=== PATIENT | male | born 1985 | race Caucasian/White ===

== ENCOUNTER → 2016-06-18 | Outpatient (CLI) | payer BC ==
[2016-06-18 15:49] LABS: CH 29.2; CHCM 32.5; HCT 43.9 % (39.0-53.0); HDW 2.26; HGB 14.1 gm/dL (13.0-17.5); MCHC 32.2 g/dL (31.0-37.0); MCV 90.1 fL (80.0-100.0); Mean Platelet Volume 7.6; RBC 4.87 m/uL (4.30-5.90)
[2016-06-18 16:01] LABS: ALT 32 U/L (21-72); AST 17 U/L (17-59); Alkaline Phosphatase 109 U/L (38-126); Anion Gap 11 mmol/L; Blood Urea Nitrogen 21 mg/dL (9-20); C Reactive Protein <5.0 mg/L (<10.0); Calcium 9.7 mg/dL (8.4-10.2); Carbon Dioxide 30 mmol/L (22-30); Chloride 99 mmol/L (98-107); Glucose 100 mg/dL (74-99); Non-African American GFR(MDRD) >60 (>60 ml/min/1.73 sqM); Potassium 4.8 mmol/L (3.5-5.1); Sodium 140 mmol/L (137-145); Total Bilirubin 0.3 mg/dL (0.2-1.3); Total Protein 7.3 g/dL (6.3-8.2)
[2016-06-18 16:51] LABS: Erythrocyte Sedimentation Rate 7 mm/hr (0-15)
== END | disposition home or self-care (01) ==
LOC: LABWHC1 15:18
DX: K50.80 Crohn's disease of both small and large intestine without complications (principal)
CPT/HCPCS: 36415; 80053; 82306; 85027; 85652; 86140

== ENCOUNTER → 2016-09-04 | Outpatient (CLI) | payer BC ==
[2016-09-04 08:36] LABS: CH 29.5; CHCM 32.5; HCT 42.6 % (39.0-53.0); HDW 2.22; HGB 13.8 gm/dL (13.0-17.5); MCH 29.6 pg (25.0-35.0); MCHC 32.4 g/dL (31.0-37.0); MCV 91.3 fL (80.0-100.0); Mean Platelet Volume 7.3; RBC 4.67 m/uL (4.30-5.90); RDW 13.2 % (11.5-15.5); WBC 7.2 k/uL (3.8-10.6)
[2016-09-04 11:41] LABS: ALT 26 U/L (21-72); AST 17 U/L (17-59); Alkaline Phosphatase 73 U/L (38-126); Anion Gap 11 mmol/L; Blood Urea Nitrogen 18 mg/dL (9-20); C Reactive Protein <5.0 mg/L (<10.0); Calcium 9.6 mg/dL (8.4-10.2); Carbon Dioxide 28 mmol/L (22-30); Chloride 102 mmol/L (98-107); Glucose 86 mg/dL (74-99); Non-African American GFR(MDRD) >60 (>60 ml/min/1.73 sqM); Sodium 141 mmol/L (137-145); Total Bilirubin 0.5 mg/dL (0.2-1.3); Total Protein 7.2 g/dL (6.3-8.2)
[2016-09-04 11:59] LABS: Erythrocyte Sedimentation Rate 10 mm/hr (0-15)
== END | disposition home or self-care (01) ==
LOC: LABWHC1 06:40
DX: K50.80 Crohn's disease of both small and large intestine without complications (principal)
CPT/HCPCS: 36415; 80053; 82542; 82657; 85027; 85652; 86140

== ENCOUNTER → 2016-09-20 | Outpatient (CLI) | payer BC ==
[2016-09-20 16:11] LABS: CH 29.7; CHCM 33.6; HCT 39.3 % (39.0-53.0); HDW 2.35; HGB 13.6 gm/dL (13.0-17.5); MCH 30.6 pg (25.0-35.0); MCHC 34.6 g/dL (31.0-37.0); MCV 88.4 fL (80.0-100.0); Mean Platelet Volume 7.4; RBC 4.45 m/uL (4.30-5.90); RDW 12.2 % (11.5-15.5); WBC 7.4 k/uL (3.8-10.6)
[2016-09-20 16:24] LABS: ALT 24 U/L (21-72); AST 20 U/L (17-59); Alkaline Phosphatase 79 U/L (38-126); Anion Gap 9 mmol/L; Blood Urea Nitrogen 21 mg/dL (9-20); C Reactive Protein 9.2 mg/L (<10.0); Calcium 9.9 mg/dL (8.4-10.2); Carbon Dioxide 29 mmol/L (22-30); Chloride 102 mmol/L (98-107); Glucose 89 mg/dL (74-99); Non-African American GFR(MDRD) >60 (>60 ml/min/1.73 sqM); Potassium 4.1 mmol/L (3.5-5.1); Sodium 140 mmol/L (137-145); Total Bilirubin 0.5 mg/dL (0.2-1.3); Total Protein 7.6 g/dL (6.3-8.2)
[2016-09-20 16:55] LABS: Erythrocyte Sedimentation Rate 18 mm/hr (0-15)
== END ==
LOC: LABWHC1 15:48
DX: K50.80 Crohn's disease of both small and large intestine without complications (principal)
CPT/HCPCS: 36415; 80053; 82542; 82657; 85027; 85652; 86140

== ENCOUNTER 2016-09-24 12:21 | Day surgery (SDC) | payer BC ==
[2016-09-20 12:39] VITALS: BMI 24.3
[~2016-09-24 12:21] MED LIST: LACTATED RINGERS 1,000 ML IV SCH; LIDOCAINE 1% 20 ML VIAL (10MG/ML) FOR IV START INTRADERMA PRN
[2016-09-24 12:29] VITALS: RESP 18; TEMP 98
[2016-09-24] MEDS ORDERED: LACTATED RINGERS 1,000 ML IV ONE (12:37)
[2016-09-24 12:41] LABS: Glucose,Whole Blood 88 mg/dL (75-99)
[2016-09-24] MEDS ORDERED: PROPOFOL 10 MG/ML 20 ML VIAL IV ONE (14:34)
[2016-09-24 15:31] VITALS: BP 123/79; PULSE 71
--- NOTE | 2016-09-28 03:59 | P.PCN ---
Date of Procedure: 09/24/16 Procedure(s) Performed: Procedure: Incomplete colonoscopy with biopsy. Preoperative diagnosis: Crohn's disease. Postoperative diagnosis: 1. Inability to to advance the endoscope secondary to sigmoid stricture. 2. Mild to moderate activity in the areas examined. Brief clinical history: The patient is a 31-year-old male who was diagnosed with Crohn's disease around 8 years ago. The patient was steroid dependent and required Remicade starting June 2012 for active stricturing Crohn's disease with control of his symptoms. He had to be changed to humira last year because of reaction to remicade. This in turn had to be discontinued last month because of reactions that started to occur consistently after his injections. He is currently om imuran and steroids. I scheduled this evaluation to assess activity as patient reports symptoms with no corresponding changes clinically and in his inflammattory markers. Procedure: With the patient on his left lateral decubitus position and after informed consent and adequate sedation,the perianal area was inspected and it did not show any fissures or fistulas and there were no obvious skin tags. There were no masses felt on digital rectal examination. The Olympus PCF H180 AL videocolonoscope was then inserted in the rectum in the usual fashion. I was not able to advance the endoscope due to a strictured area in the sigmoid. The involved segment in the sigmoid cobblestoning and edema with friability but no spontaneous bleeding and small ulcerations. There were uninvolved areas that showed normal looking mucosa. I obtained biopsies from the sigmoid, I then retroflexed the endoscope in the rectum before the endoscope was withdrawn. The patient tolerated the procedure well. Plan: The findings were shared with the patient and his parents. Will await pathology results. Will proceed with the tapering prednisone schedule while imuran is getting on board. Will send stool studies. He has an appointment for F /U in the office on the . I will keep you updated on his progress.
== END 2016-09-24 16:37 | disposition home or self-care (01) ==
LOC: ORWHC2ENDO 12:21
DX: K52.9 Noninfective gastroenteritis and colitis, unspecified (principal); K56.69 Other intestinal obstruction; K50.90 Crohn's disease, unspecified, without complications; Z79.899 Other long term (current) drug therapy; Z79.52 Long term (current) use of systemic steroids; Z88.8 Allergy status to other drugs, medicaments and biological substances
CPT/HCPCS: 88305; 87324; 87493; 87045; 87046; 45331; J2704; 45380

== ENCOUNTER → 2016-10-02 | Outpatient (CLI) | payer BC ==
[2016-10-02 17:25] LABS: CH 29.7; HCT 40.7 % (39.0-53.0); HDW 2.31; HGB 13.5 gm/dL (13.0-17.5); MCHC 33.2 g/dL (31.0-37.0); MCV 90.4 fL (80.0-100.0); RBC 4.51 m/uL (4.30-5.90); RDW 12.6 % (11.5-15.5); WBC 8.5 k/uL (3.8-10.6)
[2016-10-02 17:42] LABS: ALT 27 U/L (21-72); AST 22 U/L (17-59); Alkaline Phosphatase 70 U/L (38-126); Amylase 115 U/L (30-110); Anion Gap 10 mmol/L; Blood Urea Nitrogen 19 mg/dL (9-20); C Reactive Protein 37.7 mg/L (<10.0); Calcium 9.6 mg/dL (8.4-10.2); Carbon Dioxide 29 mmol/L (22-30); Chloride 98 mmol/L (98-107); Glucose 92 mg/dL (74-99); Non-African American GFR(MDRD) >60 (>60 ml/min/1.73 sqM); Potassium 4.7 mmol/L (3.5-5.1); Sodium 137 mmol/L (137-145); Total Bilirubin 0.4 mg/dL (0.2-1.3); Total Protein 7.6 g/dL (6.3-8.2)
[2016-10-02 18:34] LABS: Erythrocyte Sedimentation Rate 41 mm/hr (0-15)
== END | disposition home or self-care (01) ==
LOC: LABWHC1 17:04
DX: K50.80 Crohn's disease of both small and large intestine without complications (principal); R21 Rash and other nonspecific skin eruption
CPT/HCPCS: 36415; 80053; 82150; 83690; 85027; 85652; 86140

== ENCOUNTER → 2016-11-06 | Outpatient (CLI) | payer BC ==
[2016-11-06 07:08] LABS: CH 30.9; CHCM 32.6; HCT 42.9 % (39.0-53.0); HDW 2.23; HGB 13.8 gm/dL (13.0-17.5); MCH 30.6 pg (25.0-35.0); MCHC 32.2 g/dL (31.0-37.0); Mean Platelet Volume 6.9; RBC 4.52 m/uL (4.30-5.90); WBC 7.4 k/uL (3.8-10.6)
[2016-11-06 08:36] LABS: ALT 30 U/L (21-72); AST 18 U/L (17-59); Alkaline Phosphatase 70 U/L (38-126); Amylase 48 U/L (30-110); Anion Gap 8 mmol/L; Blood Urea Nitrogen 21 mg/dL (9-20); C Reactive Protein 5.9 mg/L (<10.0); Calcium 9.4 mg/dL (8.4-10.2); Carbon Dioxide 29 mmol/L (22-30); Chloride 103 mmol/L (98-107); Glucose 93 mg/dL (74-99); Non-African American GFR(MDRD) >60 (>60 ml/min/1.73 sqM); Potassium 4.3 mmol/L (3.5-5.1); Sodium 140 mmol/L (137-145); Total Bilirubin 0.6 mg/dL (0.2-1.3); Total Protein 6.6 g/dL (6.3-8.2)
[2016-11-06 10:18] LABS: Erythrocyte Sedimentation Rate 8 mm/hr (0-15)
== END | disposition home or self-care (01) ==
LOC: LABWHC1 06:38
DX: K50.80 Crohn's disease of both small and large intestine without complications (principal)
CPT/HCPCS: 36415; 80053; 82150; 83690; 85027; 85652; 86140

== ENCOUNTER → 2017-01-10 | Outpatient (CLI) | payer BC ==
[2017-01-10 16:38] LABS: CHCM 34.1; HCT 41.4 % (39.0-53.0); HDW 2.37; HGB 13.9 gm/dL (13.0-17.5); MCH 30.7 pg (25.0-35.0); MCHC 33.7 g/dL (31.0-37.0); MCV 91.1 fL (80.0-100.0); RBC 4.54 m/uL (4.30-5.90); WBC 5.9 k/uL (3.8-10.6)
[2017-01-10 17:07] LABS: ALT 27 U/L (21-72); AST 24 U/L (17-59); Alkaline Phosphatase 101 U/L (38-126); Anion Gap 11 mmol/L; Blood Urea Nitrogen 23 mg/dL (9-20); C Reactive Protein <5.0 mg/L (<10.0); Calcium 9.7 mg/dL (8.4-10.2); Carbon Dioxide 27 mmol/L (22-30); Chloride 103 mmol/L (98-107); Glucose 82 mg/dL (74-99); Non-African American GFR(MDRD) 55 (>60 ml/min/1.73 sqM); Sodium 141 mmol/L (137-145); Total Bilirubin 0.3 mg/dL (0.2-1.3)
[2017-01-10 18:49] LABS: Erythrocyte Sedimentation Rate 13 mm/hr (0-15)
== END | disposition home or self-care (01) ==
LOC: LABWHC1 16:12
DX: K50.80 Crohn's disease of both small and large intestine without complications (principal)
CPT/HCPCS: 36415; 80053; 85027; 85652; 86140

== ENCOUNTER → 2017-05-30 | Outpatient (CLI) | payer BC ==
[2017-05-30 18:03] LABS: Basophils % (A) 0 %; Eosinophils % (A) 1 %; HCT 42.3 % (39.0-53.0); HGB 13.3 gm/dL (13.0-17.5); Lymphocytes # (A) 1.7 k/uL (1.0-4.8); Lymphocytes % (A) 21 %; MCH 28.5 pg (25.0-35.0); MCHC 31.3 g/dL (31.0-37.0); MCV 91.1 fL (80.0-100.0); Mean Platelet Volume 7.7; Monocytes # (A) 0.6 k/uL (0-1.0); Monocytes % (A) 8 %; Neutrophils # (A) 5.7 k/uL (1.3-7.7); Neutrophils % (A) 70 %; Platelet Count 298 k/uL (150-450); RBC 4.64 m/uL (4.30-5.90); RDW 14.3 % (11.5-15.5); WBC 8.1 k/uL (3.8-10.6)
[2017-05-30 18:21] LABS: ALT 32 U/L (21-72); AST 18 U/L (17-59); Alkaline Phosphatase 96 U/L (38-126); Anion Gap 10 mmol/L; Blood Urea Nitrogen 22 mg/dL (9-20); C Reactive Protein 11.1 mg/L (<10.0); Calcium 9.9 mg/dL (8.4-10.2); Carbon Dioxide 32 mmol/L (22-30); Chloride 101 mmol/L (98-107); Glucose 95 mg/dL (74-99); Potassium 3.8 mmol/L (3.5-5.1); Sodium 143 mmol/L (137-145); Total Bilirubin 0.3 mg/dL (0.2-1.3); Total Protein 7.1 g/dL (6.3-8.2)
[2017-05-30 19:45] LABS: Erythrocyte Sedimentation Rate 15 mm/hr (0-15)
== END | disposition home or self-care (01) ==
LOC: LABWHC1 17:15
DX: K50.90 Crohn's disease, unspecified, without complications (principal)
CPT/HCPCS: 36415; 80053; 85025; 85652; 86140

== ENCOUNTER → 2017-06-14 | Day surgery (SDC) | payer BC ==
[2017-06-12 12:24] VITALS: BMI 23.1
[~2017-06-14] MED LIST changes: +LIDOCAINE 1% 20 ML VIAL (10MG/ML) FOR IV START INTRADERMA ONE; -LIDOCAINE 1% 20 ML VIAL (10MG/ML) FOR IV START INTRADERMA PRN; +LIDOCAINE 1% INJ 10MG/ML (20 ML MDV) ONE; +PROPOFOL 10 MG/ML 20 ML VIAL IV ONE
[2017-06-14 13:56] VITALS: TEMP 99.4
[2017-06-14 15:52] VITALS: RESP 18
[2017-06-14 16:36] VITALS: BP 117/67; PULSE 90
--- NOTE | 2017-06-14 18:37 | P.PCN ---
Date of Procedure: 06/14/17 Procedure(s) Performed: Procedure: Colonoscopy and biopsy. Preoperative diagnosis: Crohn's disease with abdominal symptoms. Postoperative diagnosis: Active Crohn's disease involving the colon in a segmental fashion with strictures that necessitated using the Olympus-GIF 160 upper endoscope. Terminal ileum was inspected from a close distance and it is somewhat blunted biopsy was obtained. Biopsies also obtained in the transverse colon. Preparation: HalfLytely prep. Sedation: Was provided by anesthesia. Brief clinical history: The patient is a 31-year-old male who was diagnosed with Crohn's disease around 9 years ago. The patient was steroid dependent and required Remicade starting June 2012 for active stricturing Crohn's disease with control of his symptoms. He had to be changed to humira in 2015 because of reaction to remicade. This in turn had to be discontinued because of reactions that started to occur consistently after his injections. He was tried on imuran and and that gave him in reactions with the vasculitis type illness. His last evaluation was in September 2016 and I was not able to advance the endoscope because of his sigmoid stricture. The patient was doing clinically well after that off any medications until recently when he started to have episodes of abdominal pain and diarrhea every time he eats. He started to take prednisone 8 mg tablets which he had and I scheduled him for this evaluation to assess for the activity of his disease. His laboratory evaluation showed a very slight elevation and the CRP but otherwise was not revealing. Procedure: With the patient on his left lateral decubitus position and after informed consent and adequate sedation,the perianal area was inspected and it did not show any fissures or fistulas and there were no obvious skin tags. There were no masses felt on digital rectal examination. The Olympus PCF H190 videocolonoscope was then inserted in the rectum in the usual fashion. I was not able to advance the endoscope due to a strictured area in the sigmoid between 20 and 30 cm from the anal verge. I exchanged the colonoscope for a GIF 160 video upper endoscope which I was able to pass through the stricture with gentle manipulation of the endoscope. I was then able to pass the endoscope all the way to the cecum. I was able to inspect the terminal ileum from a close distance without actually intubate it because of the shorter length of the endoscope. I obtained blind biopsy from the terminal ileum. The right colon didn't appear is involved and there were segment of inflammation in the transverse colon in addition to segments in the descending colon and in the sigmoid distal to the stricture. The involved segments showed cobblestoning and edema with friability and multiple small ulcerations but no spontaneous bleeding. There were uninvolved areas that showed normal looking mucosa. I obtained biopsies from involved segments, I then retroflexed the endoscope in the rectum before the endoscope was withdrawn. The patient tolerated the procedure well. Plan: I discussed at length with the patient and his parents the findings on this exam. I will await biopsy results and plan further treatment accordingly.
== END ==
LOC: ORWHC2ENDO 13:25
DX: K51.80 Other ulcerative colitis without complications (principal); Z79.52 Long term (current) use of systemic steroids; Z88.8 Allergy status to other drugs, medicaments and biological substances
CPT/HCPCS: 88305; 45380; J2001; J2704

== ENCOUNTER → 2017-09-10 | Outpatient (CLI) | payer BC | END | disposition home or self-care (01) | LOC: LABWHC1 17:23 | DX: K50.80 Crohn's disease of both small and large intestine without complications (principal) | CPT/HCPCS: 36415; 82306; 83993; 87324; 89055 ==

== ENCOUNTER → 2017-09-12 | Outpatient (CLI) | payer BC ==
[2017-09-12 07:21] LABS: HCT 40.9 % (39.0-53.0); HGB 13.4 gm/dL (13.0-17.5); MCH 28.1 pg (25.0-35.0); MCHC 32.9 g/dL (31.0-37.0); MCV 85.6 fL (80.0-100.0); Mean Platelet Volume 6.5; Platelet Count 441 k/uL (150-450); RBC 4.77 m/uL (4.30-5.90); RDW 12.4 % (11.5-15.5); WBC 11.7 k/uL (3.8-10.6)
[2017-09-12 10:05] LABS: Albumin 3.3 g/dL (3.5-5.0); C Reactive Protein 14.5 mg/L (<10.0); Calcium 9.4 mg/dL (8.4-10.2); Potassium 4.2 mmol/L (3.5-5.1); Total Bilirubin 0.2 mg/dL (0.2-1.3); Total Protein 6.1 g/dL (6.3-8.2)
[2017-09-12 10:10] LABS: Erythrocyte Sedimentation Rate 23 mm/hr (0-15)
== END | disposition home or self-care (01) ==
LOC: LABWHC1 06:52
DX: K50.80 Crohn's disease of both small and large intestine without complications (principal)
CPT/HCPCS: 36415; 80053; 85027; 85652; 86140

== ENCOUNTER 2017-10-04 14:06 | Emergency (ER) | payer BC ==
[2017-10-04] MEDS ORDERED: SODIUM CHLORIDE 0.9% 1,000 ML IV STA (14:37)
[2017-10-04] MEDS ORDERED: ONDANSETRON 4 MG/2 ML VIAL IVP STA (14:37)
[2017-10-04] MEDS ORDERED: RX INFO: IV CONTRAST WAS GIVEN 1 EACH MISC MISCELLANE PRN (14:37)
[2017-10-04] MEDS ORDERED: MORPHINE SULFATE 4 MG/ML SYRINGE IV STA (14:37)
--- NOTE | 2017-10-04 14:38 | ED ---
Abdominal Pain HPI - General Chief Complaint: Abdominal Pain Stated Complaint: not able to eat Time Seen by Provider: 10/04/17 14:25 Source: patient Mode of arrival: ambulatory Limitations: no limitations - History of Present Illness Initial Comments: Patient complains of abdominal pain, diarrhea and vomiting for about 4 days. His symptoms are getting worse. He has had an appendectomy. He has a history of Crohn's disease. He denies blood in the stool. He has no black or tarry stool. He has no chest or back pain. Nothing makes his pain and other symptoms better or worse. He has taken his usual medication, but it is not helping. He has no weakness, lightheadedness or dizziness. - Related Data Home Medications Medication Instructions Recorded Confirmed predniSONE 50 mg PO DAILY 09/07/15 10/04/17 Certolizumab Pegol [Cimzia] 400 mg SQ Q14D 10/04/17 10/04/17 Cyanocobalamin [Vitamin B-12] 500 mcg PO DAILY 10/04/17 10/04/17 Allergies Allergy/AdvReac Type Severity Reaction Status Date / Time adalimumab [From Humira] Allergy Anaphylaxis Verified 10/04/17 14:32 azathioprine [From Imuran] Allergy Anaphylaxis Verified 10/04/17 14:32 infliximab [From Remicade] Allergy Anaphylaxis Verified 10/04/17 14:32 venom-honey bee Allergy Anaphylaxis Verified 10/04/17 14:32 Review of Systems ROS Statement: Those systems with pertinent positive or pertinent negative responses have been documented in the HPI. ROS Other: All systems not noted in ROS Statement are negative. Past Medical History Past Medical History: GI Bleed Additional Past Medical History / Comment(s): CROHNS-having flare up History of Any Multi-Drug Resistant Organisms: None Reported Past Surgical History: Appendectomy, Hernia Repair Additional Past Surgical History / Comment(s): COLONOSCOPIES/. EYE SURG TO CORRECT LAZY EYE Past Anesthesia/Blood Transfusion Reactions: No Reported Reaction Past Psychological History: No Psychological Hx Reported Smoking Status: Never smoker Past Alcohol Use History: Occasional Past Drug Use History: None Reported - Past Family History Mother Family Medical History: No Reported History General Exam Limitations: no limitations General appearance: alert, in no apparent distress Head exam: Present: atraumatic, normocephalic, normal inspection Eye exam: Present: normal appearance, PERRL, EOMI. Absent: scleral icterus, conjunctival injection, periorbital swelling ENT exam: Present: normal exam, mucous membranes moist Neck exam: Present: normal inspection. Absent: tenderness, meningismus, lymphadenopathy Respiratory exam: Present: normal lung sounds bilaterally. Absent: respiratory distress, wheezes, rales, rhonchi, stridor Cardiovascular Exam: Present: regular rate, normal rhythm, normal heart sounds. Absent: systolic murmur, diastolic murmur, rubs, gallop, clicks GI/Abdominal exam: Present: soft, tenderness, normal bowel sounds. Absent: distended, guarding, rebound, rigid Extremities exam: Present: normal inspection, full ROM, normal capillary refill. Absent: tenderness, pedal edema, joint swelling, calf tenderness Back exam: Present: normal inspection Neurological exam: Present: alert, oriented X3, CN II-XII intact Psychiatric exam: Present: normal affect, normal mood Skin exam: Present: warm, dry, intact, normal color. Absent: rash Course Vital Signs 10/04/17 14:17 Temperature 100.4 F H Pulse Rate 83 Respiratory 20 Rate Blood Pressure 143/86 O2 Sat by Pulse 96 Oximetry Medical Decision Making - Medical Decision Making CT reveals inflammation without acute surgical emergency. I reevaluated the patient. He is able to tolerate oral intake. There is no evidence of an emergency condition that would require admission to the hospital or further workup. 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 He did not request admission, and did not have any recommendations for further treatment at this time. Patient is feeling better and is stable for discharge and outpatient follow-up. - Lab Data Result diagrams: 10/04/17 14:30 10/04/17 14:30 Lab Results 10/04/17 10/04/17 Range/Units 14:30 14:30 WBC 6.9 (3.8-10.6) k/uL RBC 5.11 (4.30-5.90) m/uL Hgb 14.4 (13.0-17.5) gm/dL Hct 43.2 (39.0-53.0) % MCV 84.5 (80.0-100.0) fL MCH 28.2 (25.0-35.0) pg MCHC 33.3 (31.0-37.0) g/dL RDW 12.5 (11.5-15.5) % Plt Count 362 (150-450) k/uL Neutrophils % 90 % Lymphocytes % 4 % Monocytes % 4 % Eosinophils % 0 % Basophils % 0 % Neutrophils # 6.2 (1.3-7.7) k/uL Lymphocytes # 0.3 L (1.0-4.8) k/uL Monocytes # 0.3 (0-1.0) k/uL Eosinophils # 0.0 (0-0.7) k/uL Basophils # 0.0 (0-0.2) k/uL Sodium 139 (137-145) mmol/L Potassium 4.8 (3.5-5.1) mmol/L Chloride 100 (98-107) mmol/L Carbon Dioxide 29 (22-30) mmol/L Anion Gap 10 mmol/L BUN 17 (9-20) mg/dL Creatinine 1.15 (0.66-1.25) mg/dL Est GFR (CKD-EPI)AfAm >90 (>60 ml/min/1.73 sqM) Est GFR (CKD-EPI)NonAf 84 (>60 ml/min/1.73 sqM) Glucose 112 H (74-99) mg/dL Calcium 9.4 (8.4-10.2) mg/dL Total Bilirubin 0.3 (0.2-1.3) mg/dL AST 11 L (17-59) U/L ALT 24 (21-72) U/L Alkaline Phosphatase 86 (38-126) U/L Total Protein 6.7 (6.3-8.2) g/dL Albumin 3.7 (3.5-5.0) g/dL Amylase 48 (30-110) U/L Lipase 44 (23-300) U/L Disposition Clinical Impression: IBD (inflammatory bowel disease) Disposition: HOME SELF-CARE Condition: Good Instructions: Crohn Disease (ED) Is patient prescribed a controlled substance at d/c from ED?: No Referrals: None,Stated [Primary Care Provider] - 1-2 days Bi Carmona MD [STAFF PHYSICIAN] - 1-2 days
[2017-10-04 14:58] LABS: Basophils % (A) 0 %; Eosinophils % (A) 0 %; HCT 43.2 % (39.0-53.0); HGB 14.4 gm/dL (13.0-17.5); Lymphocytes # (A) 0.3 k/uL (1.0-4.8); Lymphocytes % (A) 4 %; MCH 28.2 pg (25.0-35.0); MCHC 33.3 g/dL (31.0-37.0); MCV 84.5 fL (80.0-100.0); Mean Platelet Volume 6.5; Monocytes # (A) 0.3 k/uL (0-1.0); Monocytes % (A) 4 %; Neutrophils # (A) 6.2 k/uL (1.3-7.7); Neutrophils % (A) 90 %; Platelet Count 362 k/uL (150-450); RBC 5.11 m/uL (4.30-5.90); RDW 12.5 % (11.5-15.5); WBC 6.9 k/uL (3.8-10.6)
[2017-10-04 15:05] LABS: ALT 24 U/L (21-72); AST 11 U/L (17-59); Albumin 3.7 g/dL (3.5-5.0); Alkaline Phosphatase 86 U/L (38-126); Amylase 48 U/L (30-110); Anion Gap 10 mmol/L; Blood Urea Nitrogen 17 mg/dL (9-20); Calcium 9.4 mg/dL (8.4-10.2); Carbon Dioxide 29 mmol/L (22-30); Chloride 100 mmol/L (98-107); Glucose 112 mg/dL (74-99); Lipase 44 U/L (23-300); Potassium 4.8 mmol/L (3.5-5.1); Sodium 139 mmol/L (137-145); Total Bilirubin 0.3 mg/dL (0.2-1.3); Total Protein 6.7 g/dL (6.3-8.2)
--- NOTE | 2017-10-04 15:59 | CT ---
EXAMINATION TYPE: CT abdomen pelvis w con DATE OF EXAM: 10/04/2017 COMPARISON: NONE HISTORY: Crohn's flare up. Nausea, vomiting and diarrhea. CT DLP: 1425 mGycm Automated exposure control for dose reduction was used. TECHNIQUE: Helical acquisition of images was performed from the lung bases through the pelvis. CONTRAST: Performed without Oral Contrast and with IV Contrast, patient injected with 100 mL of Isovue M300. FINDINGS: LUNG BASES: Very minimal right basilar subsegmental atelectasis is identified. Mild symmetric gynecom astia is partially seen. LIVER/GB: Wedge-shaped area of hypoattenuation within segment IVb along the fissure for the falciform ligament most likely relates to focal fatty infiltration. Layering high density within the gallbladd er body is favored to represent a small amount of biliary sludge. PANCREAS: No significant abnormality is seen. SPLEEN: No significant abnormality is seen. ADRENALS: No nodularity or thickening. KIDNEYS: Kidneys enhance symmetrically without hydronephrosis. FREE AIR: No free air is visualized. RETROPERITONEAL ADENOPATHY: Few scattered nonenlarged mesenteric lymph nodes are seen. No greater th an 1 cm short axis lymph node is seen within the abdomen or pelvis. REPRODUCTIVE ORGANS: No significant abnormality is seen URINARY BLADDER: Distended and unremarkable. OSSEOUS STRUCTURES: Punctate sclerotic foci within the right hemipelvis are favored to represent [place]. Very mild sacroiliac joint sclerosis can be seen in inflammatory bowel disease and is pres ent bilaterally. Degenerative disc disease is present at L5-S1 with vacuum disc phenomenon. BOWEL: There is diffuse thickening, pericolonic fat stranding, and vasa recta engorgement along the entirety of the colon and extending into to the terminal ileum. Submucosal deposition of fat is also seen within the terminal ileum suggesting acute on chronic component. Although the small bowel is rubia pacified and limited there are few slightly prominent few small bowel loops within the mid abdomen an d left lower quadrant, likely related to ileus. Additionally within the right mid abdomen there is fo pricila bowel wall thickening measuring up to 7 mm on series 3 image 52. IMPRESSION: FINDINGS REDEYE GUNNER OF ACUTE ON CHRONIC INFLAMMATORY CHANGE IN KEEPING WITH THE PATIENT'S HISTORY OF CROHN'S DISEASE. THERE IS PANCOLITIS AND INVOLVEMENT OF THE DISTAL ILEUM. IN ADDITION THERE IS RI GHT MID AND RIGHT LOWER QUADRANT SMALL BOWEL WALL THICKENING. NO PERICOLONIC FLUID COLLECTION.
[2017-10-04 17:51] VITALS: BP 139/87; PULSE 80; RESP 16; TEMP 99.7
== END 2017-10-04 17:56 | disposition home or self-care (01) ==
LOC: EC 14:06
DX: K52.89 Other specified noninfective gastroenteritis and colitis (principal); K50.90 Crohn's disease, unspecified, without complications; Z79.52 Long term (current) use of systemic steroids; Z79.899 Other long term (current) drug therapy; Z88.8 Allergy status to other drugs, medicaments and biological substances; Z91.030 Bee allergy status; Z90.49 Acquired absence of other specified parts of digestive tract
CPT/HCPCS: 36415; 80053; 82150; 83690; 85025; 74177; 99284; 96374; 96375; 96361; J2270; J2405; Q9967

== ENCOUNTER → 2017-11-06 | Outpatient (CLI) | payer BC ==
[2017-11-06 13:13] LABS: HCT 38.9 % (39.0-53.0); HGB 12.6 gm/dL (13.0-17.5); Hypochromasia Slight; MCH 27.5 pg (25.0-35.0); MCHC 32.4 g/dL (31.0-37.0); Mean Platelet Volume 6.4; Platelet Count 462 k/uL (150-450); RBC 4.58 m/uL (4.30-5.90); RDW 13.3 % (11.5-15.5); WBC 6.7 k/uL (3.8-10.6)
[2017-11-06 13:27] LABS: ALT 25 U/L (21-72); AST 17 U/L (17-59); Albumin 3.8 g/dL (3.5-5.0); Alkaline Phosphatase 74 U/L (38-126); Anion Gap 12 mmol/L; Blood Urea Nitrogen 20 mg/dL (9-20); Calcium 9.8 mg/dL (8.4-10.2); Carbon Dioxide 31 mmol/L (22-30); Chloride 98 mmol/L (98-107); Glucose 70 mg/dL (74-99); Potassium 5.1 mmol/L (3.5-5.1); Sodium 141 mmol/L (137-145); Total Bilirubin 0.2 mg/dL (0.2-1.3); Total Protein 6.9 g/dL (6.3-8.2)
[2017-11-06 13:39] LABS: C Reactive Protein 147.7 mg/L (<10.0)
[2017-11-06 15:18] LABS: Erythrocyte Sedimentation Rate 70 mm/hr (0-15)
== END | disposition home or self-care (01) ==
LOC: LABWHC1 11:35
DX: K50.80 Crohn's disease of both small and large intestine without complications (principal)
CPT/HCPCS: 36415; 80053; 85027; 85652; 86140

== ENCOUNTER → 2017-11-16 | Outpatient (CLI) | payer BC | END | disposition home or self-care (01) | LOC: LABWHC1 09:42 | DX: K50.80 Crohn's disease of both small and large intestine without complications (principal) | CPT/HCPCS: 87324 ==

== ENCOUNTER → 2017-12-10 | Outpatient (CLI) | payer BC | END | disposition home or self-care (01) | LOC: LABWHC1 09:05 | PROVIDERS: ATTEND Physician Assistant | DX: K50.90 Crohn's disease, unspecified, without complications (principal) | CPT/HCPCS: 83993 ==

== ENCOUNTER → 2018-01-25 | Outpatient (CLI) | payer BC ==
[2018-01-25 11:31] LABS: HCT 40.6 % (39.0-53.0); HGB 12.5 gm/dL (13.0-17.5); Hypochromasia Slight; MCHC 30.8 g/dL (31.0-37.0); MCV 81.2 fL (80.0-100.0); Platelet Count 387 k/uL (150-450); WBC 8.6 k/uL (3.8-10.6)
[2018-01-25 11:44] LABS: Albumin 3.6 g/dL (3.5-5.0); C Reactive Protein 49.6 mg/L (<10.0); Calcium 9.5 mg/dL (8.4-10.2); Total Bilirubin 0.3 mg/dL (0.2-1.3); Total Protein 6.8 g/dL (6.3-8.2)
[2018-01-25 13:23] LABS: Erythrocyte Sedimentation Rate 36 mm/hr (0-15)
== END | disposition home or self-care (01) ==
LOC: LABWHC1 10:31
DX: K50.80 Crohn's disease of both small and large intestine without complications (principal)
CPT/HCPCS: 36415; 80053; 85027; 85652; 86140

== ENCOUNTER → 2018-04-02 | Outpatient (CLI) | payer BC ==
[2018-04-02 19:31] LABS: HCT 37.7 % (39.0-53.0); HGB 11.7 gm/dL (13.0-17.5); Hypochromasia Slight; MCH 25.5 pg (25.0-35.0); MCV 82.3 fL (80.0-100.0); Mean Platelet Volume 6.9; Platelet Count 435 k/uL (150-450); RBC 4.58 m/uL (4.30-5.90); RDW 14.4 % (11.5-15.5); WBC 9.6 k/uL (3.8-10.6)
[2018-04-02 20:16] LABS: Erythrocyte Sedimentation Rate 31 mm/hr (0-15)
[2018-04-03 04:06] LABS: Albumin 4.2 g/dL (3.80-4.90); Albumin/Globulin Ratio 1.75 (1.20-2.10); C Reactive Protein 3.1 mg/dL (0.0-0.8); Calcium 9.2 mg/dL (8.7-10.3); Globulin 2.4 g/dL (2.1-3.7); Potassium 4.8 mmol/L (3.5-5.5); Total Bilirubin 0.3 mg/dL (0.3-1.2); Total Protein 6.6 g/dL (6.2-8.2)
== END ==
LOC: LABWHC1 16:19
DX: K50.90 Crohn's disease, unspecified, without complications (principal)
CPT/HCPCS: 36415; 80053; 85027; 85652; 86140

== ENCOUNTER → 2018-05-28 | Outpatient (CLI) | payer BC ==
[2018-05-28 16:46] LABS: HCT 42.3 % (39.0-53.0); MCH 25.6 pg (25.0-35.0); MCHC 30.7 g/dL (31.0-37.0); MCV 83.3 fL (80.0-100.0); Mean Platelet Volume 6.5; Platelet Count 428 k/uL (150-450); RBC 5.08 m/uL (4.30-5.90); RDW 14.2 % (11.5-15.5); WBC 12.3 k/uL (3.8-10.6)
[2018-05-28 18:41] LABS: Erythrocyte Sedimentation Rate 32 mm/hr (0-15)
[2018-05-29 03:02] LABS: Albumin 4.3 g/dL (3.80-4.90); Albumin/Globulin Ratio 1.79 (1.20-2.10); Anion Gap 8.5 mmol/L (4.00-12.00); C Reactive Protein 0.8 mg/dL (0.0-0.8); Calcium 9.6 mg/dL (8.7-10.3); Carbon Dioxide 30.5 mmol/L (21.6-31.8); Globulin 2.4 g/dL (1.6-3.3); Potassium 4.3 mmol/L (3.5-5.5); Total Bilirubin 0.2 mg/dL (0.3-1.2); Total Protein 6.7 g/dL (6.2-8.2)
== END | disposition home or self-care (01) ==
LOC: LABWHC1 15:53
DX: K50.90 Crohn's disease, unspecified, without complications (principal)
CPT/HCPCS: 36415; 80053; 85027; 85652; 86140

== ENCOUNTER → 2018-09-16 | Outpatient (CLI) | payer BC ==
--- NOTE | 2018-09-16 13:39 | BD ---
EXAMINATION TYPE: Axial Bone Density DATE OF EXAM: 09/16/2018 COMPARISON: NONE CLINICAL HISTORY: Height: 73 inches Weight: 186 FRAX RISK QUESTIONS: Alcohol (3 or more units per day): no Family History (Parent hip fracture): no Glucocorticoids (More than 3mos): not now (Ex: prednisone, prednisolone, methylprednisolone, dexamethasone, and hydrocortisone). History of Fracture in Adulthood: no Secondary Osteoporosis: 1. Type 1 Diabetes: no 2. Hyperthyroidism: no 4. Malnutrition: no 5. Chronic liver disease: no Rheumatoid Arthritis: no Current Tobacco Use: no RISK FACTORS HISTORY OF: Family History of Osteoporosis: no Active: yes Diet low in dairy products/other sources of calcium: at least one serving a day Lost more than 2 inches in height since high school: no Frequent falls: no Poor Health: no Hyperparathyroidism: no Adrenal Insufficiency: no MEDICATIONS: Prednisone or other steroids: not now...stopped about 2 weeks ago How Long: used for about 8 months Thyroid Medications: no Osteoporosis Medications: no Additional Medications: meds for Chrones disease Additional History: immunodeficiency, unspecified EXAM MEASUREMENTS: Bone mineral densitometry was performed using the [employer] System. Bone mineral density as measured about the Lumbar spine is: ----- L1-L4(G/cm2): 1.393 T Score Values are as follows: ----- L2: 1.7 ----- L3: 2.2 ----- L4: 2.2 ----- L1-L4: 1.8 Bone mineral density BASELINE Bone mineral density about the R hip (g/cm2): 0.923 Bone mineral density about the L hip (g/cm2): 0.982 T Score values are as follows: -----R Neck: -0.8 -----L Neck: -0.4 -----R Total: -0.5 -----L Total: -0.4 Bone mineral density BASELINE IMPRESSION: No evidence for osteoporosis or osteopenia. NOTE: T-SCORE=SD OF THE YOUNG ADULT MEAN.
== END | disposition home or self-care (01) ==
LOC: RADBDWWP 09:55
DX: D84.9 Immunodeficiency, unspecified (principal)
CPT/HCPCS: 77080

== ENCOUNTER 2018-10-18 13:20 | Emergency (ER) | payer BC ==
[2018-10-18 13:33] VITALS: TEMP 98.2
[2018-10-18] MEDS ORDERED: HYDROmorphone 1 MG/ML 1 ML SYRINGE IVP STA ×2 (14:12→15:38)
[2018-10-18] MEDS ORDERED: ONDANSETRON 4 MG/2 ML VIAL IVP STA (14:12)
[2018-10-18] MEDS ORDERED: SODIUM CHLORIDE 0.9% 1,000 ML IV STA ×2 (14:12)
[2018-10-18 14:23] LABS: Appearance,Urine Clear (Clear); Bilirubin,Urine Negative (Negative); Blood,Urine Negative (Negative); Color,Urine Yellow; Glucose,Urine (UA) Negative (Negative); Ketones,Urine Negative (Negative); Leukocyte Esterase,Urine Negative (Negative); Nitrite,Urine Negative (Negative); PH, Urine 7.5 (5.0-8.0); Protein,Urine Negative (Negative); Specific Gravity,Urine 1.019 (1.001-1.035); Urobilinogen,Urine <2.0 mg/dL (<2.0)
[2018-10-18 14:30] LABS: Basophils % (A) 0 %; Eosinophils # (A) 0.1 k/uL (0-0.7); Eosinophils % (A) 1 %; HCT 41.4 % (39.0-53.0); Lymphocytes # (A) 0.8 k/uL (1.0-4.8); Lymphocytes % (A) 12 %; MCHC 31.5 g/dL (31.0-37.0); MCV 82.6 fL (80.0-100.0); Mean Platelet Volume 6.9; Monocytes # (A) 0.6 k/uL (0-1.0); Monocytes % (A) 9 %; Neutrophils # (A) 5.4 k/uL (1.3-7.7); Neutrophils % (A) 77 %; Platelet Count 344 k/uL (150-450); RBC 5.01 m/uL (4.30-5.90); RDW 14.1 % (11.5-15.5)
[2018-10-18 14:45] LABS: ALT 13 U/L (21-72); AST 21 U/L (17-59); Albumin 4.1 g/dL (3.5-5.0); Alkaline Phosphatase 95 U/L (38-126); Amylase 45 U/L (30-110); Anion Gap 7 mmol/L; Blood Urea Nitrogen 15 mg/dL (9-20); Calcium 9.8 mg/dL (8.4-10.2); Carbon Dioxide 30 mmol/L (22-30); Chloride 103 mmol/L (98-107); Glucose 81 mg/dL (74-99); Lipase 69 U/L (23-300); Potassium 4.6 mmol/L (3.5-5.1); Sodium 140 mmol/L (137-145); Total Bilirubin 0.6 mg/dL (0.2-1.3); Total Protein 7.4 g/dL (6.3-8.2)
--- NOTE | 2018-10-18 14:48 | ED ---
Abdominal Pain HPI - General Source: patient, RN notes reviewed, old records reviewed Mode of arrival: ambulatory Limitations: no limitations <Aiyana Gould - Last Filed: 10/18/18 15:38> <Kandice Mary - Last Filed: 10/18/18 16:59> - General Chief Complaint: Abdominal Pain Stated Complaint: ABDOMINAL PAIN Time Seen by Provider: 10/18/18 13:44 - History of Present Illness Initial Comments: is a 33-year-old male presents today with left lower quadrant abdominal pain for the past 3 days. Reports it's tender palpation with rebound tenderness. Patient states that he typically has Crohn's flareups with pain on the right side. Patient denies any changes in stools including justin bowel movements or vomiting. He does report some pain with urination. Patient relates that he's noticed no change within the color of his urine. Denies any history of kidney stones. Patient reports the pain seems worse with leg movement. (Aiyana Gould) - Related Data Home Medications Medication Instructions Recorded Confirmed predniSONE 50 mg PO DAILY 09/07/15 10/04/17 Certolizumab Pegol [Cimzia] 400 mg SQ Q14D 10/04/17 10/04/17 Cyanocobalamin [Vitamin B-12] 500 mcg PO DAILY 10/04/17 10/04/17 Previous Rx's Medication Instructions Recorded HYDROcodone/APAP 5-325MG [[place] 1 tab PO Q6HR PRN #10 tab 10/18/18 5-325] predniSONE 20 mg PO BID #10 tab 10/18/18 Allergies Allergy/AdvReac Type Severity Reaction Status Date / Time adalimumab [From Humira] Allergy Anaphylaxis Verified 10/18/18 13:33 azathioprine [From Imuran] Allergy Anaphylaxis Verified 10/18/18 13:33 infliximab [From Remicade] Allergy Anaphylaxis Verified 10/18/18 13:33 venom-honey bee Allergy Anaphylaxis Verified 10/18/18 13:33 Review of Systems ROS Other: All systems not noted in ROS Statement are negative. <Aiyana Gould - Last Filed: 10/18/18 15:38> ROS Other: All systems not noted in ROS Statement are negative. <Kandice Mary - Last Filed: 10/18/18 16:59> ROS Statement: Those systems with pertinent positive or pertinent negative responses have been documented in the HPI. Past Medical History Past Medical History: GI Bleed Additional Past Medical History / Comment(s): CROHNS-having flare up History of Any Multi-Drug Resistant Organisms: None Reported Past Surgical History: Appendectomy, Hernia Repair Additional Past Surgical History / Comment(s): COLONOSCOPIES/. EYE SURG TO CORRECT LAZY EYE Past Anesthesia/Blood Transfusion Reactions: No Reported Reaction Past Psychological History: No Psychological Hx Reported Smoking Status: Never smoker Past Alcohol Use History: Occasional Past Drug Use History: None Reported - Past Family History Mother Family Medical History: No Reported History <Aiyana Gould - Last Filed: 10/18/18 15:38> General Exam Limitations: no limitations General appearance: alert, in no apparent distress Head exam: Present: atraumatic, normocephalic, normal inspection Eye exam: Present: normal appearance, PERRL, EOMI. Absent: scleral icterus, conjunctival injection, periorbital swelling ENT exam: Present: normal exam, mucous membranes moist Neck exam: Present: normal inspection. Absent: tenderness, meningismus, lymphadenopathy Respiratory exam: Present: normal lung sounds bilaterally. Absent: respiratory distress, wheezes, rales, rhonchi, stridor Cardiovascular Exam: Present: regular rate, normal rhythm, normal heart sounds. Absent: systolic murmur, diastolic murmur, rubs, gallop, clicks GI/Abdominal exam: Present: soft, tenderness (Left lower quadrant tenderness.), normal bowel sounds. Absent: distended, guarding, rebound, rigid Extremities exam: Present: normal inspection, full ROM, normal capillary refill. Absent: tenderness, pedal edema, joint swelling, calf tenderness Back exam: Present: normal inspection Neurological exam: Present: alert, oriented X3, CN II-XII intact Psychiatric exam: Present: normal affect, normal mood Skin exam: Present: warm, dry, intact, normal color. Absent: rash <Aiyana Gould - Last Filed: 10/18/18 15:38> - General Exam Comments Initial Comments: 33-year-old male. Alert and oriented 3. No significant distress. (Aiyana Gould) Course Vital Signs 10/18/18 10/18/18 10/18/18 13:31 14:35 15:55 Temperature 98.2 F 98.2 F Pulse Rate 90 82 65 Respiratory 16 18 16 Rate Blood Pressure 123/77 134/82 132/85 O2 Sat by Pulse 98 100 99 Oximetry Medical Decision Making - Lab Data Result diagrams: 10/18/18 13:50 10/18/18 13:50 - Radiology Data Radiology results: report reviewed <Aiyana Gould - Last Filed: 10/18/18 15:38> - Lab Data Result diagrams: 10/18/18 13:50 10/18/18 13:50 <Kandice Mary - Last Filed: 10/18/18 16:59> - Medical Decision Making 33-year-old male presents emergency department today for evaluation with complaints of lower abdominal pain left lower quadrant. Symptoms for 3 days. Patient states that he has history of Crohn's disease falls with Dr. Lau. He is on daily immunosuppressant and prednisone. Patient labwork was reviewed and unremarkable. Normal white blood cell count. Normal urine urinalysis. He states that he does seem to have some pain with urination. CT of abdomen and pelvis was completed. There is evidence of inflammatory changes other sigmoid colon consistent with patient's Crohn's disease. I discussed at this time increasing his steroids to 40 mg daily for Miss 10 mg at this time. We'll discharge the Patient a short course of pain medicine. Discussed that he should follow-up with his primary care doctor as well as his GI doctor. All questions answered return parameters were discussed. (Aiyana Gould) I was available for consultation in the emergency department. The history and physical exam were done by the midlevel provider. I was consulted for this patient's care. I reviewed the case with the midlevel provider and based on their presentation of the patient, I agree with the assessment, medical decision making and plan of care as documented. Chart was dictated using [employer] dictation software. Attempts were made to correct any dictation errors however some typographical errors may persist. (Kandice Mary) - Lab Data Lab Results 10/18/18 10/18/18 10/18/18 Range/Units 13:50 13:50 13:50 WBC 7.0 (3.8-10.6) k/uL RBC 5.01 (4.30-5.90) m/uL Hgb 13.0 (13.0-17.5) gm/dL Hct 41.4 (39.0-53.0) % MCV 82.6 (80.0-100.0) fL MCH 26.0 (25.0-35.0) pg MCHC 31.5 (31.0-37.0) g/dL RDW 14.1 (11.5-15.5) % Plt Count 344 (150-450) k/uL Neutrophils % 77 % Lymphocytes % 12 % Monocytes % 9 % Eosinophils % 1 % Basophils % 0 % Neutrophils # 5.4 (1.3-7.7) k/uL Lymphocytes # 0.8 L (1.0-4.8) k/uL Monocytes # 0.6 (0-1.0) k/uL Eosinophils # 0.1 (0-0.7) k/uL Basophils # 0.0 (0-0.2) k/uL Sodium 140 (137-145) mmol/L Potassium 4.6 (3.5-5.1) mmol/L Chloride 103 (98-107) mmol/L Carbon Dioxide 30 (22-30) mmol/L Anion Gap 7 mmol/L BUN 15 (9-20) mg/dL Creatinine 1.19 (0.66-1.25) mg/dL Est GFR (CKD-EPI)AfAm >90 (>60 ml/min/1.73 sqM) Est GFR (CKD-EPI)NonAf 80 (>60 ml/min/1.73 sqM) Glucose 81 (74-99) mg/dL Calcium 9.8 (8.4-10.2) mg/dL Total Bilirubin 0.6 (0.2-1.3) mg/dL AST 21 (17-59) U/L ALT 13 L (21-72) U/L Alkaline Phosphatase 95 (38-126) U/L Total Protein 7.4 (6.3-8.2) g/dL Albumin 4.1 (3.5-5.0) g/dL Amylase 45 (30-110) U/L Lipase 69 (23-300) U/L Urine Color Yellow Urine Appearance Clear (Clear) Urine pH 7.5 (5.0-8.0) Ur Specific [place] 1.019 (1.001-1.035) Urine Protein Negative (Negative) Urine Glucose (UA) Negative (Negative) Urine Ketones Negative (Negative) Urine Blood Negative (Negative) Urine Nitrite Negative (Negative) Urine Bilirubin Negative (Negative) Urine Urobilinogen <2.0 (<2.0) mg/dL Ur Leukocyte Esterase Negative (Negative) - Radiology Data CT shows abnormal thickening present within the sigmoid colon some pericolonic inflammatory change. Small amount of fluid within the pelvis. Nonspecific colonic wall thickening is somewhat diffuse. Computed tomography scan findings are compatible with patient's history of Crohn's disease. (Aiyana Gould) Disposition Is patient prescribed a controlled substance at d/c from ED?: Yes If prescribed controlled substance>3 days was MAPS reviewed?: Prescribed <3 Days Time of Disposition: 15:43 <Aiyana Gould - Last Filed: 10/18/18 15:38> <Kandice Mary - Last Filed: 10/18/18 16:59> Clinical Impression: Acute Crohn's disease Disposition: HOME SELF-CARE Condition: Good Instructions (If sedation given, give patient instructions): Crohn Disease (ED) Additional Instructions: Patient advised a rest, increase fluids. Follow-up with your GI specialist. Return to the emergency department if any alarming signs or symptoms occur. Prescriptions: HYDROcodone/APAP 5-325MG [[place] 5-325] 1 tab PO Q6HR PRN #10 tab PRN Reason: Pain predniSONE 20 mg PO BID #10 tab Referrals: None,Stated [Primary Care Provider] - 1-2 days Bi Carmona MD [STAFF PHYSICIAN] - 1-2 days
--- NOTE | 2018-10-18 15:16 | CT ---
EXAMINATION TYPE: CT abdomen pelvis w con DATE OF EXAM: 10/18/2018 COMPARISON: CT 10/04/2017 HISTORY: LLQ pain, hx of Crohn's CT DLP: 726.3 mGycm Automated exposure control for dose reduction was used. TECHNIQUE: Helical acquisition of images from the lung bases through the pelvis have been completed. CONTRAST: Performed without Oral Contrast and with IV Contrast, patient injected with 100 mL of Isovue 300. FINDINGS: LUNG BASES: No significant abnormality is appreciated. AORTA: No significant abnormality is appreciated. LIVER/GB: No significant abnormality is appreciated. PANCREAS: No significant abnormality is seen. SPLEEN: No significant abnormality is seen. ADRENALS: No significant abnormality is seen. KIDNEYS: No significant abnormality is seen. REPRODUCTIVE ORGANS: No significant abnormality is seen BOWEL: Abnormal thickening is present within the sigmoid colon with some pericolonic inflammatory ch caitlin. Small amount of fluid is present within the pelvis. Some nonspecific colonic wall thickening is somewhat diffuse. FREE AIR: No Free Air visible. ASCITES: None visible. PELVIC ADENOPATHY: None visualized. RETROPERITONEAL ADENOPATHY: No Retroperitoneal Adenopathy visible. URINARY BLADDER: No significant abnormality is seen. OSSEOUS STRUCTURES: Degenerative disc changes are present in the lower lumbar spine. IMPRESSION: FINDINGS COMPATIBLE WITH PATIENT'S HISTORY OF CROHN'S DISEASE.
[2018-10-18] MEDS ORDERED: methylPREDNISolone SOD SUCCI 125 MG/2 ML VIAL IV STA (15:38)
[2018-10-18 15:57] VITALS: BP 132/85; PULSE 65; RESP 16
== END 2018-10-18 16:15 | disposition home or self-care (01) ==
LOC: EC 13:20
DX: K50.90 Crohn's disease, unspecified, without complications (principal); Z90.89 Acquired absence of other organs; Z79.51 Long term (current) use of inhaled steroids; Z88.8 Allergy status to other drugs, medicaments and biological substances; Z91.030 Bee allergy status
CPT/HCPCS: 36415; 80053; 82150; 83690; 85025; 81003; 74177; 99284; 96374; 96375 ×2; 96376; 96361; J2930; J2405; J1170; Q9967

== ENCOUNTER 2018-11-02 14:56 | Inpatient (IN) | payer BC ==
[2018-11-02] MEDS ORDERED: SODIUM CHLORIDE 0.9% 1,000 ML IV STA (15:50)
[2018-11-02] MEDS ORDERED: HYDROmorphone 0.5 MG/0.5 ML SYRINGE IVP STA ×2 (15:50→19:40)
[2018-11-02] MEDS ORDERED: ONDANSETRON ODT 8 MG TAB.RAPDIS PO STA (15:50)
[2018-11-02] MEDS ORDERED: methylPREDNISolone SOD SUCCI 125 MG/2 ML VIAL IV STA (15:51)
--- NOTE | 2018-11-02 15:53 | ED ---
General Adult HPI - General Chief complaint: Abdominal Pain Stated complaint: Crohns Flare Time Seen by Provider: 11/02/18 15:43 Source: patient, RN notes reviewed, old records reviewed Mode of arrival: wheelchair Limitations: no limitations - History of Present Illness Initial comments: 33-year-old male presented for evaluation of abdominal pain nausea vomiting. Patient has history of Crohn's disease. He is currently on Stalera, and 10 mg prednisone daily. His had decreased stool output, last bowel movement was this morning but this was very small, decreased flatus. He had one episode of vomiting. Pain is predominantly generalized. No fever or chills. - Related Data Home Medications Medication Instructions Recorded Confirmed Ustekinumab [Stelara] 45 mg SQ Q56D 11/02/18 11/02/18 predniSONE 10 mg PO BID 11/02/18 11/02/18 Allergies Allergy/AdvReac Type Severity Reaction Status Date / Time adalimumab [From Humira] Allergy Anaphylaxis Verified 11/02/18 15:32 azathioprine [From Imuran] Allergy Anaphylaxis Verified 11/02/18 15:32 infliximab [From Remicade] Allergy Anaphylaxis Verified 11/02/18 15:32 venom-honey bee Allergy Anaphylaxis Verified 11/02/18 15:32 Review of Systems ROS Statement: Those systems with pertinent positive or pertinent negative responses have been documented in the HPI. ROS Other: All systems not noted in ROS Statement are negative. Past Medical History Past Medical History: GI Bleed Additional Past Medical History / Comment(s): CROHNS History of Any Multi-Drug Resistant Organisms: None Reported Past Surgical History: Appendectomy, Hernia Repair Additional Past Surgical History / Comment(s): COLONOSCOPIES/. EYE SURG TO CORRECT LAZY EYE Past Anesthesia/Blood Transfusion Reactions: No Reported Reaction Past Psychological History: No Psychological Hx Reported Smoking Status: Never smoker Past Alcohol Use History: Occasional Past Drug Use History: None Reported - Past Family History Mother Family Medical History: No Reported History General Exam Limitations: no limitations General appearance: alert Head exam: Present: atraumatic, normocephalic Eye exam: Present: normal appearance, PERRL, EOMI ENT exam: Present: normal exam Neck exam: Present: normal inspection. Absent: tenderness, meningismus Respiratory exam: Present: normal lung sounds bilaterally. Absent: respiratory distress, wheezes Cardiovascular Exam: Present: regular rate, normal rhythm GI/Abdominal exam: Present: soft, distended, tenderness Extremities exam: Present: normal inspection, normal capillary refill. Absent: pedal edema, calf tenderness Neurological exam: Present: alert, oriented X3, CN II-XII intact. Absent: motor sensory deficit Psychiatric exam: Present: normal affect, normal mood Skin exam: Present: warm, dry, intact. Absent: cyanosis, diaphoretic Course Vital Signs 11/02/18 11/02/18 11/02/18 15:29 15:42 16:18 Temperature 98.9 F Pulse Rate 112 H 95 96 Respiratory 18 18 18 Rate Blood Pressure 129/89 143/101 149/96 O2 Sat by Pulse 100 99 97 Oximetry 11/02/18 17:47 Temperature Pulse Rate 95 Respiratory 16 Rate Blood Pressure 143/90 O2 Sat by Pulse 94 L Oximetry Medical Decision Making - Medical Decision Making 33-year-old male history of Crohn's presenting with generalized abdominal pain, and abdominal distention. He's had decreased stool output, decreased flatus, one episode of vomiting. He is well-appearing with stable vitals. He has abdominal distention and generalized tenderness to palpation, no rebound or guarding. X-rays performed, negative for obstruction, patient has normal CBC, normal CMP, is 4+ ketones consistent with dehydration. He has a CT showing distal inflammation in the colon with distal large bowel obstruction and small bowel dilatation. Case is discussed with general surgery, Dr. Andres, recommends NG tube. This is placed in the emergency department. Patient will be admitted to internal medicine with both general surgery and gastroenterology on consult. Placed on IV fluids, antiemetics, pain control, and IV steroids. - Lab Data Result diagrams: 11/02/18 16:00 11/02/18 16:00 Lab Results 11/02/18 11/02/18 11/02/18 Range/Units 16:00 16:00 16:00 WBC 9.2 (3.8-10.6) k/uL RBC 5.39 (4.30-5.90) m/uL Hgb 14.1 (13.0-17.5) gm/dL Hct 44.4 (39.0-53.0) % MCV 82.4 (80.0-100.0) fL MCH 26.1 (25.0-35.0) pg MCHC 31.7 (31.0-37.0) g/dL RDW 13.2 (11.5-15.5) % Plt Count 435 (150-450) k/uL Neutrophils % 78 % Lymphocytes % 7 % Monocytes % 13 % Eosinophils % 0 % Basophils % 0 % Neutrophils # 7.1 (1.3-7.7) k/uL Lymphocytes # 0.6 L (1.0-4.8) k/uL Monocytes # 1.2 H (0-1.0) k/uL Eosinophils # 0.0 (0-0.7) k/uL Basophils # 0.0 (0-0.2) k/uL PT (9.0-12.0) sec INR (<1.2) APTT (22.0-30.0) sec Sodium 140 (137-145) mmol/L Potassium 4.4 (3.5-5.1) mmol/L Chloride 104 (98-107) mmol/L Carbon Dioxide 25 (22-30) mmol/L Anion Gap 11 mmol/L BUN 23 H (9-20) mg/dL Creatinine 1.17 (0.66-1.25) mg/dL Est GFR (CKD-EPI)AfAm >90 (>60 ml/min/1.73 sqM) Est GFR (CKD-EPI)NonAf 81 (>60 ml/min/1.73 sqM) Glucose 82 (74-99) mg/dL Plasma Lactic Acid Reece 0.9 (0.7-2.0) mmol/L Calcium 9.6 (8.4-10.2) mg/dL Total Bilirubin 0.6 (0.2-1.3) mg/dL AST 19 (17-59) U/L ALT 17 L (21-72) U/L Alkaline Phosphatase 89 (38-126) U/L Total Protein 7.5 (6.3-8.2) g/dL Albumin 4.2 (3.5-5.0) g/dL Amylase 49 (30-110) U/L Lipase 64 (23-300) U/L Urine Color Urine Appearance (Clear) Urine pH (5.0-8.0) Ur Specific [place] (1.001-1.035) Urine Protein (Negative) Urine Glucose (UA) (Negative) Urine Ketones (Negative) Urine Blood (Negative) Urine Nitrite (Negative) Urine Bilirubin (Negative) Urine Urobilinogen (<2.0) mg/dL Ur Leukocyte Esterase (Negative) 11/02/18 11/02/18 Range/Units 16:00 16:05 WBC (3.8-10.6) k/uL RBC (4.30-5.90) m/uL Hgb (13.0-17.5) gm/dL Hct (39.0-53.0) % MCV (80.0-100.0) fL MCH (25.0-35.0) pg MCHC (31.0-37.0) g/dL RDW (11.5-15.5) % Plt Count (150-450) k/uL Neutrophils % % Lymphocytes % % Monocytes % % Eosinophils % % Basophils % % Neutrophils # (1.3-7.7) k/uL Lymphocytes # (1.0-4.8) k/uL Monocytes # (0-1.0) k/uL Eosinophils # (0-0.7) k/uL Basophils # (0-0.2) k/uL PT 10.9 (9.0-12.0) sec INR 1.0 (<1.2) APTT 24.5 (22.0-30.0) sec Sodium (137-145) mmol/L Potassium (3.5-5.1) mmol/L Chloride (98-107) mmol/L Carbon Dioxide (22-30) mmol/L Anion Gap mmol/L BUN (9-20) mg/dL Creatinine (0.66-1.25) mg/dL Est GFR (CKD-EPI)AfAm (>60 ml/min/1.73 sqM) Est GFR (CKD-EPI)NonAf (>60 ml/min/1.73 sqM) Glucose (74-99) mg/dL Plasma Lactic Acid Reece (0.7-2.0) mmol/L Calcium (8.4-10.2) mg/dL Total Bilirubin (0.2-1.3) mg/dL AST (17-59) U/L ALT (21-72) U/L Alkaline Phosphatase (38-126) U/L Total Protein (6.3-8.2) g/dL Albumin (3.5-5.0) g/dL Amylase (30-110) U/L Lipase (23-300) U/L Urine Color Yellow Urine Appearance Clear (Clear) Urine pH 5.5 (5.0-8.0) Ur Specific [place] 1.034 (1.001-1.035) Urine Protein Trace H (Negative) Urine Glucose (UA) Negative (Negative) Urine Ketones 4+ H (Negative) Urine Blood Negative (Negative) Urine Nitrite Negative (Negative) Urine Bilirubin 1+ H (Negative) Urine Urobilinogen 2.0 (<2.0) mg/dL Ur Leukocyte Esterase Negative (Negative) Disposition Clinical Impression: Acute Crohn's disease, Small bowel obstruction, Large bowel obstruction Disposition: ADMITTED IP TO [facility] Condition: Stable Is patient prescribed a controlled substance at d/c from ED?: No Referrals: Bi Carmona MD [Primary Care Provider] - 1-2 days Decision to Admit Reason: Admit from EC Decision Date: 11/02/18 Decision Time: 19:05
[2018-11-02 16:12] LABS: Basophils % (A) 0 %; Eosinophils % (A) 0 %; HCT 44.4 % (39.0-53.0); HGB 14.1 gm/dL (13.0-17.5); Lymphocytes # (A) 0.6 k/uL (1.0-4.8); Lymphocytes % (A) 7 %; MCH 26.1 pg (25.0-35.0); MCHC 31.7 g/dL (31.0-37.0); MCV 82.4 fL (80.0-100.0); Mean Platelet Volume 6.8; Monocytes # (A) 1.2 k/uL (0-1.0); Monocytes % (A) 13 %; Neutrophils # (A) 7.1 k/uL (1.3-7.7); Neutrophils % (A) 78 %; Platelet Count 435 k/uL (150-450); RBC 5.39 m/uL (4.30-5.90); RDW 13.2 % (11.5-15.5); WBC 9.2 k/uL (3.8-10.6)
--- NOTE | 2018-11-02 16:18 | XR ---
EXAMINATION TYPE: XR KUB DATE OF EXAM: 11/02/2018 COMPARISON: NONE HISTORY: Constipation TECHNIQUE: 2 views upright FINDINGS: There is intestinal fluid levels in the upper abdomen. There is a relative lack of large matias wel gas. There is possible thumbprinting in the right upper quadrant. The lung bases are clear. I see no sign of free air. There are no pathologic calcifications over the kidneys. IMPRESSION: Fluid level in the right upper quadrant could be the hepatic flexure of the colon with so me thumb printing and mucosal edema. This could relate to colitis. No free air.
[2018-11-02 16:20] LABS: ALT 17 U/L (21-72); AST 19 U/L (17-59); African American GFR (CKD) >90 (>60 ml/min/1.73 sqM); Albumin 4.2 g/dL (3.5-5.0); Alkaline Phosphatase 89 U/L (38-126); Amylase 49 U/L (30-110); Anion Gap 11 mmol/L; Blood Urea Nitrogen 23 mg/dL (9-20); Calcium 9.6 mg/dL (8.4-10.2); Carbon Dioxide 25 mmol/L (22-30); Chloride 104 mmol/L (98-107); Glucose 82 mg/dL (74-99); Lipase 64 U/L (23-300); Potassium 4.4 mmol/L (3.5-5.1); Sodium 140 mmol/L (137-145); Total Bilirubin 0.6 mg/dL (0.2-1.3); Total Protein 7.5 g/dL (6.3-8.2)
[2018-11-02 16:24] LABS: Appearance,Urine Clear (Clear); Bilirubin,Urine 1+ (Negative); Blood,Urine Negative (Negative); Color,Urine Yellow; Glucose,Urine (UA) Negative (Negative); Ketones,Urine 4+ (Negative); Leukocyte Esterase,Urine Negative (Negative); Nitrite,Urine Negative (Negative); PH, Urine 5.5 (5.0-8.0); Protein,Urine Trace (Negative); Specific Gravity,Urine 1.034 (1.001-1.035)
[2018-11-02 16:26] LABS: Partial Thromboplastin Time 24.5 sec (22.0-30.0); Prothrombin Time 10.9 sec (9.0-12.0)
[2018-11-02] MEDS ORDERED: SODIUM CHLORIDE 0.9% 500 ML 500 ML IV ONE (17:01)
[2018-11-02] MEDS: SODIUM CHLORIDE 0.9% 1,000 ML IV SCH (17:45)
--- NOTE | 2018-11-02 18:00 | CT ---
EXAMINATION TYPE: CT abdomen pelvis w con DATE OF EXAM: 11/02/2018 COMPARISON: 10/18/2018 HISTORY: abdominal pain. hx of Crohn's. CT DLP: 755.3 mGycm Automated exposure control for dose reduction was used. TECHNIQUE: Helical acquisition of images was performed from the lung bases through the pelvis. CONTRAST: Performed without Oral Contrast and with IV Contrast, patient injected with 100 mL of Isovue 300. FINDINGS: Lung bases are clear. There is no pleural effusion. Heart size is normal. There is no pericardial eff usion. Liver spleen pancreas gallbladder appear normal. Bile ducts are not dilated. Stomach appears normal. There is no adrenal mass. Kidneys show satisfactory contrast opacification. There is no hydronephrosi s. Ureters are not dilated. There is no retroperitoneal adenopathy. There is small amount of free flu id in the pelvis. Bladder distends smoothly. There is no inguinal hernia. There are mildly dilated multiple loops of fluid and fecal filled large bowel. There is large bowel w all diffuse thickening. There is a segment of proximal sigmoid colon with luminal narrowing. Large matias wel is dilated proximal to the narrowing. There are some surrounding inflammatory changes. There is d ilated fluid-filled distal ileum. Distal ileum is dilated up to 3.5 cm. Lumbar spine is intact. I see no bony destructive process. Bony pelvis is intact. Appendix is not seen. There is no sign of thickened appendix. There is no free air. IMPRESSION: There is evidence of a mechanical distal large bowel obstruction with a stricture of the proximal sig moid colon. There is surrounding inflammatory changes. There is dilation of the large and small bowel . Inflammatory changes appears similar to old CT scan. Obstruction is new compared to old exam. There i s variable areas of wall thickening of the large bowel that is a change compared to old exam and woul d be consistent with inflammatory bowel disease.
[2018-11-02] MEDS ORDERED: NALOXONE 0.4 MG/ML 1 ML VIAL IV PRN (18:30)
[2018-11-02] MEDS ORDERED: ONDANSETRON 4 MG/2 ML VIAL IVP PRN (18:56)
[2018-11-02] MEDS: HYDROmorphone 0.5 MG/0.5 ML SYRINGE IVP PRN (22:59)
[2018-11-03] MEDS: methylPREDNISolone SOD SUCCI 125 MG/2 ML VIAL IV SCH ×3 (00:05→11:16)
[2018-11-03] MEDS: HYDROmorphone 0.5 MG/0.5 ML SYRINGE IVP PRN ×2 (04:01→19:29)
[2018-11-03] MEDS: SODIUM CHLORIDE 0.9% 1,000 ML IV SCH (05:42)
--- NOTE | 2018-11-03 11:55 | P.GSCN ---
History of Present Illness Consult date: 11/03/18 Reason for Consult: CHIEF COMPLAINT: HISTORY OF PRESENT ILLNESS: PAST MEDICAL HISTORY: See list. PAST SURGICAL HISTORY: See list. SOCIAL HISTORY: No illicit drug use. REVIEW OF SYSTEMS: CONSTITUTIONAL: Denies fever or chills. HEENT: Denies blurred vision, vision changes, or eye pain. Denies hemoptysis CARDIOVASCULAR: Denies chest pain or pressure. RESPIRATORY: No shortness of breath. GASTROINTESTINAL: Refer to HPI for pertinent findings HEMATOLOGIC: Denies bleeding disorders. GENITOURINARY: Denies any blood in urine. SKIN: Denies pruitis. Denies rash. PHYSICAL EXAM: VITAL SIGNS: Reviewed. GENERAL: Well-developed in no acute distress. HEENT: No sclera icterus. Extraocular movements grossly intact. Moist buccal mucosa. Head is atraumatic, normocephalic. ABDOMEN: Soft. Nondistended. Nontender. . NEUROLOGIC: Alert and oriented. Cranial nerves II through XII grossly intact. LABORATORY DATA: IMAGING: ASSESSMENT: 1. PLAN: 1. Nurse practitioner note has been reviewed by physician. Signing provider agrees with the documented findings, assessment, and plan of care. Requesting physician: Russ Tavares History of present illness: CHIEF COMPLAINT: Abdominal pain HISTORY OF PRESENT ILLNESS: 33-year-old male with a history of Crohn's disease who presented to the emergency room with a chief complaint of abdominal pain. Patient states he began having abdominal pain over the weekend and noticed he was not passing gas or having bowel movements. He currently denies abdominal pain. NG was placed yesterday. Minimal drainage in canister this morning. He is now passing flatus. Denies BM. PAST MEDICAL HISTORY: See list. PAST SURGICAL HISTORY: See list. SOCIAL HISTORY: No illicit drug use. REVIEW OF SYSTEMS: CONSTITUTIONAL: Denies fever or chills. HEENT: Denies blurred vision, vision changes, or eye pain. Denies hemoptysis CARDIOVASCULAR: Denies chest pain or pressure. RESPIRATORY: No shortness of breath. GASTROINTESTINAL: Refer to HPI for pertinent findings HEMATOLOGIC: Denies bleeding disorders. GENITOURINARY: Denies any blood in urine. SKIN: Denies pruitis. Denies rash. PHYSICAL EXAM: VITAL SIGNS: Reviewed. GENERAL: Well-developed in no acute distress. HEENT: No sclera icterus. Extraocular movements grossly intact. Moist buccal mucosa. Head is atraumatic, normocephalic. ABDOMEN: Soft. Nondistended. Nontender. NEUROLOGIC: Alert and oriented. Cranial nerves II through XII grossly intact. IMAGING: CT abdomen and pelvis: Evidence of mechanical distal large bowel obstruction with a stricture of the proximal sigmoid colon. Surrounding inflammatory changes. Dilation of large and small bowel. ASSESSMENT: 1. Abdominal pain 2. Exacerbation of Crohn's disease 3. Mechanical distal large bowel obstruction with stricture of the proximal sigmoid colon, secondary to above PLAN: Discontinue NG tube Begin clear liquid diet GI on consult. Await further recommendations Nurse practitioner note has been reviewed by physician. Signing provider agrees with the documented findings, assessment, and plan of care. Past Medical History Past Medical History: GI Bleed Additional Past Medical History / Comment(s): CROHNS History of Any Multi-Drug Resistant Organisms: None Reported Past Surgical History: Appendectomy, Hernia Repair Additional Past Surgical History / Comment(s): COLONOSCOPIES/. EYE SURG TO CORRECT LAZY EYE Past Anesthesia/Blood Transfusion Reactions: No Reported Reaction Past Psychological History: No Psychological Hx Reported Smoking Status: Never smoker Past Alcohol Use History: Occasional Past Drug Use History: None Reported - Past Family History Mother Family Medical History: No Reported History Medications and Allergies Home Medications Medication Instructions Recorded Confirmed Type Ustekinumab [Stelara] 45 mg SQ Q56D 11/02/18 11/02/18 History predniSONE 10 mg PO BID 11/02/18 11/02/18 History Allergies Allergy/AdvReac Type Severity Reaction Status Date / Time adalimumab [From Humira] Allergy Anaphylaxis Verified 11/02/18 15:32 azathioprine [From Imuran] Allergy Anaphylaxis Verified 11/02/18 15:32 infliximab [From Remicade] Allergy Anaphylaxis Verified 11/02/18 15:32 venom-honey bee Allergy Anaphylaxis Verified 11/02/18 15:32 Surgical - Exam Vital Signs Temp Pulse Resp BP Pulse Ox 98.9 F 112 H 18 129/89 100 11/02/18 15:29 11/02/18 15:29 11/02/18 15:29 11/02/18 15:29 11/02/18 15:29 Results - Labs 11/02/18 16:00 11/02/18 16:00 Abnormal Lab Results - Last 24 Hours (Table) 06/02/1211/02/18 11/02/18 Range/Units 16:00 16:00 16:05 Lymphocytes # 0.6 L (1.0-4.8) k/uL Monocytes # 1.2 H (0-1.0) k/uL BUN 23 H (9-20) mg/dL ALT 17 L (21-72) U/L Urine Protein Trace H (Negative) Urine Ketones 4+ H (Negative) Urine Bilirubin 1+ H (Negative) Diabetes panel 11/02/18 Range/Units 16:00 Sodium 140 (137-145) mmol/L Potassium 4.4 (3.5-5.1) mmol/L Chloride 104 (98-107) mmol/L Carbon Dioxide 25 (22-30) mmol/L BUN 23 H (9-20) mg/dL Creatinine 1.17 (0.66-1.25) mg/dL Glucose 82 (74-99) mg/dL Calcium 9.6 (8.4-10.2) mg/dL AST 19 (17-59) U/L ALT 17 L (21-72) U/L Alkaline Phosphatase 89 (38-126) U/L Total Protein 7.5 (6.3-8.2) g/dL Albumin 4.2 (3.5-5.0) g/dL Calcium panel 11/02/18 Range/Units 16:00 Calcium 9.6 (8.4-10.2) mg/dL Albumin 4.2 (3.5-5.0) g/dL Pituitary panel 11/02/18 Range/Units 16:00 Sodium 140 (137-145) mmol/L Potassium 4.4 (3.5-5.1) mmol/L Chloride 104 (98-107) mmol/L Carbon Dioxide 25 (22-30) mmol/L BUN 23 H (9-20) mg/dL Creatinine 1.17 (0.66-1.25) mg/dL Glucose 82 (74-99) mg/dL Calcium 9.6 (8.4-10.2) mg/dL Adrenal panel 11/02/18 Range/Units 16:00 Sodium 140 (137-145) mmol/L Potassium 4.4 (3.5-5.1) mmol/L Chloride 104 (98-107) mmol/L Carbon Dioxide 25 (22-30) mmol/L BUN 23 H (9-20) mg/dL Creatinine 1.17 (0.66-1.25) mg/dL Glucose 82 (74-99) mg/dL Calcium 9.6 (8.4-10.2) mg/dL Total Bilirubin 0.6 (0.2-1.3) mg/dL AST 19 (17-59) U/L ALT 17 L (21-72) U/L Alkaline Phosphatase 89 (38-126) U/L Total Protein 7.5 (6.3-8.2) g/dL Albumin 4.2 (3.5-5.0) g/dL
--- NOTE | 2018-11-03 15:13 | P.HPIM ---
History of Present Illness 32-year-old pleasant male came in with the complaints of abdominal pain nausea vomiting his abdominal tenderness in the left lower quadrant burning sensation like his typical Crohn's exacerbation patient was started on systemic steroids patient was throwing up patient had an abdominal CAT scan which showed some mechanical obstruction of the distal large bowel and proximal sigmoid colon. Patient had an NG tube with low intermittent suction symptoms presently improved patient is feeling better patient was started on clear liquid diet advancing as tolerated. Continued on the dose of steroids patient is on immunomodulating therapy for Crohn's disease patient tried Remicade in the past without any significant response. Review of Systems REVIEW OF SYSTEMS: CONSTITUTIONAL: No fever, no malaise, no fatigue. HEENT: No recent visual problems or hearing problems. Denied any sore throat. CARDIOVASCULAR: No chest pain, orthopnea, PND, no palpitations, no syncope. PULMONARY: No shortness of breath, no cough, no hemoptysis. GASTROINTESTINAL: As mentioned in HPI NEUROLOGICAL: No headaches, no weakness, no numbness. HEMATOLOGICAL: Denies any bleeding or petechiae. GENITOURINARY: Denies any burning micturition, frequency, or urgency. MUSCULOSKELETAL/RHEUMATOLOGICAL: Denies any joint pain, swelling, or any muscle pain. ENDOCRINE: Denies any polyuria or polydipsia. The rest of the 14-point review of systems is negative. Past Medical History Past Medical History: GI Bleed Additional Past Medical History / Comment(s): CROHNS History of Any Multi-Drug Resistant Organisms: None Reported Past Surgical History: Appendectomy, Hernia Repair Additional Past Surgical History / Comment(s): COLONOSCOPIES/. EYE SURG TO CORRECT LAZY EYE Past Anesthesia/Blood Transfusion Reactions: No Reported Reaction Past Psychological History: No Psychological Hx Reported Smoking Status: Never smoker Past Alcohol Use History: Occasional Past Drug Use History: None Reported - Past Family History Mother Family Medical History: No Reported History Medications and Allergies Home Medications Medication Instructions Recorded Confirmed Type Ustekinumab [Stelara] 45 mg SQ Q56D 11/02/18 11/02/18 History predniSONE 10 mg PO BID 11/02/18 11/02/18 History Allergies Allergy/AdvReac Type Severity Reaction Status Date / Time adalimumab [From Humira] Allergy Anaphylaxis Verified 11/02/18 15:32 azathioprine [From Imuran] Allergy Anaphylaxis Verified 06/09/19 15:32 infliximab [From Remicade] Allergy Anaphylaxis Verified 11/02/18 15:32 venom-honey bee Allergy Anaphylaxis Verified 11/02/18 15:32 Physical Exam Vitals: Vital Signs Temp Pulse Pulse Resp BP BP BP 11/03/18 13:08 97.9 F 85 16 138/77 11/03/18 08:46 18 11/03/18 05:18 97.6 F 87 18 136/72 11/03/18 00:00 90 20 11/02/18 21:30 98.9 F 90 20 144/78 11/02/18 20:23 98 F 97 16 131/81 11/02/18 20:05 98 F 97 16 131/81 11/02/18 17:47 95 16 143/90 11/02/18 16:18 96 18 149/96 11/02/18 15:42 95 18 143/101 11/02/18 15:29 98.9 F 112 H 18 129/89 Pulse Ox 11/03/18 13:08 95 11/03/18 08:46 11/03/18 05:18 94 L 11/03/18 00:00 11/02/18 21:30 95 11/02/18 20:23 95 11/02/18 20:05 95 11/02/18 17:47 94 L 11/02/18 16:18 97 11/02/18 15:42 99 11/02/18 15:29 100 Intake and Output 11/03/18 11/03/18 11/03/18 06:59 14:59 22:59 Intake Total 0 740 Balance 0 740 Intake: Oral 0 740 Other: Voiding Method Toilet Toilet Urinal Urinal # Voids 1 1 # Bowel Movements 0 0 PHYSICAL EXAMINATION: GENERAL: The patient is alert and oriented x3, not in any acute distress. Well developed, well nourished. HEENT: Pupils are round and equally reacting to light. EOMI. No scleral icterus. No conjunctival pallor. Normocephalic, atraumatic. No pharyngeal erythema. No thyromegaly. CARDIOVASCULAR: S1 and S2 present. No murmurs, rubs, or gallops. PULMONARY: Chest is clear to auscultation, no wheezing or crackles. ABDOMEN: Soft, nontender, nondistended, normoactive bowel sounds. No palpable organomegaly. MUSCULOSKELETAL: No joint swelling or deformity. EXTREMITIES: No cyanosis, clubbing, or pedal edema. NEUROLOGICAL: Gross neurological examination did not reveal any focal deficits. SKIN: No rashes. Results CBC & Chem 7: 11/02/18 16:00 11/02/18 16:00 Labs: Abnormal Lab Results - Last 24 Hours (Table) 11/02/18 11/02/18 11/02/18 Range/Units 16:00 16:00 16:05 Lymphocytes # 0.6 L (1.0-4.8) k/uL Monocytes # 1.2 H (0-1.0) k/uL BUN 23 H (9-20) mg/dL ALT 17 L (21-72) U/L Urine Protein Trace H (Negative) Urine Ketones 4+ H (Negative) Urine Bilirubin 1+ H (Negative) Assessment and Plan Plan: -possible partial small bowel obstruction resolved patient was started on diet NG tube was removed. -Possibly of Crohn's exacerbation patient will be can you done IV steroids but will decrease the dosing and gastroneurology will evaluated the patient Patient's diet will be advanced. He is able to tolerate it possibility of discharge tomorrow
[2018-11-03] MEDS: methylPREDNISolone SOD SUCCI 40 MG/ML 1 ML VIAL IV SCH (18:16)
--- NOTE | 2018-11-03 18:24 | P.CONS ---
History of Present Illness - Reason for Consult Consult date: 11/03/18 Crohn's disease Requesting physician: Robbie Rogers - Chief Complaint Abdominal pain, nausea, vomiting - History of Present Illness 33-year-old male with a known history of Crohn's disease of the small and large bowel who presented to the hospital with complaints of abdominal pain, nausea and vomiting. The patient reports abdominal pain described as constant in the left lower quadrant of his abdomen and typical for her prior exacerbations of his Crohn's disease. He also reported associated nausea and vomiting with his symptoms and decrease bowel movements. The patient has an approximately 10 year history of stricturing Crohn's disease of the small and large bowel. He has been on biologic therapy as well as immunomodulators therapy in the past previously being on Remicade, Humira and Imuran all of which were stopped due to adverse reactions. Currently the patient is on Stelara as well as a steroid taper for which he is taking 10 mg of prednisone daily. His last colonoscopy was in 06/14/2017 which was significant for stricturing Crohn's disease of the sigmoid colon an active disease found in the sigmoid and small bowel. Computed tomography scan on presentation was significant for evidence of a mechanical obstruction at the distal large bowel in the area of the sigmoid with proximal dilation. Laboratory evaluation on presentation was significant for a WBC 9.2, hemoglobin 14.1, platelet count 435,000, INR 1, total bilirubin 0.6, alkaline ph osphatase 89, AST 19 and ALT 17. Currently the patient is seen lying in bed reporting that he is feeling somewhat better. He is currently passing flatus but still has not had a bowel movement. He has tolerated a liquid diet. Review of Systems REVIEW OF SYSTEMS: CONSTITUTIONAL: Denies any fevers, chills, weight change or fatigue. CARDIOVASCULAR: Denies any chest pain, palpitations high or low blood pressures RESPIRATORY: Denies any shortness of breath, hemoptysis or cough. GENITOURINARY: No dysuria or hematuria. MUSCULOSKELETAL: No weakness reported. SKIN: Denies any new rashes or lesions, jaundice or pallor. PSYCHIATRIC: Denies any depression or anxiety. NEUROLOGY: Denies headache, denies any new focal deficits. EARS/NOSE/THROAT: No recent hearing change, congestion, nasal discharge or sore throat. EYES: No pain in eyes, discharge or change in vision. GASTROINTESTINAL: As per HPI. Past Medical History Past Medical History: GI Bleed Additional Past Medical History / Comment(s): CROHNS History of Any Multi-Drug Resistant Organisms: None Reported Past Surgical History: Appendectomy, Hernia Repair Additional Past Surgical History / Comment(s): COLONOSCOPIES/. EYE SURG TO CORRECT LAZY EYE Past Anesthesia/Blood Transfusion Reactions: No Reported Reaction Past Psychological History: No Psychological Hx Reported Smoking Status: Never smoker Past Alcohol Use History: Occasional Past Drug Use History: None Reported Additional History: Family history: Reviewed with the patient and noncontributory to current medical presentation. - Past Family History Mother Family Medical History: No Reported History Medications and Allergies Home Medications Medication Instructions Recorded Confirmed Type Ustekinumab [Stelara] 45 mg SQ Q56D 11/02/18 11/02/18 History predniSONE 10 mg PO BID 11/02/18 11/02/18 History Allergies Allergy/AdvReac Type Severity Reaction Status Date / Time adalimumab [From Humira] Allergy Anaphylaxis Verified 11/02/18 15:32 azathioprine [From Imuran] Allergy Anaphylaxis Verified 11/02/18 15:32 infliximab [From Remicade] Allergy Anaphylaxis Verified 11/02/18 15:32 venom-honey bee Allergy Anaphylaxis Verified 11/02/18 15:32 Physical Exam Vitals: Vital Signs Temp Pulse Pulse Resp BP BP BP 11/03/18 08:46 18 11/03/18 05:18 97.6 F 87 18 136/72 11/03/18 00:00 90 20 11/02/18 21:30 98.9 F 90 20 144/78 11/02/18 20:23 98 F 97 16 131/81 11/02/18 20:05 98 F 97 16 131/81 11/02/18 17:47 95 16 143/90 11/02/18 16:18 96 18 149/96 11/02/18 15:42 95 18 143/101 11/02/18 15:29 98.9 F 112 H 18 129/89 Pulse Ox 11/03/18 08:46 11/03/18 05:18 94 L 11/03/18 00:00 11/02/18 21:30 95 11/02/18 20:23 95 11/02/18 20:05 95 11/02/18 17:47 94 L 11/02/18 16:18 97 11/02/18 15:42 99 11/02/18 15:29 100 Intake and Output 11/02/18 11/03/18 11/03/18 22:59 06:59 14:59 Intake Total 0 0 Balance 0 0 Intake: Oral 0 0 Other: Voiding Method Toilet Toilet Urinal Urinal # Voids 1 1 # Bowel Movements 0 0 Weight 83.915 kg On physical examination, patient appears comfortable in no apparent distress. HEAD: Normocephalic, atraumatic. EYES: No scleral icterus. No conjunctival injection. MOUTH: No lesions, tongue midline. NECK: Trachea midline, no gross abnormalities. CHEST: Clear to auscultation with no wheezing or rhonchi appreciated. HEART: Regular rate and rhythm. ABDOMEN: Soft, tender to palpation worse in left lower quadrant. Bowel sounds are positive. No organomegaly. No guarding or rigidity. EXTREMITIES: No pedal edema. SKIN: No rashes, no jaundice. NEUROLOGIC: Alert and oriented x3. No focal deficits. Results CBC & Chem 7: 11/02/18 16:00 11/02/18 16:00 Labs: Abnormal Lab Results - Last 24 Hours (Table) 11/02/18 11/02/18 11/02/18 Range/Units 16:00 16:00 16:05 Lymphocytes # 0.6 L (1.0-4.8) k/uL Monocytes # 1.2 H (0-1.0) k/uL BUN 23 H (9-20) mg/dL ALT 17 L (21-72) U/L Urine Protein Trace H (Negative) Urine Ketones 4+ H (Negative) Urine Bilirubin 1+ H (Negative) CT scan - abdomen: report reviewed (Computed tomography scan of the abdomen with findings of mechanical obstruction in the distal large bowel in the area of the sigmoid colon with dilation proximal to that portion of the colon.) Assessment and Plan (1) Acute Crohn's disease Narrative/Plan: 33-year-old with a known history of Crohn's disease of the small enlarged bowel for approximately 10 years treated with biologic therapy with Stelara, who presented with abdominal pain, nausea and vomiting and decreased bowel movements and CT findings suggestive of obstruction. His he has been on a steroid taper at home in addition to his biologic therapy with prednisone 10 mg daily prior to presentation. Currently he is reporting symptomatic improvement with flatus reported and tolerating diet. Current Visit: Yes Status: Acute Code(s): K50.90 - CROHN'S DISEASE, UNSPECIFIED, WITHOUT COMPLICATIONS SNOMED Code(s): 63359141 (2) Large bowel obstruction Current Visit: Yes Status: Acute Code(s): K56.609 - UNSP INTESTNL OBST, UNSP TO PARTIAL VERSUS COMPLETE OBST SNOMED Code(s): 839987341 Plan: Port of care Clear liquid diet Continue Solu-Medrol 20 mg every 8 hours Patient will need to continue still are therapy Appreciate surgical recommendations Continue conservative management of bowel obstruction Given chronicity of patient's symptoms and persistence of stricture patient would benefit from continued discussion with surgery about possible stricturoplasty or resection if conservative management fails Close follow-up with managing cylinder grinder Dr. Carmona after discharge ESR, CRP and fecal calprotectin ordered Thank you for allowing us to participate in the care of the patient we will continue to follow
[2018-11-03] MEDS ORDERED: methylPREDNISolone SOD SUCCI 40 MG/ML 1 ML VIAL IV SCH (21:00)
[2018-11-04] MEDS: methylPREDNISolone SOD SUCCI 40 MG/ML 1 ML VIAL IV SCH ×4 (00:25→23:50)
[2018-11-04] MEDS: SODIUM CHLORIDE 0.9% 1,000 ML IV SCH ×3 (00:32→23:51)
[2018-11-04] MEDS: HYDROmorphone 0.5 MG/0.5 ML SYRINGE IVP PRN (09:10)
[2018-11-04 11:24] LABS: Basophils % (A) 0 %; Eosinophils % (A) 0 %; HGB 11.9 gm/dL (13.0-17.5); Lymphocytes # (A) 0.5 k/uL (1.0-4.8); Lymphocytes % (A) 5 %; MCH 25.9 pg (25.0-35.0); MCHC 31.2 g/dL (31.0-37.0); MCV 82.9 fL (80.0-100.0); Mean Platelet Volume 7.2; Monocytes # (A) 0.7 k/uL (0-1.0); Monocytes % (A) 8 %; Neutrophils # (A) 7.6 k/uL (1.3-7.7); Neutrophils % (A) 86 %; Platelet Count 410 k/uL (150-450); RBC 4.58 m/uL (4.30-5.90); RDW 13.8 % (11.5-15.5); WBC 8.8 k/uL (3.8-10.6)
[2018-11-04 11:47] LABS: ALT 8 U/L (21-72); AST 11 U/L (17-59); African American GFR (CKD) >90 (>60 ml/min/1.73 sqM); Albumin 3.2 g/dL (3.5-5.0); Alkaline Phosphatase 62 U/L (38-126); Anion Gap 7 mmol/L; Blood Urea Nitrogen 22 mg/dL (9-20); C Reactive Protein 31.9 mg/L (<10.0); Calcium 8.8 mg/dL (8.4-10.2); Carbon Dioxide 28 mmol/L (22-30); Chloride 104 mmol/L (98-107); Glucose 118 mg/dL (74-99); Potassium 4.8 mmol/L (3.5-5.1); Sodium 139 mmol/L (137-145); Total Bilirubin 0.2 mg/dL (0.2-1.3)
--- NOTE | 2018-11-04 12:27 | P.PN ---
Subjective Progress Note Date: 11/04/18 CHIEF COMPLAINT: Abdominal pain HISTORY OF PRESENT ILLNESS: Patient examined at the bedside today. Patient is passing flatus. He reports having a bowel movement this morning but states it was difficult to pass. He reports mild tenderness. Denies nausea or vomiting. Tolerating liquid diet. PHYSICAL EXAM: VITAL SIGNS: Reviewed. GENERAL: Well-developed in no acute distress. HEENT: No sclera icterus. Extraocular movements grossly intact. Moist buccal mucosa. Head is atraumatic, normocephalic. ABDOMEN: Soft. Nondistended. Mild tenderness. NEUROLOGIC: Alert and oriented. Cranial nerves II through XII grossly intact. ASSESSMENT: 1. Abdominal pain 2. Exacerbation of Crohn's disease 3. Mechanical distal large bowel obstruction with stricture of the proximal sigmoid colon, secondary to above PLAN: Continue full liquid diet Pain control Supportive care Patient may follow up with Dr. Andres outpatient to continue discussions regarding surgical intervention Nurse practitioner note has been reviewed by physician. Signing provider agrees with the documented findings, assessment, and plan of care. Objective - Vital Signs Vital signs: Vital Signs Temp 97.9 F 11/04/18 05:15 Pulse 78 11/04/18 05:15 Resp 18 11/04/18 05:15 BP 115/70 11/04/18 05:15 Pulse Ox 95 11/04/18 05:15 Intake & Output 11/03/18 11/04/18 11/04/18 18:59 06:59 18:59 Intake Total 1280 400 Balance 1280 400 Intake: Oral 1280 400 Other: Voiding Method Toilet Toilet Urinal Urinal # Voids 1 1 # Bowel Movements 0 0 - Labs CBC & Chem 7: 11/04/18 10:39 11/04/18 10:39 Labs: Abnormal Lab Results - Last 24 Hours (Table) 11/04/18 11/04/18 Range/Units 10:39 10:39 Hgb 11.9 L (13.0-17.5) gm/dL Hct 38.0 L (39.0-53.0) % Lymphocytes # 0.5 L (1.0-4.8) k/uL BUN 22 H (9-20) mg/dL Glucose 118 H (74-99) mg/dL AST 11 L (17-59) U/L ALT 8 L (21-72) U/L C-Reactive Protein 31.9 H (<10.0) mg/L Total Protein 6.0 L (6.3-8.2) g/dL Albumin 3.2 L (3.5-5.0) g/dL
--- NOTE | 2018-11-04 13:09 | P.PN ---
Subjective Progress Note Date: 11/04/18 Principal diagnosis: Abdominal pain Crohn's exacerbation bowel obstruction Reports increased left lower quadrant abdominal pain passing flatus difficulty passing bowel movements. Afebrile. Patient states possible surgical intervention soon. White count 8.8. Hemoglobin 11.9. CRP 31.9. Objective - Vital Signs Vital signs: Vital Signs Temp 97.9 F 11/04/18 05:15 Pulse 78 11/04/18 05:15 Resp 18 11/04/18 05:15 BP 115/70 11/04/18 05:15 Pulse Ox 95 11/04/18 05:15 Intake & Output 11/03/18 11/04/18 11/04/18 18:59 06:59 18:59 Intake Total 1280 400 Balance 1280 400 Intake: Oral 1280 400 Other: Voiding Method Toilet Toilet Urinal Urinal # Voids 1 1 # Bowel Movements 0 0 - Exam General appearance: The patient is alert, oriented, in no acute distress. HET: Head is normocephalic and atraumatic. Pupils are equal and reactive. Oropharynx is clear without lesions. Neck: Supple without lymphadenopathy. Trachea midline. Heart: S1 S2. Regular rate and rhythm. Lungs: No crackles or wheezes are heard. Abdomen: Soft, tenderness left lower quadrant, nondistended with bowel sounds. No peritoneal signs. No palpable organomegaly or masses. Extremities: Normal skin color and turgor. No cyanosis, rash, ulceration, clubbing, or edema. Radial and pedal pulses are 2/4 bilaterally. Neurological: No focal deficits. Strength and sensation are grossly intact. - Labs CBC & Chem 7: 11/04/18 10:39 11/04/18 10:39 Labs: Abnormal Lab Results - Last 24 Hours (Table) 11/04/18 11/04/18 Range/Units 10:39 10:39 Hgb 11.9 L (13.0-17.5) gm/dL Hct 38.0 L (39.0-53.0) % Lymphocytes # 0.5 L (1.0-4.8) k/uL BUN 22 H (9-20) mg/dL Glucose 118 H (74-99) mg/dL AST 11 L (17-59) U/L ALT 8 L (21-72) U/L C-Reactive Protein 31.9 H (<10.0) mg/L Total Protein 6.0 L (6.3-8.2) g/dL Albumin 3.2 L (3.5-5.0) g/dL Assessment and Plan (1) Acute Crohn's disease Current Visit: Yes Status: Acute Code(s): K50.90 - CROHN'S DISEASE, UNSPECIFIED, WITHOUT COMPLICATIONS SNOMED Code(s): 42081554 (2) Large bowel obstruction Current Visit: Yes Status: Acute Code(s): K56.609 - UNSP INTESTNL OBST, UNSP TO PARTIAL VERSUS COMPLETE OBST SNOMED Code(s): 345937023 Plan: 1. General surgery following closely possible surgical intervention we'll defer to their service for further recommendations. Continue present medical therapy. We'll continue to follow. Assessment and plan a care discussed with Dr. Cha
[2018-11-04] MEDS: HYDROcodone/APAP 5-325MG 1 EACH TAB PO PRN ×2 (13:22→19:41)
[2018-11-04 13:50] LABS: Erythrocyte Sedimentation Rate 19 mm/hr (0-15)
--- NOTE | 2018-11-04 14:43 | P.PN ---
Subjective 33-year-old male was admitted for abdominal pain in the left lower quadrant and days appears to be mechanical obstruction in the rectosigmoid area may be related to adhesions. Patient clinically improved. He still continued to have some pain in general surgery recommending laparotomy for him. Gastroenterology evaluated the patient as well and wheezing continued on IV steroids at this time. Constitutional: Denied any fatigue denied any fever. Cardio vascular: denied any chest pain, palpitations Gastrointestinal denied any nausea vomiting Pulmonary: Denied any shortness of breath cough Neurologic denied any new focal deficits All inpatient medications were reviewed and appropriate changes in these medications as dictated in the interval history and assessment and plan. Objective - Vital Signs Vital signs: Vital Signs Temp 97.5 F L 11/04/18 13:55 Pulse 70 11/04/18 13:55 Resp 16 11/04/18 13:55 BP 138/82 11/04/18 13:55 Pulse Ox 95 11/04/18 13:55 Intake & Output 11/03/18 11/04/18 11/04/18 18:59 06:59 18:59 Intake Total 1280 400 540 Balance 1280 400 540 Intake: Oral 1280 400 540 Other: Voiding Method Toilet Toilet Urinal Urinal # Voids 1 1 2 # Bowel Movements 0 0 - Exam PHYSICAL EXAMINATION: GENERAL: The patient is alert and oriented x3, not in any acute distress. Well developed, well nourished. HEENT: Pupils are round and equally reacting to light. EOMI. No scleral icterus. No conjunctival pallor. Normocephalic, atraumatic. No pharyngeal erythema. No thyromegaly. CARDIOVASCULAR: S1 and S2 present. No murmurs, rubs, or gallops. PULMONARY: Chest is clear to auscultation, no wheezing or crackles. ABDOMEN: Soft, nontender, nondistended, normoactive bowel sounds. No palpable organomegaly. MUSCULOSKELETAL: No joint swelling or deformity. EXTREMITIES: No cyanosis, clubbing, or pedal edema. NEUROLOGICAL: Gross neurological examination did not reveal any focal deficits. SKIN: No rashes. - Labs CBC & Chem 7: 11/04/18 10:39 11/04/18 10:39 Labs: Abnormal Lab Results - Last 24 Hours (Table) 11/04/18 11/04/18 Range/Units 10:39 10:39 Hgb 11.9 L (13.0-17.5) gm/dL Hct 38.0 L (39.0-53.0) % Lymphocytes # 0.5 L (1.0-4.8) k/uL ESR 19 H (0-15) mm/hr BUN 22 H (9-20) mg/dL Glucose 118 H (74-99) mg/dL AST 11 L (17-59) U/L ALT 8 L (21-72) U/L C-Reactive Protein 31.9 H (<10.0) mg/L Total Protein 6.0 L (6.3-8.2) g/dL Albumin 3.2 L (3.5-5.0) g/dL Assessment and Plan Plan: -possible partial small bowel obstruction improved now that appears to be mechanical obstruction of rectosigmoid area because of which general surgery is recommending laparotomy and possible additional lysis -Possibly of Crohn's exacerbation she will be continued on IV steroids -Anxiety
[2018-11-05] MEDS: HYDROcodone/APAP 5-325MG 1 EACH TAB PO PRN (06:01)
[2018-11-05 06:36] VITALS: BP 128/79; PULSE 53; RESP 15; TEMP 98
[2018-11-05] MEDS: methylPREDNISolone SOD SUCCI 40 MG/ML 1 ML VIAL IV SCH (08:00)
[2018-11-05] MEDS: SODIUM CHLORIDE 0.9% 1,000 ML IV SCH (12:19)
--- NOTE | 2018-11-05 13:02 | P.PN ---
Progress Note - Text Progress Note Date: 11/05/18 The patient is doing better. He has no plans of pain. On exam his vital signs are stable. His abdomen is soft. Patiently discharged home. We will plan for outpatient surgical intervention for his colon stricture.
--- NOTE | 2018-11-05 15:46 | P.DS ---
Providers Date of admission: 11/02/18 19:02 Attending physician: Robbie Rogers Consults: 11/02/18 18:31 Consult Physician Urgent Consulting Provider: Roshan Andres Consult Reason/Comments: Bowel obstruction Do you want consulting provider notified?: Already Contacted [facility] Course: 33-year-old male was admitted for abdominal pain in the left lower quadrant and days appears to be mechanical obstruction in the rectosigmoid area may be related to adhesions. Patient clinically improved. He still continued to have some pain in general surgery recommending laparotomy for him. Gastroenterology evaluated the patient as well and continued on IV steroids at this time. 11/05/2018 patient is clinically doing well until surgery is not planning on any surgical intervention at this point of time patient will follow general surgery as an outpatient after which patient will undergo colonoscopy dictation regarding surgery and additional lysis or colectomy as an outpatient. Patient will be discharged today and weaning dose of steroids PHYSICAL EXAMINATION: GENERAL: The patient is alert and oriented x3, not in any acute distress. Well developed, well nourished. HEENT: Pupils are round and equally reacting to light. EOMI. No scleral icterus. No conjunctival pallor. Normocephalic, atraumatic. No pharyngeal erythema. No t hyromegaly. CARDIOVASCULAR: S1 and S2 present. No murmurs, rubs, or gallops. PULMONARY: Chest is clear to auscultation, no wheezing or crackles. ABDOMEN: Soft, nontender, nondistended, normoactive bowel sounds. No palpable organomegaly. MUSCULOSKELETAL: No joint swelling or deformity. EXTREMITIES: No cyanosis, clubbing, or pedal edema. NEUROLOGICAL: Gross neurological examination did not reveal any focal deficits. SKIN: No rashes. Assessment and Plan Plan: -possible partial small bowel obstruction improved now that appears to be mechanical obstruction of rectosigmoid area because of which general surgery all as an outpatient will decide on laparotomy as mentioned above as an outpatient colonoscopy -Possibly of Crohn's exacerbation she will be continued on oral steroids -Anxiety Patient Condition at Discharge: Stable Plan - Discharge Summary New Discharge Prescriptions: New predniSONE 10 mg PO DIRECTED #123 tab No Action predniSONE 10 mg PO BID Ustekinumab [Stelara] 45 mg SQ Q56D Discharge Medication List Ustekinumab [Stelara] 45 mg SQ Q56D 11/02/18 [History] predniSONE 10 mg PO BID 11/02/18 [History] predniSONE 10 mg PO DIRECTED #123 tab 11/05/18 [Rx] Follow up Appointment(s)/Referral(s): Bi Carmona MD [Primary Care Provider] - 11/10/18 5:30 pm Roshan Andres MD [STAFF PHYSICIAN] - 11/06/18 2:45 pm Patient Instructions/Handouts: Bowel Obstruction (DC) Activity/Diet/Wound Care/Special Instructions: Prednisone 40 mg daily on discharge and taper down by 5 mg every 7 days; prescription provided Discharge Disposition: HOME SELF-CARE
== END 2018-11-05 12:58 | disposition home or self-care (01) | DRG 387 ==
LOC: EC 14:56 → 4MS4W 19:02
PROVIDERS: ADMIT Internal Medicine; ATTEND Internal Medicine
DX: K50.90 Crohn's disease, unspecified, without complications (principal); F41.9 Anxiety disorder, unspecified; Z79.52 Long term (current) use of systemic steroids; Z79.899 Other long term (current) drug therapy; Z88.8 Allergy status to other drugs, medicaments and biological substances; Z91.030 Bee allergy status
CPT/HCPCS: 36415; 74018; 74177; 80053; 81003; 82150; 83605; 83690; 83993; 85025; 85610; 85652; 85730; 86140; 96361; 96374; 96375; 96376; 99285

== ENCOUNTER → 2018-11-06 | Outpatient (CLI) | payer BC ==
[2018-11-06 16:11] LABS: HCT 46.1 % (39.0-53.0); HGB 14.7 gm/dL (13.0-17.5); MCH 26.7 pg (25.0-35.0); MCHC 31.9 g/dL (31.0-37.0); MCV 83.5 fL (80.0-100.0); Mean Platelet Volume 6.7; Platelet Count 461 k/uL (150-450); RBC 5.53 m/uL (4.30-5.90); RDW 13.1 % (11.5-15.5); WBC 9.6 k/uL (3.8-10.6)
[2018-11-06 16:17] LABS: Potassium 4.6 mmol/L (3.5-5.1)
== END | disposition home or self-care (01) ==
LOC: LABPAT 15:33
DX: Z01.810 Encounter for preprocedural cardiovascular examination (principal); Z01.812 Encounter for preprocedural laboratory examination
CPT/HCPCS: 80051; 85027

== ENCOUNTER 2018-11-09 06:54 | Inpatient (IN) | payer BC ==
[2018-11-09] MEDS ORDERED: ONDANSETRON 4 MG/2 ML VIAL IVP STA ×2 (07:03→07:24)
[2018-11-09] MEDS ORDERED: SODIUM CHLORIDE 0.9% 2,000 ML IV STA (07:03)
[2018-11-09] MEDS ORDERED: HYDROmorphone 1 MG/ML 1 ML SYRINGE IVP STA (07:24)
--- NOTE | 2018-11-09 07:49 | ED ---
Abdominal Pain HPI <VladimirRuss - Last Filed: 11/09/18 08:30> - General Source: patient, RN notes reviewed, old records reviewed Mode of arrival: ambulatory Limitations: no limitations <Navin Garcia - Last Filed: 11/09/18 08:36> - General Chief Complaint: Abdominal Pain Stated Complaint: Abdominal Pain Time Seen by Provider: 11/09/18 07:02 - History of Present Illness Initial Comments: This is a 33-year-old male presents emergency Department chief complaint of abdominal pain. Patient had a recent hospitalization for Crohn's exacerbation with mechanical: Obstruction. Patient is a was discharged and he was scheduled in a few weeks for colon resection. Patient states his surgeon is Dr. guo. Patient is currently on prednisone. Patient states he has not had a bowel movement a few days and states he has not been able to pass any gas. Patient states his abdomen is distended, painful and his been nauseated. No current vomiting denies fever or chills. Patient does see GI. Patient denies any dysuria or hematuria (Navin Garcia) - Related Data Home Medications Medication Instructions Recorded Confirmed Ustekinumab [Stelara] 45 mg SQ Q56D 11/02/18 11/09/18 predniSONE 20 mg PO DAILY PRN 11/09/18 11/09/18 Allergies Allergy/AdvReac Type Severity Reaction Status Date / Time adalimumab [From Humira] Allergy Anaphylaxis Verified 11/09/18 07:36 azathioprine [From Imuran] Allergy Anaphylaxis Verified 11/09/18 07:36 infliximab [From Remicade] Allergy Anaphylaxis Verified 11/09/18 07:36 venom-honey bee Allergy Anaphylaxis Verified 11/09/18 07:36 Review of Systems ROS Other: All systems not noted in ROS Statement are negative. <Russ Gilbert - Last Filed: 11/09/18 08:30> ROS Other: All systems not noted in ROS Statement are negative. <Navin Garcia - Last Filed: 11/09/18 08:36> ROS Statement: Those systems with pertinent positive or pertinent negative responses have been documented in the HPI. Past Medical History Past Medical History: GI Bleed Additional Past Medical History / Comment(s): CROHNS, History of Any Multi-Drug Resistant Organisms: None Reported Past Surgical History: Appendectomy, Hernia Repair Additional Past Surgical History / Comment(s): COLONOSCOPIES/. EYE SURG TO CORRECT LAZY EYE, Past Anesthesia/Blood Transfusion Reactions: No Reported Reaction Past Psychological History: No Psychological Hx Reported Smoking Status: Never smoker Past Alcohol Use History: Occasional Past Drug Use History: None Reported - Past Family History Mother Family Medical History: No Reported History <Navin Garcia - Last Filed: 11/09/18 08:36> General Exam Limitations: no limitations General appearance: alert, in no apparent distress Head exam: Present: atraumatic, normocephalic, normal inspection Eye exam: Present: normal appearance, PERRL, EOMI. Absent: scleral icterus, c onjunctival injection, periorbital swelling Respiratory exam: Present: normal lung sounds bilaterally. Absent: respiratory distress, wheezes, rales, rhonchi, stridor Cardiovascular Exam: Present: normal rhythm, tachycardia, normal heart sounds. Absent: systolic murmur, diastolic murmur, rubs, gallop, clicks GI/Abdominal exam: Present: soft, distended, tenderness, rigid, normal bowel sounds. Absent: guarding, rebound Back exam: Absent: CVA tenderness (R), CVA tenderness (L) Neurological exam: Present: alert, oriented X3, CN II-XII intact Skin exam: Present: warm, dry, intact, normal color. Absent: rash <Navin Garcia - Last Filed: 11/09/18 08:36> Course <Russ Gilbert - Last Filed: 11/09/18 08:30> Vital Signs 11/09/18 06:58 Temperature 97.9 F Pulse Rate 106 H Respiratory 18 Rate Blood Pressure 139/93 O2 Sat by Pulse 100 Oximetry - Reevaluation(s) Reevaluation #1: 11/09/18 08:31 PA supervision: Patient was back in the emergency Department with complaints of severe abdominal pain he was recently admitted for the same as well as inflammatory bowel disease. I did discuss the case with Dr. Marie patient will be admitted with consultation by Dr. Guo (Russ Gilbert) Medical Decision Making - Lab Data Result diagrams: 11/09/18 07:28 11/09/18 07:28 <Russ Gilbert - Last Filed: 11/09/18 08:30> - Lab Data Result diagrams: 11/09/18 07:28 11/09/18 07:28 <Navin Garcia - Last Filed: 11/09/18 08:36> - Medical Decision Making 33-year-old male presents emergency from for abdominal pain. X-ray shows chronic dilation concern for obstruction in which she had an the past. This is related to his Crohn's. Patient will be admitted with consult to Dr. Guo (Navin Garcia) - Lab Data Lab Results 11/09/18 11/09/18 11/09/18 Range/Units 07:28 07:28 07:28 WBC 11.9 H (3.8-10.6) k/uL RBC 5.53 (4.30-5.90) m/uL Hgb 14.1 (13.0-17.5) gm/dL Hct 45.1 (39.0-53.0) % MCV 81.6 (80.0-100.0) fL MCH 25.6 (25.0-35.0) pg MCHC 31.3 (31.0-37.0) g/dL RDW 13.3 (11.5-15.5) % Plt Count 462 H (150-450) k/uL Neutrophils % 80 % Lymphocytes % 10 % Monocytes % 9 % Eosinophils % 1 % Basophils % 0 % Neutrophils # 9.5 H (1.3-7.7) k/uL Lymphocytes # 1.2 (1.0-4.8) k/uL Monocytes # 1.0 (0-1.0) k/uL Eosinophils # 0.1 (0-0.7) k/uL Basophils # 0.0 (0-0.2) k/uL Sodium 141 (137-145) mmol/L Potassium 3.9 (3.5-5.1) mmol/L Chloride 98 (98-107) mmol/L Carbon Dioxide 33 H (22-30) mmol/L Anion Gap 10 mmol/L BUN 20 (9-20) mg/dL Creatinine 1.29 H (0.66-1.25) mg/dL Est GFR (CKD-EPI)AfAm 84 (>60 ml/min/1.73 sqM) Est GFR (CKD-EPI)NonAf 73 (>60 ml/min/1.73 sqM) Glucose 90 (74-99) mg/dL Plasma Lactic Acid Reece 2.1 H* (0.7-2.0) mmol/L Calcium 9.6 (8.4-10.2) mg/dL Total Bilirubin 0.5 (0.2-1.3) mg/dL AST 11 L (17-59) U/L ALT 17 L (21-72) U/L Alkaline Phosphatase 84 (38-126) U/L Total Protein 6.8 (6.3-8.2) g/dL Albumin 3.8 (3.5-5.0) g/dL Amylase 51 (30-110) U/L Lipase 119 (23-300) U/L Disposition <Russ Gilbert - Last Filed: 11/09/18 08:30> <Navin Garcia - Last Filed: 11/09/18 08:36> Clinical Impression: Acute Crohn's disease, Large bowel obstruction Disposition: ADMITTED IP TO THIS [facility] Condition: Fair Referrals: None,Stated [Primary Care Provider] - 1-2 days
[2018-11-09 08:03] LABS: Basophils % (A) 0 %; Eosinophils # (A) 0.1 k/uL (0-0.7); Eosinophils % (A) 1 %; HCT 45.1 % (39.0-53.0); HGB 14.1 gm/dL (13.0-17.5); Lymphocytes # (A) 1.2 k/uL (1.0-4.8); Lymphocytes % (A) 10 %; MCH 25.6 pg (25.0-35.0); MCHC 31.3 g/dL (31.0-37.0); MCV 81.6 fL (80.0-100.0); Mean Platelet Volume 6.5; Monocytes % (A) 9 %; Neutrophils # (A) 9.5 k/uL (1.3-7.7); Neutrophils % (A) 80 %; Platelet Count 462 k/uL (150-450); RBC 5.53 m/uL (4.30-5.90); RDW 13.3 % (11.5-15.5); WBC 11.9 k/uL (3.8-10.6)
--- NOTE | 2018-11-09 08:04 | XR ---
EXAMINATION TYPE: XR KUB , 2 VIEWS DATE OF EXAM ORDERED: 11/09/2018 HISTORY: abdominal pain. COMPARISON: Previous study dated 11/02/2018. FINDINGS: The lung bases are clear. Within the abdomen, the colon is somewhat featureless. Its mildly distended. No free air is identifie d. No unusual calcifications are seen. IMPRESSION: NONDISTENDED FEATURELESS: LIKELY REFLECTS THE PATIENT'S COLITIS.
[2018-11-09 08:05] LABS: Albumin 3.8 g/dL (3.5-5.0); Calcium 9.6 mg/dL (8.4-10.2); Potassium 3.9 mmol/L (3.5-5.1); Total Bilirubin 0.5 mg/dL (0.2-1.3); Total Protein 6.8 g/dL (6.3-8.2)
[2018-11-09] MEDS ORDERED: NALOXONE 0.4 MG/ML 1 ML VIAL IV PRN (08:36)
[2018-11-09 09:04] LABS: Appearance,Urine Clear (Clear); Bilirubin,Urine Negative (Negative); Blood,Urine Negative (Negative); Color,Urine Yellow; Glucose,Urine (UA) Negative (Negative); Ketones,Urine Negative (Negative); Leukocyte Esterase,Urine Negative (Negative); Nitrite,Urine Negative (Negative); PH, Urine 6.5 (5.0-8.0); Protein,Urine Trace (Negative); Urobilinogen,Urine <2.0 mg/dL (<2.0)
[2018-11-09] MEDS: SODIUM CHLORIDE 0.9% 1,000 ML IV SCH ×2 (10:29→19:51)
[2018-11-09] MEDS: PANTOPRAZOLE 40 MG/10 ML VIAL IV SCH (10:30)
[2018-11-09] MEDS: HYDROmorphone 1 MG/ML 1 ML SYRINGE IVP PRN ×5 (10:30→22:55)
[2018-11-10] MEDS: HYDROmorphone 1 MG/ML 1 ML SYRINGE IVP PRN ×7 (03:37→22:34)
[2018-11-10] MEDS: SODIUM CHLORIDE 0.9% 1,000 ML IV SCH ×3 (04:46→16:07)
[2018-11-10 08:11] LABS: Basophils % (A) 0 %; Eosinophils # (A) 0.1 k/uL (0-0.7); Eosinophils % (A) 1 %; HCT 45.3 % (39.0-53.0); HGB 13.8 gm/dL (13.0-17.5); Hypochromasia Slight; Lymphocytes # (A) 0.9 k/uL (1.0-4.8); Lymphocytes % (A) 8 %; MCH 25.6 pg (25.0-35.0); MCHC 30.5 g/dL (31.0-37.0); MCV 84.1 fL (80.0-100.0); Mean Platelet Volume 7.3; Monocytes # (A) 0.8 k/uL (0-1.0); Monocytes % (A) 7 %; Neutrophils # (A) 9.3 k/uL (1.3-7.7); Neutrophils % (A) 83 %; Platelet Count 434 k/uL (150-450); RBC 5.38 m/uL (4.30-5.90); RDW 13.9 % (11.5-15.5); WBC 11.1 k/uL (3.8-10.6)
[2018-11-10 08:22] LABS: African American GFR (CKD) >90 (>60 ml/min/1.73 sqM); Anion Gap 10 mmol/L; Blood Urea Nitrogen 16 mg/dL (9-20); Carbon Dioxide 28 mmol/L (22-30); Chloride 98 mmol/L (98-107); Glucose 72 mg/dL (74-99); Sodium 136 mmol/L (137-145)
[2018-11-10] MEDS: ONDANSETRON 4 MG/2 ML VIAL IVP PRN ×2 (09:27→19:31)
[2018-11-10] MEDS: PANTOPRAZOLE 40 MG/10 ML VIAL IV SCH (09:27)
[2018-11-10] MEDS: IOPAMIDOL-300 CONTRAST 30 ML VIAL (ORAL USE) PO PRN ×2 (13:04→16:07)
--- NOTE | 2018-11-10 14:18 | P.GSCN ---
History of Present Illness Consult date: 11/10/18 Reason for Consult: Abdominal pain, nausea History of present illness: This is a 33-year-old male with a known history of Crohn's disease. Patient had a recent hospital position for a colonic obstruction secondary to a stricture of the sigmoid colon related to previous Crohn's disease. Patient states that he developed abdominal pain distention. He has pain in the left lower quadrant. This is similar to his previous attack of colonic obstruction secondary to his Crohn's stricture. Past Medical History Past Medical History: GI Bleed Additional Past Medical History / Comment(s): CROHNS last 9-10 years History of Any Multi-Drug Resistant Organisms: None Reported Past Surgical History: Appendectomy, Hernia Repair Additional Past Surgical History / Comment(s): COLONOSCOPIES/. EYE SURG TO CORRECT LAZY EYE, Past Anesthesia/Blood Transfusion Reactions: No Reported Reaction Past Psychological History: No Psychological Hx Reported Smoking Status: Never smoker Past Alcohol Use History: Occasional Past Drug Use History: None Reported - Past Family History Mother Family Medical History: No Reported History Medications and Allergies Home Medications Medication Instructions Recorded Confirmed Type Ustekinumab [Stelara] 45 mg SQ Q56D 11/02/18 11/09/18 History predniSONE 20 mg PO DAILY PRN 11/09/18 11/09/18 History Allergies Allergy/AdvReac Type Severity Reaction Status Date / Time adalimumab [From Humira] Allergy Anaphylaxis Verified 11/09/18 09:30 azathioprine [From Imuran] Allergy Anaphylaxis Verified 11/09/18 09:30 infliximab [From Remicade] Allergy Anaphylaxis Verified 11/09/18 09:30 venom-honey bee Allergy Anaphylaxis Verified 11/09/18 09:30 Surgical - Exam Vital Signs Temp Pulse Resp BP Pulse Ox 97.9 F 106 H 18 139/93 100 11/09/18 06:58 11/09/18 06:58 11/09/18 06:58 11/09/18 06:58 11/09/18 06:58 - General well developed, well nourished, no distress - Eyes PERRL - ENT normal pinna - Neck no masses - Respiratory normal expansion - Cardiovascular Rhythm: regular - Abdomen Mildly tender left lower quadrant Abdomen: soft Results - Labs 11/10/18 06:57 11/10/18 06:57 Abnormal Lab Results - Last 24 Hours (Table) 11/10/18 11/10/18 11/10/18 Range/Units 06:57 06:57 06:57 WBC 11.1 H (3.8-10.6) k/uL MCHC 30.5 L (31.0-37.0) g/dL Neutrophils # 9.3 H (1.3-7.7) k/uL Lymphocytes # 0.9 L (1.0-4.8) k/uL ESR 20 H (0-15) mm/hr Sodium 136 L (137-145) mmol/L Glucose 72 L (74-99) mg/dL C-Reactive Protein (<10.0) mg/L 11/10/18 Range/Units 06:57 WBC (3.8-10.6) k/uL MCHC (31.0-37.0) g/dL Neutrophils # (1.3-7.7) k/uL Lymphocytes # (1.0-4.8) k/uL ESR (0-15) mm/hr Sodium (137-145) mmol/L Glucose (74-99) mg/dL C-Reactive Protein 137.3 H (<10.0) mg/L Diabetes panel 11/10/18 Range/Units 06:57 Sodium 136 L (137-145) mmol/L Potassium 5.0 (3.5-5.1) mmol/L Chloride 98 (98-107) mmol/L Carbon Dioxide 28 (22-30) mmol/L BUN 16 (9-20) mg/dL Creatinine 0.95 (0.66-1.25) mg/dL Glucose 72 L (74-99) mg/dL Calcium 9.0 (8.4-10.2) mg/dL Calcium panel 11/10/18 Range/Units 06:57 Calcium 9.0 (8.4-10.2) mg/dL Pituitary panel 11/10/18 Range/Units 06:57 Sodium 136 L (137-145) mmol/L Potassium 5.0 (3.5-5.1) mmol/L Chloride 98 (98-107) mmol/L Carbon Dioxide 28 (22-30) mmol/L BUN 16 (9-20) mg/dL Creatinine 0.95 (0.66-1.25) mg/dL Glucose 72 L (74-99) mg/dL Calcium 9.0 (8.4-10.2) mg/dL Adrenal panel 11/10/18 Range/Units 06:57 Sodium 136 L (137-145) mmol/L Potassium 5.0 (3.5-5.1) mmol/L Chloride 98 (98-107) mmol/L Carbon Dioxide 28 (22-30) mmol/L BUN 16 (9-20) mg/dL Creatinine 0.95 (0.66-1.25) mg/dL Glucose 72 L (74-99) mg/dL Calcium 9.0 (8.4-10.2) mg/dL Assessment and Plan Assessment: Crohn's disease with history of sigmoid colon stricture. Patient will undergo K computed tomography scan of the abdomen pelvis to evaluate his stricture. We will follow with you.
[2018-11-10] MEDS ORDERED: TEMAZEPAM 15 MG CAP PO PRN (17:32)
[2018-11-10] MEDS ORDERED: ALPRAZolam 0.25 MG TAB PO PRN (17:32)
--- NOTE | 2018-11-10 17:45 | CT ---
EXAMINATION TYPE: CT abdomen pelvis w con DATE OF EXAM: 11/10/2018 COMPARISON: 11/02/2018 HISTORY: LLQ pain with history of chrons CT DLP: 726.4 mGycm Automated exposure control for dose reduction was used. TECHNIQUE: Helical acquisition of images was performed from the lung bases through the pelvis. CONTRAST: Performed with Oral Contrast and with IV Contrast, patient injected with 100 mL of Isovue 300. FINDINGS: There is some linear density at the right lung base. The other lung mario are clear. Heart size is n ormal. There is no pericardial effusion. Gallbladder appears normal. Liver spleen stomach appear normal. The bile ducts are not dilated. There is no adrenal mass. Kidneys show satisfactory contrast opacification. There is no hydronephrosis. There is no retroperitoneal ad enopathy. Ureters are not dilated. There is dilated large bowel. There is mild wall thickening of the large bowel from the cecum to the rectum. There is 5 x 2.5 cm extraluminal fluid collection with air-fluid levels on the left lateral a spect of the mid sigmoid colon consistent with abscess. Bladder distends smoothly. There is no inguinal hernia. There are small amount of free fluid in the p arielle. There is no evidence of free air in the abdomen. IMPRESSION: INFLAMMATORY WALL THICKENING OF THE ENTIRE LARGE BOWEL. UNCHANGED. THERE IS MORE SIGNIFICANT INVOLVEM ENT OF THE MID SIGMOID COLON. THIS IS CONSISTENT WITH INFLAMMATORY BOWEL DISEASE. THERE IS A ABSCESS ON THE LEFT LATERAL ASPECT OF THE MID SIGMOID COLON THAT IN RETROSPECT IS INCREASED COMPARED TO LAST EXAM. THERE IS MILD FREE FLUID IN THE PELVIS SLIGHTLY INCREASED COMPARED TO LAST EXAM.
[2018-11-10] MEDS ORDERED: PIPERACILLIN-TAZOBACTAM 3.375 GM in SODIUM CHLORIDE 0.9% 100 ML IVPB SCH ×2 (18:00→22:45)
--- NOTE | 2018-11-10 21:00 | PN ---
PROGRESS NOTE DATE OF SERVICE: 11/10/2018 This 33-year-old gentleman who was admitted with a history of Crohn's disease was recently admitted to [facility]. Currently the patient is admitted with abdominal distention, pain and features of bowel obstruction. The patient has possible colonic obstruction. Dr. Andres is following the patient closely. CT scan of the abdomen was ordered; final report is pending at this time. Plain x-ray abdomen is noted. Past medical history reviewed. REVIEW OF SYSTEMS: CARDIOVASCULAR SYSTEM: No angina, palpitations. RESPIRATORY SYSTEM: As mentioned earlier. GI: As mentioned earlier. : No dysuria or retention. NERVOUS SYSTEM: No numbness, weakness. CURRENT MEDICATIONS: Reviewed. They include: 1. Dilaudid p.r.n. 2. Narcan. 3. Zofran. 4. Protonix. PHYSICAL EXAMINATION: Patient is alert, oriented x3. Pulse 84, blood pressure 148/80, respiration 12, temperature 98.1, pulse ox 96% on room air. HEENT: Conjunctivae normal. NECK: No jugular venous distention. CARDIOVASCULAR SYSTEM: S1, S2 muffled. RESPIRATORY SYSTEM: Breath sounds diminished at the bases. A few scattered rhonchi and crackles. ABDOMEN: Soft. Diffuse distention. Diffuse tenderness. No guarding. No rigidity. No mass palpable. Bowel sounds diminished. LEGS: No edema. No swelling. NERVOUS SYSTEM: Higher functions as mentioned earlier. Moves all 4 limbs. No focal motor or sensory deficit. LYMPHATICS: No lymph node palpable in neck, axillae or groin. SKIN: No ulcer, rash, bleeding. JOINTS: No active deforming arthropathy. LABS: WBC 11.1, sodium 136. C-reactive protein is 137. ESR is 20. ASSESSMENT: 1. Abdominal distention and pain with possible bowel obstruction secondary to sigmoid colonic stricture, possibly. 2. Increased white count. 3. Increased plasma lactic acid. 4. Increased creatinine with possible mild acute renal failure, present on admission. 5. Hyponatremia. 6. Elevated CRP to 137.3. 7. History of gastrointestinal bleed. 8. History of appendectomy. 9. History of hernia surgery. 10.FULL CODE. RECOMMENDATIONS AND DISCUSSION: In this 33-year-old gentleman who presented with multiple complex medical issues, we will monitor the patient closely, continue the current management, continue with symptomatic treatment. Otherwise at this time we will provide symptomatic treatment, DVT prophylaxis I would also recommend broad-spectrum IV antibiotics. Surgical consultation. I would also recommend a gastroenterology consultation. Guarded prognosis because of multiple complex medical issues. Further recommendations to follow. A copy of this dictation is being forwarded to Dr. Carmona, who is following the patient in the outpatient setting. MMODL / IJN: [id number] /
[2018-11-10] MEDS: HEPARIN SODIUM,PORCINE 5,000 UNIT/ML 1 ML VIAL SQ SCH (21:55)
--- NOTE | 2018-11-11 | P.HPIM ---
History of Present Illness H&P Date: 11/09/18 Chief Complaint: Abdominal pain This is a 33-year-old male presents emergency Department chief complaint of abdominal pain. Patient had a recent hospitalization for Crohn's exacerbation with mechanical: Obstruction. Patient is a was discharged and he was scheduled in a few weeks for colon resection. Patient states his surgeon is Dr. guo. Patient is currently on prednisone. Patient states he has not had a bowel movement a few days and states he has not been able to pass any gas. Patient states his abdomen is distended, painful and his been nauseated. No current vomiting denies fever or chills. Patient does see GI. Patient denies any dysuria or hematuria Review of Systems Constitutional: Denies chills, Denies fever Eyes: denies blurred vision Ears, nose, mouth and throat: Reports epistaxis, Denies bleeding gums, Denies headache Cardiovascular: Denies chest pain, Denies palpitations Respiratory: Denies cough with sputum, Denies dyspnea Gastrointestinal: Reports abdominal pain, Reports diarrhea, Reports nausea, Denies vomiting Genitourinary: Denies dysuria, Denies hematuria Musculoskeletal: Denies frequent falls, Denies gait dysfunction Integumentary: Denies color changes, Denies rash Past Medical History Past Medical History: GI Bleed Additional Past Medical History / Comment(s): CROHNS last 9-10 years History of Any Multi-Drug Resistant Organisms: None Reported Past Surgical History: Appendectomy, Hernia Repair Additional Past Surgical History / Comment(s): COLONOSCOPIES/. EYE SURG TO CORRECT LAZY EYE, Past Anesthesia/Blood Transfusion Reactions: No Reported Reaction Past Psychological History: No Psychological Hx Reported Smoking Status: Never smoker Past Alcohol Use History: Occasional Past Drug Use History: None Reported - Past Family History Mother Family Medical History: No Reported History Medications and Allergies Home Medications Medication Instructions Recorded Confirmed Type Ustekinumab [Stelara] 45 mg SQ Q56D 11/02/18 11/09/18 History predniSONE 20 mg PO DAILY PRN 11/09/18 11/09/18 History Allergies Allergy/AdvReac Type Severity Reaction Status Date / Time adalimumab [From Humira] Allergy Anaphylaxis Verified 11/09/18 09:30 azathioprine [From Imuran] Allergy Anaphylaxis Verified 11/09/18 09:30 infliximab [From Remicade] Allergy Anaphylaxis Verified 11/09/18 09:30 venom-honey bee Allergy Anaphylaxis Verified 11/09/18 09:30 Physical Exam Vitals: Vital Signs Temp Pulse Pulse Resp BP BP Pulse Ox 11/09/18 09:28 98.5 F 86 16 163/98 97 11/09/18 08:49 98.6 F 86 18 152/90 97 11/09/18 06:58 97.9 F 106 H 18 139/93 100 Intake and Output 11/08/18 11/09/18 11/09/18 22:59 06:59 14:59 Other: Weight 78.925 kg General appearance: alert, in no apparent distress Head exam: Present: atraumatic, normocephalic, normal inspection Eye exam: Present: normal appearance, PERRL, EOMI. Absent: scleral icterus, conjunctival injection, periorbital swelling Respiratory exam: Present: normal lung sounds bilaterally. Absent: respiratory distress, wheezes, rales, rhonchi, stridor Cardiovascular Exam: Present: normal rhythm, tachycardia, normal heart sounds. Absent: systolic murmur, diastolic murmur, rubs, gallop, clicks GI/Abdominal exam: Present: soft, distended, tenderness, rigid, normal bowel sounds. Absent: guarding, rebound Back exam: Absent: CVA tenderness (R), CVA tenderness (L) Neurological exam: Present: alert, oriented X3, CN II-XII intact Skin exam: Present: warm, dry, intact, normal color. Absent: rash Results CBC & Chem 7: 11/10/18 06:57 11/10/18 06:57 Labs: Abnormal Lab Results - Last 24 Hours (Table) 11/09/18 11/09/18 11/09/18 Range/Units 07:28 07:28 07:28 WBC 11.9 H (3.8-10.6) k/uL Plt Count 462 H (150-450) k/uL Neutrophils # 9.5 H (1.3-7.7) k/uL Carbon Dioxide 33 H (22-30) mmol/L Creatinine 1.29 H (0.66-1.25) mg/dL Plasma Lactic Acid Reece 2.1 H* (0.7-2.0) mmol/L AST 11 L (17-59) U/L ALT 17 L (21-72) U/L Urine Protein (Negative) 11/09/18 Range/Units 08:26 WBC (3.8-10.6) k/uL Plt Count (150-450) k/uL Neutrophils # (1.3-7.7) k/uL Carbon Dioxide (22-30) mmol/L Creatinine (0.66-1.25) mg/dL Plasma Lactic Acid Reece (0.7-2.0) mmol/L AST (17-59) U/L ALT (21-72) U/L Urine Protein Trace H (Negative) Thrombosis Risk Factor Assmnt - Choose All That Apply Any of the Below Risk Factors Present?: Yes Each Factor Represents 1 point: Hx of IBD Other Risk Factors: No Other congenital or acquired thrombophilia - If yes, enter type in comment: No Thrombosis Risk Factor Assessment Total Risk Factor Score: 1 Thrombosis Risk Factor Assessment Level: Low Risk Assessment and Plan Assessment: 1. Abdominal distention; Poss Bowel Obstruction - patient has h/o Crohn's ds with sigmoid stricture - we will keep patient NPO and start patient on IVFs; monitor strict I&Os; daily weights with renal function and electrolytes - pain control with IV dilaudid - consult Sx; recommending CT abd to evaluate colonic stricture 2. Crohn's ds; doubt exacerbation; holf off steroids 3. Leukocytosis w/ elevated lactic acid level; clinically not septic - will monitor off antibiotics; follow CBC and cultures; lactic acid levels 4. Ac Renal Injury/ Dehydration; IVFs; avoid nephrotoxins and hypotension; monitor renal funtion and electrolytes 5. Hyponatremia; sec to dehydration; IVFs 5. DVT Ppx Code Status; full code Time with Patient: Greater than 30
[2018-11-11] MEDS: HYDROmorphone 1 MG/ML 1 ML SYRINGE IVP PRN ×7 (01:51→21:28)
[2018-11-11] MEDS: PIPERACILLIN-TAZOBACTAM 3.375 GM in SODIUM CHLORIDE 0.9% 100 ML IVPB SCH ×3 (01:52→18:07)
[2018-11-11] MEDS: SODIUM CHLORIDE 0.9% 1,000 ML IV SCH (01:52)
[2018-11-11] MEDS: ONDANSETRON 4 MG/2 ML VIAL IVP PRN (04:30)
[2018-11-11] MEDS ORDERED: ONDANSETRON 4 MG/2 ML VIAL IVP STA (08:49)
[2018-11-11] MEDS ORDERED: HYDROmorphone 1 MG/ML 1 ML SYRINGE IVP STA (08:50)
[2018-11-11 08:56] LABS: Basophils % (A) 0 %; Eosinophils % (A) 0 %; HCT 49.5 % (39.0-53.0); HGB 15.2 gm/dL (13.0-17.5); Hypochromasia Slight; Lymphocytes # (A) 0.4 k/uL (1.0-4.8); Lymphocytes % (A) 3 %; MCH 25.6 pg (25.0-35.0); MCHC 30.7 g/dL (31.0-37.0); MCV 83.5 fL (80.0-100.0); Monocytes % (A) 7 %; Neutrophils # (A) 12.8 k/uL (1.3-7.7); Neutrophils % (A) 90 %; Platelet Count 468 k/uL (150-450); RBC 5.93 m/uL (4.30-5.90); RDW 13.4 % (11.5-15.5); WBC 14.2 k/uL (3.8-10.6)
[2018-11-11 08:59] LABS: African American GFR (CKD) >90 (>60 ml/min/1.73 sqM); Anion Gap 13 mmol/L; Blood Urea Nitrogen 18 mg/dL (9-20); Calcium 9.7 mg/dL (8.4-10.2); Carbon Dioxide 25 mmol/L (22-30); Chloride 99 mmol/L (98-107); Glucose 133 mg/dL (74-99); Potassium 5.1 mmol/L (3.5-5.1); Sodium 137 mmol/L (137-145)
[2018-11-11] MEDS: HEPARIN SODIUM,PORCINE 5,000 UNIT/ML 1 ML VIAL SQ SCH ×2 (09:48→21:27)
[2018-11-11] MEDS: PANTOPRAZOLE 40 MG/10 ML VIAL IV SCH (09:48)
--- NOTE | 2018-11-11 10:55 | P.CONS ---
History of Present Illness - Reason for Consult Consult date: 11/11/18 Crohn's disease Requesting physician: Bassam Gaffney - Chief Complaint Abdominal pain - History of Present Illness 33-year-old gentleman patient of Dr. Carmona with a history of stricturing colonic Crohn's disease maintained on biological therapy previously including Remicade a nd Humira and Imuran all of which were stopped due to adverse reactions presently on Stelara. Recently hospitalized a week ago for abdominal pain exacerbation of Crohn's mechanical distal large bowel obstruction stricture the proximal sigmoid colon. He was discharged last Saturday with improvement in abdominal pain prednisone taper. He was seen by general surgery the next day with plans for outpatient surgery December 02. He developed increased abdominal pain on Saturday night nausea vomiting without fever or hematemesis hematochezia or melena. Last bowel movement was Saturday reported as nonbloody. CT abdomen and pelvis yesterday reported inflammatory wall thickening of the entire large bowel unchanged. More significant involvement of the mid sigmoid colon consistent with a ventral disease. Abscess in the left lateral aspect of the mid sigmoid colon that in retrospect is increased compared to last exam. Mild free fluid in the pelvis slightly increased compared to last exam. White count 11.9 on admission presently 14.2. Presently hemoglobin is 15.2. ESR 20. Platelet 468. CRP 137.3. Afebrile. Receiving IV antibiotics. General surgery consult and following closely. NG tube inserted. Presently no passage of flatus or bowel movements. Reports left lower quadrant pain. Vital signs heart rate 84-100. Respiratory rate 12-18. T-max 99.3. Colonoscopy May 2017 reported active Crohn's disease involving the sigmoid colon in a segmental fashion with strictures that necessitated using the Olympus GIF-140 60 upper endoscope. Biopsies consistent with active ileitis and chronic active transverse colitis with ulceration. Review of Systems Constitutional: Denies fever, chills, sweats, weight gain, or loss. HEENT: Negative for migraines, blurred vision or loss, earaches, drainage, tinnitus, oral mucosal lesions, dysphagia, or odynophagia. Cardiac: Negative for chest pain, arrhythmias, or palpitation. Respiratory: Negative for shortness of breath, hemoptysis, cough, or sputum production. Gastrointestinal: See HPI for pertinent findings. Genitourinary: Negative for hematuria, urgency, frequency, polyuria, dysuria, or penile discharge. Musculoskeletal: Negative for muscle aches, swelling, arthritis, and arthralgias. Neurologic: Negative for stroke or TIA. Endocrine: Negative for thyroid problems. Skin: Negative for rash or itching. Psychiatric: Negative history for depression and anxiety Past Medical History Past Medical History: GI Bleed Additional Past Medical History / Comment(s): CROHNS last 9-10 years History of Any Multi-Drug Resistant Organisms: None Reported Past Surgical History: Appendectomy, Hernia Repair Additional Past Surgical History / Comment(s): COLONOSCOPIES/. EYE SURG TO CORRECT LAZY EYE, Past Anesthesia/Blood Transfusion Reactions: No Reported Reaction Past Psychological History: No Psychological Hx Reported Smoking Status: Never smoker Past Alcohol Use History: Occasional Past Drug Use History: None Reported - Past Family History Mother Family Medical History: No Reported History Medications and Allergies Home Medications Medication Instructions Recorded Confirmed Type Ustekinumab [Stelara] 45 mg SQ Q56D 11/02/18 11/09/18 History predniSONE 20 mg PO DAILY PRN 11/09/18 11/09/18 History Allergies Allergy/AdvReac Type Severity Reaction Status Date / Time adalimumab [From Humira] Allergy Anaphylaxis Verified 11/09/18 09:30 azathioprine [From Imuran] Allergy Anaphylaxis Verified 11/09/18 09:30 infliximab [From Remicade] Allergy Anaphylaxis Verified 11/09/18 09:30 venom-honey bee Allergy Anaphylaxis Verified 11/09/18 09:30 Physical Exam Vitals: Vital Signs Temp Pulse Resp BP Pulse Ox 11/11/18 07:15 98.1 F 100 16 158/112 97 11/11/18 04:36 98.0 F 11/11/18 04:35 18 11/11/18 01:08 97.9 F 95 139/91 96 11/10/18 23:19 16 11/10/18 21:56 97.2 F L 11/10/18 20:01 99.3 F 94 16 144/92 95 11/10/18 15:00 98.1 F 98 12 149/95 94 L Intake and Output 11/10/18 11/11/18 11/11/18 22:59 06:59 14:59 Intake Total 900 900 Output Total 50 Balance 900 850 Intake: Intake, IV Titration 900 900 Amount Piperacillin-Tazobactam 3 100 100 .375 gm In Sodium Chloride 0.9% 100 ml @ 25 mls/hr IVPB Q8H [facility] Rx#: [id number] Sodium Chloride 0.9% 1, 800 800 000 ml @ 100 mls/hr IV . Q10H [facility] Rx#:[id number] Output: Emesis 50 Other: Voiding Method Toilet # Emeses 1 General appearance: The patient is alert, oriented. HET: Head is normocephalic and atraumatic. Pupils are equal and reactive. Or opharynx is clear without lesions. NG tube with minimal bilious output. Neck: Supple without lymphadenopathy. Trachea midline. Heart: S1 S2. Regular rate and rhythm. Lungs: No crackles or wheezes are heard. Abdomen: Soft, tenderness left lower quadrant with guarding bowel sounds present. No palpable organomegaly or masses. Extremities: Normal skin color and turgor. No cyanosis, rash, ulceration, clubbing, or edema. Radial and pedal pulses are 2/4 bilaterally. Neurological: No focal deficits. Strength and sensation are grossly intact. Results CBC & Chem 7: 11/13/18 05:35 11/13/18 05:35 Labs: Abnormal Lab Results - Last 24 Hours (Table) 11/10/18 11/10/18 11/11/18 Range/Units 06:57 06:57 08:28 WBC 14.2 H (3.8-10.6) k/uL RBC 5.93 H (4.30-5.90) m/uL MCHC 30.7 L (31.0-37.0) g/dL Plt Count 468 H (150-450) k/uL Neutrophils # 12.8 H (1.3-7.7) k/uL Lymphocytes # 0.4 L (1.0-4.8) k/uL ESR 20 H (0-15) mm/hr Glucose (74-99) mg/dL C-Reactive Protein 137.3 H (<10.0) mg/L 11/11/18 Range/Units 08:28 WBC (3.8-10.6) k/uL RBC (4.30-5.90) m/uL MCHC (31.0-37.0) g/dL Plt Count (150-450) k/uL Neutrophils # (1.3-7.7) k/uL Lymphocytes # (1.0-4.8) k/uL ESR (0-15) mm/hr Glucose 133 H (74-99) mg/dL C-Reactive Protein (<10.0) mg/L Microbiology - Last 24 Hours (Table) 11/11/18 01:45 Urine Culture - Preliminary Urine,Voided CT scan - abdomen: report reviewed (Dr. Carmona) Assessment and Plan (1) Abdominal pain Narrative/Plan: 33-year-old male with a history Crohn's disease of the small and large bowel with colonic stricturing treated with biological therapy previously receiving Stelara prednisone taper presents with left lower quadrant abdominal pain leukocytosis SIRS possible sepsis. CT abdomen reported abscess left lateral aspect of the mid sigmoid colon with inflammatory changes consistent with inflammatory bowel disease. Current Visit: Yes Status: Acute Code(s): R10.9 - UNSPECIFIED ABDOMINAL PAIN SNOMED Code(s): 92042220 (2) Acute Crohn's disease Current Visit: Yes Status: Acute Code(s): K50.90 - CROHN'S DISEASE, UNSPECIFIED, WITHOUT COMPLICATIONS SNOMED Code(s): 63123916 Plan: 1. General surgical consult. We'll defer to their service for further recommendations in regards to CT findings. Nothing by mouth. NG tube. 2. IV antibiotics. IV Solu-Medrol 20 mg every 8 hours. Daily CBC electrolyte CRP monitoring. Recommend infectious disease consultation. Thank you for this kind referral and the opportunity to participate in the care of your patient. This consultation was discussed with Dr. Carmona. The impression and plan of care have been directed as dictated.
--- NOTE | 2018-11-11 12:58 | P.PN ---
Progress Note - Text Progress Note Date: 11/11/18 The patient's CAT scan was reviewed with Dr. Wang. Patient has evidence of an abscess near the sigmoid colon stricture. He also is evidence of significant colitis. Patient states he feels miserable. He has complaints of abdominal pain which is worse in the left lower quadrant. On exam his vital signs are stable. His abdomen soft. There is marked tenderness throughout. There is increased tenderness in the left lower quadrant. I lead to discussion the patient and his family. At this point given the abscess and significant bowel inflammation I believe that he should undergo sigmoid colectomy with end colostomy. Once his clinical condition is improving undergo reversal of colostomy. The patient will be scheduled for surgery tomorrow. Dr. Lau will be evaluated the patient later today.
[2018-11-11] MEDS: methylPREDNISolone SOD SUCCI 40 MG/ML 1 ML VIAL IV SCH (15:17)
[2018-11-11] MEDS ORDERED: hydrALAZINE HCL 20 MG/ML 1 ML VIAL IVP PRN (16:28)
[2018-11-11 16:29] LABS: Glucose,Whole Blood 115 mg/dL (75-99)
--- NOTE | 2018-11-11 17:16 | PN ---
PROGRESS NOTE DATE OF SERVICE: 11/11/2018. This 33-year-old gentleman admitted with Crohn's disease and multiple other medical issues also had inflammatory wall thickening of the entire large bowel in the the CT scan and there is on also an abscess in the left lateral aspect of the mid sigmoid colon, possibly indicating a perforation also. Dr. Andres is planning surgery. Infectious Disease and Gastroenterology is also being consulted. PAST MEDICAL HISTORY: Reviewed. REVIEW OF SYSTEMS: CARDIOVASCULAR: No angina or palpitations. RESPIRATION: As mentioned earlier. GI: As mentioned earlier. : No dysuria. CENTRAL NERVOUS SYSTEM: No numbness or weakness. CURRENT MEDICATIONS: Reviewed and include: 1. Xanax 0.5 t.i.d. p.r.n. 2. Heparin 5000 subcu b.i.d. 3. Dilaudid 0.5 mg q.3 p.r.n. 4. Solu-Medrol 20 mg IV q.8h. 5. Narcan 0.2 mg q.2 p.r.n. 6. Protonix 40 mg daily. 7. Zosyn 3.375 IV q.8h. 8. Restoril 15 mg q.h.s. p.r.n. PHYSICAL EXAM: Patient is alert, oriented x3. Pulse 110, blood pressure 158/112, respirations 16, temperature 98.1, pulse ox 94% on room air. HEENT: Conjunctivae normal. Oral mucosa moist. NECK is no jugular venous distention. No carotid bruit. No lymph node enlargement. CARDIOVASCULAR system: S1, S2 MUFFLED. RESPIRATORY: Breath sounds diminished at the bases. A few scattered rhonchi and crackles. ABDOMEN: Soft, mild diffuse distention. Mild diffuse tenderness present. No guarding. No rigidity. No rebound tenderness. Bowel sounds diminished. No ascites. The flanks are resilient. LEGS: No edema. No swelling. NERVOUS SYSTEM: Higher functions as mentioned earlier. Moves all 4 limbs. No focal motor or sensory deficits. LYMPHATICS: No lymph nodes palpable in the neck, axillae or groin. SKIN: No ulcer, no rashes, no bleeding. JOINTS: No active deforming arthropathy. LABS: Lactic acid is normal. WBC 14.2. Otherwise, C-reactive protein is 137. ASSESSMENT: 1. Abdominal distention, pain with possible bowel obstruction secondary to sigmoid colon stricture, possibly. 2. Abscess in the left side of the abdomen with possibly some perforated sigmoid colon. 3. Crohn's disease, acute exacerbation. 4. Increased WBC. 5. Increased plasma lactic acid. 6. Increased creatinine with possible mild acute renal failure possibly present on admission. 7. Hyponatremia. 8. Elevated CRP to 137. 9. Gastrointestinal bleed. 10.History of appendectomy. 11.History of hernia surgery. 12.FULL CODE. RECOMMENDATIONS AND DISCUSSION: Recommend to continue current medications, management and symptomatic treatment. Otherwise, at this time, I recommend continue the broad-spectrum IV antibiotics, steroids. Gastroenterology consultation. Surgery consultation. Infectious disease evaluation. Guarded prognosis because of multiple complex medical issues. Further recommendations to follow. Discussed with the family at length. Understands and agrees. MMODL / IJN: [id number] /
[2018-11-11] MEDS: DEXTROSE 5%-0.45% NACL 1,000 ML IV SCH (22:01)
[2018-11-12] MEDS: HYDROmorphone 1 MG/ML 1 ML SYRINGE IVP PRN ×4 (00:44→12:36)
[2018-11-12] MEDS: methylPREDNISolone SOD SUCCI 40 MG/ML 1 ML VIAL IV SCH ×3 (00:44→20:47)
--- NOTE | 2018-11-12 01:19 | P.CONS ---
History of Present Illness - Reason for Consult Consult date: 11/11/18 - Chief Complaint abdominal pain - History of Present Illness 33-year-old male with a long-standing history of Crohn's disease with many complications has been treated with multiple agents as of late however failed multiple types of biological therapies and is now on Stelara. He thought he was having some relatively good response to this current course of therapy until he started developing increasing amounts of abdominal pain associated with nausea and emesis and loose stool. He felt very poorly and had fever and chills and constantly presents to the emergency center. Imaging studies are performed and surgical consult and gastroenterology consult were obtained. The patient is without evidence of significant abscess in consult was requested. The patient has NG tube in place which relates has helped him with some of the nausea and emesis or relieving symptoms abdominal pain. Pain medications are helping. Review of Systems HEENT:Denies headache or acute visual change. Denies sinus or mouth discomforts. Denies neck stiffness or pain. Denies significant oral cavity pain. Denies difficulty on swallowing. Lungs: Denies significant shortness of breath, cough, sputum production, or hemoptysis. Cardiovascular: Denies significant shortness of breath, chest pain, chest wall pain, orthopnea, dyspnea on exertion, syncope Gastrointestinalas per the HPI nausea emesis increasing ABd pain Musculoskeletal: denies significant myalgias or arthralgias. No new joint swelling. Denies new back pain. Skin: Denies new rash or lesions. No new ulcers or wounds are related.. Neuro: Denies headache or visual change. Denies any new onset weakness or difficulty with ambulation. Denies falls or seizures. Psychiatric:Denies anxiety or depression. Endocrine: fatigue and weight loss Past Medical History Past Medical History: GI Bleed Additional Past Medical History / Comment(s): CROHNS last 9-10 years History of Any Multi-Drug Resistant Organisms: None Reported Past Surgical History: Appendectomy, Hernia Repair Additional Past Surgical History / Comment(s): COLONOSCOPIES/. EYE SURG TO WAYNE ECT LAZY EYE, Past Anesthesia/Blood Transfusion Reactions: No Reported Reaction Past Psychological History: No Psychological Hx Reported Additional Psychological History / Comment(s): single. no tobacco or alcohol use. no animal exposures. no travel. no experience Smoking Status: Never smoker Past Alcohol Use History: Occasional Past Drug Use History: None Reported - Past Family History Mother Family Medical History: No Reported History Medications and Allergies Home Medications and Allergies Comment(s): Current Medications Alprazolam (Xanax) 0.25 mg PO TID PRN PRN Reason: Anxiety Clonidine (Catapres) 0.1 mg PO Q4HR PRN PRN Reason: Hypertension Heparin Sodium (Porcine) (Heparin) 5,000 unit SQ Q12HR [facility] Last Admin: 11/11/18 21:27 Dose: 5,000 unit Documented by: Hydralazine HCl (Apresoline) 10 mg IVP Q4HR PRN PRN Reason: Blood Pressure - High Last Admin: 11/11/18 21:27 Dose: 10 mg Documented by: Hydromorphone HCl (Dilaudid) 0.5 mg IVP Q3HR PRN PRN Reason: Moderate Pain Hydromorphone HCl (Dilaudid) 1 mg IVP Q3HR PRN PRN Reason: Severe Pain Last Admin: 11/12/18 00:44 Dose: 1 mg Documented by: Piperacillin Sod/Tazobactam (Sod 3.375 gm/ Sodium Chloride) 100 mls @ 25 mls/hr IVPB Q8H [facility] Last Admin: 11/11/18 18:07 Dose: 25 mls/hr Documented by: Dextrose/Sodium Chloride (Dextrose 5%-1/2ns Iv Soln) 1,000 mls @ 125 mls/hr IV .Q8H [facility] Last Admin: 11/11/18 22:01 Dose: 125 mls/hr Documented by: Methylprednisolone Sodium Succinate (Solu-Medrol) 20 mg IV Q8HR [facility] Last Admin: 11/12/18 00:44 Dose: 20 mg Documented by: Naloxone HCl (Narcan) 0.2 mg IV Q2M PRN PRN Reason: Opioid Reversal Ondansetron HCl (Zofran) 4 mg IVP Q8HR PRN PRN Reason: Nausea And Vomiting Last Admin: 11/11/18 04:30 Dose: 4 mg Documented by: Pantoprazole Sodium (Protonix) 40 mg IV DAILY [facility] Last Admin: 11/11/18 09:48 Dose: 40 mg Documented by: Temazepam (Restoril) 15 mg PO HS PRN PRN Reason: Insomnia Home Medications Medication Instructions Recorded Confirmed Type Ustekinumab [Stelara] 45 mg SQ Q56D 11/02/18 11/09/18 History predniSONE 20 mg PO DAILY PRN 11/09/18 11/09/18 History Allergies Allergy/AdvReac Type Severity Reaction Status Date / Time adalimumab [From Humira] Allergy Anaphylaxis Verified 11/09/18 09:30 azathioprine [From Imuran] Allergy Anaphylaxis Verified 11/09/18 09:30 infliximab [From Remicade] Allergy Anaphylaxis Verified 11/09/18 09:30 venom-honey bee Allergy Anaphylaxis Verified 11/09/18 09:30 Physical Exam Vitals: Vital Signs Temp Pulse Resp BP Pulse Ox 11/12/18 00:49 99.0 F 108 H 18 146/98 94 L 11/11/18 21:14 116 H 150/100 11/11/18 20:16 98.1 F 110 H 18 154/109 94 L 11/11/18 15:22 100 16 11/11/18 14:44 98.3 F 110 H 158/112 94 L 11/11/18 09:53 100 16 11/11/18 07:15 98.1 F 100 16 158/112 97 11/11/18 04:36 98.0 F 11/11/18 04:35 18 Intake and Output 11/11/18 11/11/18 11/12/18 14:59 22:59 06:59 Intake Total 800 Balance 800 Intake: Intake, IV Titration 800 Amount Piperacillin-Tazobactam 3 100 .375 gm In Sodium Chloride 0.9% 100 ml @ 25 mls/hr IVPB Q8H [facility] Rx#: [id number] Sodium Chloride 0.9% 1, 700 000 ml @ 60 mls/hr IV . [id number] [facility] Rx#:[id number] Other: Voiding Method Toilet Toilet # Voids 1 33-year-old male of thin build,is somewhat uncomfortable HEENT: Anicteric conjunctiva are pink and moist nasal mucosa grossly intact without significant lesions, there is no thrush. Neck: The neck is supple without significant lymphadenopathy or thyromegaly. Lungs: Good bilateral air entry without significant crackles or wheezing. There is no significant bronchial sounds. There is no egophony or dullness. Heart: Regular rate and rhythm with an audible S1-S2, no S3 no S4. There is no significant murmur click or rub, PMI was nondisplaced. Abdomen: Only few bowel sounds, abdomen is very distended, there is diffuse tenderness throughout the abdomen but mostly in the left lower quadrant with evidence of rigidity upon percussion. No organomegaly is noted. Extremities: The upper extremities have excellent pulses they are symmetric, no significant petechiae or telangiectasia. No splinter hemorrhages were noted. The lower extremities are free from significant edema. The peripheral pulses were 2+ and symmetric. Neuro: Awake alert oriented to person place and time. There are no acute new gross focal sensory motor deficits. Results CBC & Chem 7: 11/11/18 08:28 11/11/18 08:28 Labs: Abnormal Lab Results - Last 24 Hours (Table) 11/11/18 11/11/18 11/11/18 Range/Units 08:28 08:28 16:17 WBC 14.2 H (3.8-10.6) k/uL RBC 5.93 H (4.30-5.90) m/uL MCHC 30.7 L (31.0-37.0) g/dL Plt Count 468 H (150-450) k/uL Neutrophils # 12.8 H (1.3-7.7) k/uL Lymphocytes # 0.4 L (1.0-4.8) k/uL Glucose 133 H (74-99) mg/dL POC Glucose (mg/dL) 115 H (75-99) mg/dL Microbiology - Last 24 Hours (Table) 11/10/18 17:43 Blood Culture - Preliminary Blood No Growth after 24 hours 11/11/18 01:45 Urine Culture - Preliminary Urine,Voided Laboratory Results WBC 14.2 k/uL (3.8-10.6) H 11/11/18 08:28 RBC 5.93 m/uL (4.30-5.90) H 11/11/18 08:28 Hgb 15.2 gm/dL (13.0-17.5) 11/11/18 08:28 Hct 49.5 % (39.0-53.0) 11/11/18 08:28 MCV 83.5 fL (80.0-100.0) 11/11/18 08:28 MCH 25.6 pg (25.0-35.0) 11/11/18 08:28 MCHC 30.7 g/dL (31.0-37.0) L 11/11/18 08:28 RDW 13.4 % (11.5-15.5) 11/11/18 08:28 Plt Count 468 k/uL (150-450) H 11/11/18 08:28 Neutrophils % 90 % 11/11/18 08:28 Lymphocytes % 3 % 11/11/18 08:28 Monocytes % 7 % 11/11/18 08:28 Eosinophils % 0 % 11/11/18 08:28 Basophils % 0 % 11/11/18 08:28 Neutrophils # 12.8 k/uL (1.3-7.7) H 11/11/18 08:28 Lymphocytes # 0.4 k/uL (1.0-4.8) L 11/11/18 08:28 Monocytes # 1.0 k/uL (0-1.0) 11/11/18 08:28 Eosinophils # 0.0 k/uL (0-0.7) 11/11/18 08:28 Basophils # 0.0 k/uL (0-0.2) 11/11/18 08:28 Hypochromasia Slight 11/11/18 08:28 ESR 20 mm/hr (0-15) H 11/10/18 06:57 Sodium 137 mmol/L (137-145) 11/11/18 08:28 Potassium 5.1 mmol/L (3.5-5.1) 11/11/18 08:28 Chloride 99 mmol/L (98-107) 11/11/18 08:28 Carbon Dioxide 25 mmol/L (22-30) 11/11/18 08:28 Anion Gap 13 mmol/L 11/11/18 08:28 BUN 18 mg/dL (9-20) 11/11/18 08:28 Creatinine 0.95 mg/dL (0.66-1.25) 11/11/18 08:28 Est GFR (CKD-EPI)AfAm >90 (>60 ml/min/1.73 sqM) 11/11/18 08:28 Est GFR (CKD-EPI)NonAf >90 (>60 ml/min/1.73 sqM) 11/11/18 08:28 Glucose 133 mg/dL (74-99) H 11/11/18 08:28 POC Glucose (mg/dL) 115 mg/dL (75-99) H 11/11/18 16:17 POC Glu Corrosion Prevention Metal Sprayer ID Noam Jenkins 11/11/18 16:17 Lactic Ac Sepsis Rflx Y 11/09/18 08:29 Plasma Lactic Acid Reece 1.0 mmol/L (0.7-2.0) 11/09/18 11:46 Calcium 9.7 mg/dL (8.4-10.2) 11/11/18 08:28 Total Bilirubin 0.5 mg/dL (0.2-1.3) 11/09/18 07:28 AST 11 U/L (17-59) L 11/09/18 07:28 ALT 17 U/L (21-72) L 11/09/18 07:28 Alkaline Phosphatase 84 U/L (38-126) 11/09/18 07:28 C-Reactive Protein 137.3 mg/L (<10.0) H 11/10/18 06:57 Total Protein 6.8 g/dL (6.3-8.2) 11/09/18 07:28 Albumin 3.8 g/dL (3.5-5.0) 11/09/18 07:28 Amylase 51 U/L (30-110) 11/09/18 07:28 Lipase 119 U/L (23-300) 11/09/18 07:28 Urine Color Yellow 11/09/18 08:26 Urine Appearance Clear (Clear) 11/09/18 08:26 Urine pH 6.5 (5.0-8.0) 11/09/18 08:26 Ur Specific [place] 1.020 (1.001-1.035) 11/09/18 08:26 Urine Protein Trace (Negative) H 11/09/18 08:26 Urine Glucose (UA) Negative (Negative) 11/09/18 08:26 Urine Ketones Negative (Negative) 11/09/18 08:26 Urine Blood Negative (Negative) 11/09/18 08:26 Urine Nitrite Negative (Negative) 11/09/18 08:26 Urine Bilirubin Negative (Negative) 11/09/18 08:26 Urine Urobilinogen <2.0 mg/dL (<2.0) 11/09/18 08:26 Ur Leukocyte Esterase Negative (Negative) 11/09/18 08:26 Microbiology 11/10/18 17:43 Blood Blood Culture - Preliminary No Growth after 24 hours 11/11/18 01:45 Urine,Voided Urine Culture - Preliminary CT scan - abdomen: image reviewed (abscess sigmoid colon diffuse bowel thickening from Crohns) Assessment and Plan (1) Large bowel obstruction Current Visit: Yes Status: Acute Code(s): K56.609 - UNSP INTESTNL OBST, UNSP TO PARTIAL VERSUS COMPLETE OBST SNOMED Code(s): 923194361 (2) Crohn's disease of both small and large intestine with abscess Narrative/Plan: 33-year-old male with a long-standing history of Crohn's disease has been treated with multiple agents including recently biologicals that were not giving him good relief of his symptoms. He was changed to Stelara and was being monitored. He then had the relatively sudden onset of worsening pain associated with nausea and emesis and loose stool. He presented to the emergency center. Evaluations were performed in the computed tomography scan shows evidence of the abscess into the sigmoid colon area. He has been seen by the general surgeon his plans for the surgical intervention tomorrow which will likely be a drainage of the abscess and diverting colostomy because of the severity of the disease. Receiving intravenous antibiotic therapy this time was Zosyn. We'll add a neuraxis given his significant difficulties. Cultures for further help direct the course of therapy discharge but likely will go home on a several week course of intravenous antibiotic therapy with Invanz if he can tolerate. Pain control appears to be adequate. He will need nutritional assistance if he is not able to recover his oral protein intake soon. Leukocytosis is due to the acute abscess. Current Visit: Yes Status: Acute Code(s): K50.814 - CROHN'S DISEASE OF BOTH SMALL AND LARGE INTESTINE W ABSCESS SNOMED Code(s): 89655961
[2018-11-12] MEDS ORDERED: ANIDULAFUNGIN 200 MG in SODIUM CHLORIDE 0.9% 200 ML IVPB ONE (02:30)
[2018-11-12] MEDS: PIPERACILLIN-TAZOBACTAM 3.375 GM in SODIUM CHLORIDE 0.9% 100 ML IVPB SCH ×3 (02:36→20:47)
[2018-11-12] MEDS: DEXTROSE 5%-0.45% NACL 1,000 ML IV SCH ×2 (02:36→20:46)
[2018-11-12 08:19] LABS: Basophils % (A) 0 %; Eosinophils % (A) 0 %; HCT 42.8 % (39.0-53.0); HGB 13.6 gm/dL (13.0-17.5); Lymphocytes # (A) 0.4 k/uL (1.0-4.8); Lymphocytes % (A) 5 %; MCH 26.3 pg (25.0-35.0); MCHC 31.9 g/dL (31.0-37.0); MCV 82.7 fL (80.0-100.0); Mean Platelet Volume 7.1; Monocytes # (A) 0.6 k/uL (0-1.0); Monocytes % (A) 8 %; Neutrophils # (A) 6.5 k/uL (1.3-7.7); Neutrophils % (A) 86 %; Platelet Count 510 k/uL (150-450); RBC 5.17 m/uL (4.30-5.90); RDW 13.8 % (11.5-15.5); WBC 7.6 k/uL (3.8-10.6)
[2018-11-12 08:32] LABS: African American GFR (CKD) >90 (>60 ml/min/1.73 sqM); Anion Gap 6 mmol/L; Blood Urea Nitrogen 19 mg/dL (9-20); Calcium 8.7 mg/dL (8.4-10.2); Carbon Dioxide 30 mmol/L (22-30); Chloride 101 mmol/L (98-107); Glucose 126 mg/dL (74-99); Potassium 5.3 mmol/L (3.5-5.1); Sodium 137 mmol/L (137-145)
[2018-11-12] MEDS: HEPARIN SODIUM,PORCINE 5,000 UNIT/ML 1 ML VIAL SQ SCH ×2 (09:17→21:44)
[2018-11-12] MEDS: PANTOPRAZOLE 40 MG/10 ML VIAL IV SCH (09:18)
[2018-11-12 09:20] LABS: C Reactive Protein 128.7 mg/L (<10.0)
--- NOTE | 2018-11-12 12:43 | P.PN ---
Subjective Progress Note Date: 11/12/18 Principal diagnosis: Abdominal abscess Crohn's disease Passing flatus no BM. Scheduled for OR today. Afebrile. Abdominal pain still present. Objective - Vital Signs Vital signs: Vital Signs Temp 98.7 F 11/12/18 10:00 Pulse 103 H 11/12/18 10:35 Resp 18 11/12/18 10:35 BP 138/85 11/12/18 10:00 Pulse Ox 94 L 11/12/18 00:49 Intake & Output 11/11/18 11/12/18 11/12/18 18:59 06:59 18:59 Intake Total 800 1300 Output Total 100 Balance 800 1200 Intake: IV 375 Sodium Chloride 0.9% 1, 375 000 ml @ 60 mls/hr IV . [id number] [facility] Rx#:[id number] Intake, IV Titration 800 925 Amount Anidulafungin 200 mg In 200 Sodium Chloride 0.9% 200 ml @ 84 mls/hr IVPB ONCE ONE Rx#:[id number] Dextrose 5%-0.45% NaCl 1, 625 000 ml @ 125 mls/hr IV . Q8H [facility] Rx#:[id number] Piperacillin-Tazobactam 3 100 .375 gm In Sodium Chloride 0.9% 100 ml @ 25 mls/hr IVPB Q8H [facility] Rx#: [id number] Piperacillin-Tazobactam 3 100 .375 gm In Sodium Chloride 0.9% 100 ml @ 25 mls/hr IVPB Q8H [facility] Rx#: [id number] Sodium Chloride 0.9% 1, 700 000 ml @ 60 mls/hr IV . [id number] [facility] Rx#:[id number] Output: Gastric Drainage 100 Other: Voiding Method Toilet Toilet Toilet # Voids 1 - Exam General appearance: The patient is alert, oriented, in no acute distress. HET: Head is normocephalic and atraumatic. Pupils are equal and reactive. Oropharynx is clear without lesions. NG tube. Neck: Supple without lymphadenopathy. Trachea midline. Heart: S1 S2. Regular rate and rhythm. Lungs: No crackles or wheezes are heard. Abdomen: Soft, bloated tenderness left lower quadrant with bowel sounds. No peritoneal signs. No palpable organomegaly or masses. Extremities: Normal skin color and turgor. No cyanosis, rash, ulceration, clubbing, or edema. Radial and pedal pulses are 2/4 bilaterally. Neurological: No focal deficits. Strength and sensation are grossly intact. - Labs CBC & Chem 7: 11/13/18 05:35 11/13/18 05:35 Labs: Abnormal Lab Results - Last 24 Hours (Table) 11/11/18 11/12/18 11/12/18 Range/Units 16:17 07:27 07:27 Plt Count 510 H (150-450) k/uL Lymphocytes # 0.4 L (1.0-4.8) k/uL Potassium 5.3 H (3.5-5.1) mmol/L Glucose 126 H (74-99) mg/dL POC Glucose (mg/dL) 115 H (75-99) mg/dL C-Reactive Protein 128.7 H (<10.0) mg/L Microbiology - Last 24 Hours (Table) 11/10/18 17:43 Blood Culture - Preliminary Blood No Growth after 24 hours 11/11/18 01:45 Urine Culture - Preliminary Urine,Voided Assessment and Plan (1) Abdominal pain Narrative/Plan: 33-year-old male with a history Crohn's disease of the small and large bowel with colonic stricturing treated with biological therapy previously receiving Stelara prednisone taper presents with left lower quadrant abdominal pain leukocytosis SIRS possible sepsis. CT abdomen reported abscess left lateral aspect of the mid sigmoid colon with inflammatory changes consistent with inflammatory bowel disease. Current Visit: Yes Status: Acute Code(s): R10.9 - UNSPECIFIED ABDOMINAL PAIN SNOMED Code(s): 14006195 (2) Acute Crohn's disease Current Visit: Yes Status: Acute Code(s): K50.90 - CROHN'S DISEASE, UNSPECIFIED, WITHOUT COMPLICATIONS SNOMED Code(s): 98544047 Plan: 1. OR today. Continue present medical therapy. Assessment and plan a care discussed with Dr. Carmona
[2018-11-12] MEDS ORDERED: MIDAZOLAM (PF) 2 MG/2 ML VIAL IV ONE (14:26)
[2018-11-12] MEDS ORDERED: LACTATED RINGERS 1,000 ML IV ONE ×4 (14:35→17:14)
[2018-11-12] MEDS ORDERED: NALOXONE 0.4 MG/ML 1 ML VIAL IV PRN (14:49)
[2018-11-12] MEDS ORDERED: LIDOCAINE 1% INJ 10MG/ML (20 ML MDV) ONE (15:30)
[2018-11-12] MEDS ORDERED: PROPOFOL 10 MG/ML 20 ML VIAL IV ONE (15:30)
[2018-11-12] MEDS ORDERED: ESMOLOL 100 MG/10 ML VIAL ONE (15:30)
[2018-11-12] MEDS ORDERED: fentaNYL (PF) 50 MCG/ML 2 ML AMP ONE (15:30)
[2018-11-12] MEDS ORDERED: ROCURONIUM BROMIDE 10 MG/ML 10 ML VIAL IV ONE (15:30)
[2018-11-12] MEDS ORDERED: NEOSTIGMINE 1 MG/ML 10 ML VIAL ONE (15:30)
[2018-11-12] MEDS ORDERED: MORPHINE SULFATE 10 MG/ML SYRINGE ONE (15:30)
[2018-11-12] MEDS ORDERED: GLYCOPYRROLATE 0.2 MG/ML 2 ML VIAL ONE (15:30)
[2018-11-12] MEDS ORDERED: MIDAZOLAM 2 MG/2 ML VIAL ONE (15:30)
[2018-11-12] MEDS ORDERED: SUCCINYLCHOLINE CHLORIDE 100 MG/5 ML SYR IV ONE (15:30)
[2018-11-12] MEDS ORDERED: SODIUM CHLORIDE 0.9% 2,000 ML IV ONE (17:42)
--- NOTE | 2018-11-12 17:47 | P.OP ---
Date of Procedure: 11/12/18 Preoperative Diagnosis: Crohn's stricture sigmoid colon Sigmoid colon abscess Postoperative Diagnosis: Pelvic abscess Sigmoid colon stricture Crohn's disease Bowel obstruction Procedure(s) Performed: Exploratory laparotomy Drainage of abscess Sigmoid colectomy with end colostomy Anesthesia: JILLIAN Surgeon: Roshan Andres Estimated Blood Loss (ml): 50 Pathology: other (Sigmoid colon) Condition: stable Disposition: PACU Operative Findings: Sigmoid colon stricture creating bowel obstruction Description of Procedure: The patient's placed on the operating table in the supine position. He received general anesthesia. His abdomen was prepped and draped usual sterile fashion. The abdomen was entered through a low midline incision. The Bookwalterthe wound. The small bowel was grossly dilated. The colon appeared to be dilated a dilated. There appeared to be evidence of Crohn's disease in the colon. The small bowel was dilated however there was no evidence of any Crohn's disease of the small bowel. In the left lower quadrant there was a stricture of the sigmoid colon this was adherent to the lateral pelvic wall. There was abscess cavity behind the colon. The abscess cavity was cultured. The colon was reflected away from the lateral wall. At this point a suitable spot on the descending colon was found in the colon was transected using the GI stapler. Using the Enseal device the mesentery of the colon was divided. The colon was transected at the proximal rectum. The colon was transected using the contour stapler. Using 3-0 Prolene suture the rectum was tacked to the right pelvic wall. The white line of Toldt was divided and the proximal colon was mobilized. The abdomen was irrigated there is no bleeding seen. A suitable spot for the colostomy was chosen in the left quadrant left upper periumbilical area. Using electrocautery the skin was dissected and then a cruciate incision was made on the abdominal wall fascia and then the colon was brought up through the colostomy site. A PAULA drain is placed the pelvis and brought out through the right lower quadrant. The abdomen was irrigated is no bleeding seen the fascia was closed with looped #1 PDS suture. Skin was closed peyton. The colostomy then matured with 3-0 Vicryl suture. Patient top procedure well was sent to recovery in stable condition.
[2018-11-12] MEDS ORDERED: LABETALOL 5 MG/ML VIAL MDV IVP ONE (17:52)
--- NOTE | 2018-11-12 18:07 | PN ---
PROGRESS NOTE DATE OF SERVICE: 11/12/2018. This 33-year-old gentleman who was admitted with abdominal distention, also had abscess and suspected perforation also. The patient is evaluated by multiple consultants including Gastroenterology and Infectious disease. The patient is on steroids and IV antibiotics. Dr. Andres is following the patient closely for possible surgery today. The patient had a previous history of multiple biological treatments. The patient has NG tube in place at this time. PAST MEDICAL HISTORY: Reviewed. REVIEW OF SYSTEMS: CARDIOVASCULAR: No angina. RESPIRATORY: As mentioned earlier. GI no nausea or vomiting. : As mentioned earlier. CENTRAL NERVOUS SYSTEM: No numbness or weakness. CURRENT MEDICATIONS: Reviewed and include: 1. Xanax 0.5 t.i.d. 2. Anidulafungin 100 mg daily. 3. Catapres 0.1 daily. 4. Heparin 5000 subcu b.i.d. 5. Apresoline 10 mg IV q.4. 6. Dilaudid. 7. Solu-Medrol 20 IV q.8. 8. Narcan p.r.n. 9. Zofran 4 mg IV q.8h. 10.Protonix 40 mg daily. 11.Zosyn 3.375 IV q.8h. 12.Restoril 15 mg q.h.s. p.r.n. PHYSICAL EXAM: Patient is alert, oriented x3, pulse 103, blood pressure 130/84, respiration 18, temperature 98.7, pulse ox 95% on room air. HEENT: Conjunctivae normal. NECK: No jugular venous distention. CARDIOVASCULAR: S1, S2. RESPIRATIONS: Breath sounds diminished in the bases. Bilateral scattered rhonchi and crackles. ABDOMEN: Soft. Mild diffuse tenderness. Mild diffuse distention present. No guarding. No rigidity. No mass palpable. LEGS: No edema. No swelling. CENTRAL NERVOUS SYSTEM: No focal deficits. LAB STUDIES: WBC 7.3, hemoglobin is 13.6, platelets are 510. Sodium 137, potassium 5.3. ASSESSMENT: 1. Abdominal distention and pain with possible bowel obstruction secondary to sigmoid colon stricture, possibly; abscess in the left side of the abdomen, possibly perforated sigmoid colon. 2. Crohn's disease, acute exacerbation. 3. Increased WBC. 4. Increased plasma lactic acid. 5. Increased creatinine, possibly from mild acute renal failure possibly present on admission, prerenal renal failure from acute tubular necrosis. 6. Hyponatremia. 7. Elevated CRP to 137. 8. Gastrointestinal bleed history. 9. History of appendectomy. 10.History of hernia surgery. 11.FULL CODE. RECOMMENDATIONS AND DISCUSSION: In this 33-year-old gentleman who presented with multiple complex medical issues, we will monitor the patient closely. Continue the current medications, broad-spectrum IV antibiotics and steroids. Infectious Disease, gastroenterology input appreciated. Follow closely with surgery. Dr. Andres performed the surgery today and continue to monitor. Guarded prognosis. MMODL / IJN: [id number] /
[2018-11-12] MEDS: LACTATED RINGERS 1,000 ML IV SCH (22:38)
--- NOTE | 2018-11-12 23:15 | P.PN ---
Subjective Progress Note Date: 11/12/18 33-year-old male with a long-standing history of Crohn's disease with many complications has been treated with multiple agents as of late however failed multiple types of biological therapies and is now on Stelara. He thought he was having some relatively good response to this current course of therapy until he started developing increasing amounts of abdominal pain associated with nausea and emesis and loose stool. He felt very poorly and had fever and chills and constantly presents to the emergency center. Imaging studies are performed and surgical consult and gastroenterology consult were obtained. The patient is without evidence of significant abscess in consult was requested. The patient has NG tube in place which relates has helped him with some of the nausea and emesis or relieving symptoms abdominal pain. Pain medications are helping. 11/12/2018 the patient is status post surgery which is the colonic resection and drainage of the pelvic abscess. He is mostly comfortable with his epidural in place and is not comfortable with the Davalos catheter but understands its im portance. No further fever chill. No hematemesis melena or hematochezia. Objective - Vital Signs Vital signs: Vital Signs Temp 96.9 F L 11/12/18 17:29 Pulse 114 H 11/12/18 20:35 Resp 16 11/12/18 18:15 BP 138/89 11/12/18 20:35 Pulse Ox 92 L 11/12/18 20:35 Intake & Output 11/12/18 11/12/18 11/13/18 06:59 18:59 06:59 Intake Total 1300 2000 Output Total 100 375 Balance 1200 1625 Weight 78.925 kg Intake: IV 375 2000 Sodium Chloride 0.9% 1, 375 000 ml @ 60 mls/hr IV . [id number] [facility] Rx#:[id number] Intake, IV Titration 925 Amount Anidulafungin 200 mg In 200 Sodium Chloride 0.9% 200 ml @ 84 mls/hr IVPB ONCE ONE Rx#:[id number] Dextrose 5%-0.45% NaCl 1, 625 000 ml @ 125 mls/hr IV . Q8H [facility] Rx#:[id number] Piperacillin-Tazobactam 3 100 .375 gm In Sodium Chloride 0.9% 100 ml @ 25 mls/hr IVPB Q8H [facility] Rx#: [id number] Output: Gastric Drainage 100 Urine 275 Estimated Blood Loss 100 Other: Voiding Method Toilet Toilet # Voids 1 - Exam 33-year-old male of thin build,is somewhat uncomfortable HEENT: Anicteric conjunctiva are pink and moist nasal mucosa grossly intact without significant lesions, there is no thrush. Neck: The neck is supple without significant lymphadenopathy or thyromegaly. Lungs: Good bilateral air entry without significant crackles or wheezing. There is no significant bronchial sounds. There is no egophony or dullness. Heart: Regular rate and rhythm with an audible S1-S2, no S3 no S4. There is no significant murmur click or rub, PMI was nondisplaced. Abdomen: No distinct bowel sounds, patient is postoperative surgical dressing is in place with binder and colostomy Extremities: The upper extremities have excellent pulses they are symmetric, no significant petechiae or telangiectasia. No splinter hemorrhages were noted. The lower extremities are free from significant edema. The peripheral pulses were 2+ and symmetric. Neuro: Awake alert oriented to person place and time. There are no acute new gross focal sensory motor deficits. - Labs CBC & Chem 7: 11/12/18 07:27 11/12/18 21:06 Labs: Abnormal Lab Results - Last 24 Hours (Table) 11/12/18 11/12/18 11/12/18 Range/Units 07:27 07:27 21:06 Plt Count 510 H (150-450) k/uL Lymphocytes # 0.4 L (1.0-4.8) k/uL Potassium 5.3 H 5.9 H (3.5-5.1) mmol/L Glucose 126 H (74-99) mg/dL C-Reactive Protein 128.7 H (<10.0) mg/L Microbiology - Last 24 Hours (Table) 11/12/18 16:26 Wound Culture - Preliminary Hip - Left 11/12/18 16:26 Anaerobic Culture - Preliminary Hip - Left 11/10/18 17:43 Blood Culture - Preliminary Blood No Growth after 48 hours 11/11/18 01:45 Urine Culture - Final Urine,Voided Laboratory Results WBC 7.6 k/uL (3.8-10.6) 11/12/18 07:27 RBC 5.17 m/uL (4.30-5.90) 11/12/18 07:27 Hgb 13.6 gm/dL (13.0-17.5) 11/12/18 07:27 Hct 42.8 % (39.0-53.0) 11/12/18 07:27 MCV 82.7 fL (80.0-100.0) 11/12/18 07:27 MCH 26.3 pg (25.0-35.0) 11/12/18 07:27 MCHC 31.9 g/dL (31.0-37.0) 11/12/18 07:27 RDW 13.8 % (11.5-15.5) 11/12/18 07:27 Plt Count 510 k/uL (150-450) H 11/12/18 07:27 Neutrophils % 86 % 11/12/18 07:27 Lymphocytes % 5 % 11/12/18 07:27 Monocytes % 8 % 11/12/18 07:27 Eosinophils % 0 % 11/12/18 07:27 Basophils % 0 % 11/12/18 07:27 Neutrophils # 6.5 k/uL (1.3-7.7) 11/12/18 07:27 Lymphocytes # 0.4 k/uL (1.0-4.8) L 11/12/18 07:27 Monocytes # 0.6 k/uL (0-1.0) 11/12/18 07:27 Eosinophils # 0.0 k/uL (0-0.7) 11/12/18 07:27 Basophils # 0.0 k/uL (0-0.2) 11/12/18 07:27 Hypochromasia Slight 11/11/18 08:28 ESR 20 mm/hr (0-15) H 11/10/18 06:57 Sodium 137 mmol/L (137-145) 11/12/18 07:27 Potassium 5.9 mmol/L (3.5-5.1) H 11/12/18 21:06 Chloride 101 mmol/L (98-107) 11/12/18 07:27 Carbon Dioxide 30 mmol/L (22-30) 11/12/18 07:27 Anion Gap 6 mmol/L 11/12/18 07:27 BUN 19 mg/dL (9-20) 11/12/18 07:27 Creatinine 0.94 mg/dL (0.66-1.25) 11/12/18 07:27 Est GFR (CKD-EPI)AfAm >90 (>60 ml/min/1.73 sqM) 11/12/18 07:27 Est GFR (CKD-EPI)NonAf >90 (>60 ml/min/1.73 sqM) 11/12/18 07:27 Glucose 126 mg/dL (74-99) H 11/12/18 07:27 POC Glucose (mg/dL) 115 mg/dL (75-99) H 11/11/18 16:17 POC Glu Supervisor Pleating ID Noam Jenkins 11/11/18 16:17 Lactic Ac Sepsis Rflx Y 11/09/18 08:29 Plasma Lactic Acid Reece 1.0 mmol/L (0.7-2.0) 11/09/18 11:46 Calcium 8.7 mg/dL (8.4-10.2) 11/12/18 07:27 Total Bilirubin 0.5 mg/dL (0.2-1.3) 11/09/18 07:28 AST 11 U/L (17-59) L 11/09/18 07:28 ALT 17 U/L (21-72) L 11/09/18 07:28 Alkaline Phosphatase 84 U/L (38-126) 11/09/18 07:28 C-Reactive Protein 128.7 mg/L (<10.0) H 11/12/18 07:27 Total Protein 6.8 g/dL (6.3-8.2) 11/09/18 07:28 Albumin 3.8 g/dL (3.5-5.0) 11/09/18 07:28 Amylase 51 U/L (30-110) 11/09/18 07:28 Lipase 119 U/L (23-300) 11/09/18 07:28 Urine Color Yellow 11/09/18 08:26 Urine Appearance Clear (Clear) 11/09/18 08:26 Urine pH 6.5 (5.0-8.0) 11/09/18 08:26 Ur Specific [place] 1.020 (1.001-1.035) 11/09/18 08:26 Urine Protein Trace (Negative) H 11/09/18 08:26 Urine Glucose (UA) Negative (Negative) 11/09/18 08:26 Urine Ketones Negative (Negative) 11/09/18 08:26 Urine Blood Negative (Negative) 11/09/18 08:26 Urine Nitrite Negative (Negative) 11/09/18 08:26 Urine Bilirubin Negative (Negative) 11/09/18 08:26 Urine Urobilinogen <2.0 mg/dL (<2.0) 11/09/18 08:26 Ur Leukocyte Esterase Negative (Negative) 11/09/18 08:26 Microbiology 11/12/18 16:26 Hip - Left Wound Culture - Preliminary 11/12/18 16:26 Hip - Left Anaerobic Culture - Preliminary 11/10/18 17:43 Blood Blood Culture - Preliminary No Growth after 48 hours 11/11/18 01:45 Urine,Voided Urine Culture - Final Assessment and Plan (1) Large bowel obstruction Current Visit: Yes Status: Acute Code(s): K56.609 - UNSP INTESTNL OBST, UNSP TO PARTIAL VERSUS COMPLETE OBST SNOMED Code(s): 604375878 (2) Crohn's disease of both small and large intestine with abscess Narrative/Plan: 33-year-old male with a long-standing history of Crohn's disease has been treated with multiple agents including recently biologicals that were not giving him good relief of his symptoms. He was changed to Stelara and was being monitored. He then had the relatively sudden onset of worsening pain associated with nausea and emesis and loose stool. He presented to the emergency center. Evaluations were performed in the computed tomography scan shows evidence of the abscess into the sigmoid colon area. He has been seen by the general surgeon his plans for the surgical intervention tomorrow which will likely be a drainage of the abscess and diverting colostomy because of the severity of the disease. Receiving intravenous antibiotic therapy this time was Zosyn. We'll add a neuraxis given his significant difficulties. Cultures for further help direct the course of therapy discharge but likely will go home on a several week course of intravenous antibiotic therapy with Invanz if he can tolerate. Pain control appears to be adequate. He will need nutritional assistance if he is not able to recover his oral protein intake soon. Leukocytosis is due to the acute abscess. 11/12/2018 patient is status post the colectomy with ostomy placement and drainage of his pelvic abscess. Pain control is adequate at this point in time with the epidural any other pain medications that he is receiving. His white count is improved to 7.6. His fluids and increase to 510 is likely reactive from his current infectious process. Cultures are currently in process and he is without other acute change. If his gastrointestinal recovery is protracted may need temporary nutritional support. Current Visit: Yes Status: Acute Code(s): K50.814 - CROHN'S DISEASE OF BOTH SMALL AND LARGE INTESTINE W ABSCESS SNOMED Code(s): 03929813
[2018-11-13] MEDS ORDERED: SODIUM CHLORIDE 0.9% 1,000 ML IV ONE (00:09)
[2018-11-13 00:49] LABS: Basophils % (A) 0 %; Eosinophils # (A) 0.1 k/uL (0-0.7); Eosinophils % (A) 1 %; HCT 38.6 % (39.0-53.0); HGB 12.3 gm/dL (13.0-17.5); Lymphocytes # (A) 0.6 k/uL (1.0-4.8); Lymphocytes % (A) 4 %; MCH 26.4 pg (25.0-35.0); MCHC 31.9 g/dL (31.0-37.0); MCV 82.6 fL (80.0-100.0); Mean Platelet Volume 6.7; Monocytes # (A) 0.7 k/uL (0-1.0); Monocytes % (A) 5 %; Neutrophils # (A) 13.7 k/uL (1.3-7.7); Neutrophils % (A) 90 %; Platelet Count 494 k/uL (150-450); RBC 4.67 m/uL (4.30-5.90); RDW 13.7 % (11.5-15.5); WBC 15.2 k/uL (3.8-10.6)
[2018-11-13 01:05] LABS: African American GFR (CKD) >90 (>60 ml/min/1.73 sqM); Anion Gap 4 mmol/L; Blood Urea Nitrogen 20 mg/dL (9-20); Calcium 8.1 mg/dL (8.4-10.2); Carbon Dioxide 27 mmol/L (22-30); Chloride 104 mmol/L (98-107); Glucose 106 mg/dL (74-99); Potassium 4.8 mmol/L (3.5-5.1); Sodium 135 mmol/L (137-145)
[2018-11-13 01:46] LABS: Glucose,Whole Blood 89 mg/dL (75-99)
[2018-11-13] MEDS ORDERED: ACETAMINOPHEN IV (For NPO) 1,000 MG in EMPTY BAG 1 BAG IVPB ONE (02:14)
[2018-11-13] MEDS: PIPERACILLIN-TAZOBACTAM 3.375 GM in SODIUM CHLORIDE 0.9% 100 ML IVPB SCH ×3 (02:44→18:14)
[2018-11-13] MEDS: methylPREDNISolone SOD SUCCI 40 MG/ML 1 ML VIAL IV SCH ×4 (02:44→23:39)
[2018-11-13] MEDS: ANIDULAFUNGIN 100 MG in SODIUM CHLORIDE 0.9% 100 ML IVPB SCH (02:44)
[2018-11-13] MEDS: LACTATED RINGERS 1,000 ML IV SCH ×3 (05:12→18:14)
[2018-11-13 05:53] LABS: Basophils % (A) 0 %; Eosinophils # (A) 0.1 k/uL (0-0.7); Eosinophils % (A) 0 %; HCT 38.1 % (39.0-53.0); Hypochromasia Slight; Lymphocytes # (A) 0.3 k/uL (1.0-4.8); Lymphocytes % (A) 2 %; MCH 26.2 pg (25.0-35.0); MCHC 31.4 g/dL (31.0-37.0); MCV 83.5 fL (80.0-100.0); Mean Platelet Volume 6.9; Monocytes # (A) 0.6 k/uL (0-1.0); Monocytes % (A) 5 %; Neutrophils # (A) 11.9 k/uL (1.3-7.7); Neutrophils % (A) 92 %; Platelet Count 439 k/uL (150-450); RBC 4.56 m/uL (4.30-5.90); WBC 12.9 k/uL (3.8-10.6)
[2018-11-13 06:16] LABS: African American GFR (CKD) >90 (>60 ml/min/1.73 sqM); Anion Gap 3 mmol/L; Blood Urea Nitrogen 19 mg/dL (9-20); Calcium 8.1 mg/dL (8.4-10.2); Carbon Dioxide 27 mmol/L (22-30); Chloride 104 mmol/L (98-107); Glucose 114 mg/dL (74-99); Potassium 5.3 mmol/L (3.5-5.1); Sodium 134 mmol/L (137-145)
[2018-11-13 06:34] LABS: C Reactive Protein 140.8 mg/L (<10.0)
[2018-11-13] MEDS: ROPIVACAINE 250 MG, HYDROMORPHONE (PF) 5 MG in SODIUM CHLORIDE 0.9% 200 ML EPIDURAL PRN ×2 (07:15→10:29)
[2018-11-13] MEDS: PANTOPRAZOLE 40 MG/10 ML VIAL IV SCH (08:10)
[2018-11-13] MEDS: HEPARIN SODIUM,PORCINE 5,000 UNIT/ML 1 ML VIAL SQ SCH ×2 (08:10→20:24)
--- NOTE | 2018-11-13 12:10 | P.CNPUL ---
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 However because of side effects, patient was placed stelara. Patient was recently inpatient for abdominal pain related to Crohn's disease and distal large bowel obstruction with stricture of the proximal sigmoid colon. Patient was discharged last week, with improvement in his abdominal pain and he was on prednisone taper. Patient has been developing increased abdominal pain, nausea vomiting without fever or hematemesis. CT of the abdomen on this admission showed inflammatory wall thickening of the entire large bowel more significant involvement in the mid sigmoid colon. There was abscess in the lateral aspect of the mid sigmoid colon and free air noted in the pelvis increased compared to previous examination. Previous colonoscopy and biopsies showed active ileitis and chronic active transverse colitis with ulceration. On 11/12/2018, patient underwent exploratory laparotomy, drainage of abscess, sigmoid colectomy with end colostomy. Patient had a relatively uneventful intraoperative course, and he was sent to a regular medical floor. Apparently last night, the patient was becoming more tachycardic, blood pressure was marginal, patient was noted to be diaphoretic, has arrangements were made to transfer the patient to the ICU. Patient is already on antibiotics as per Dr. Westbrook on the case, I recommended mostly fluid boluses and increase his main IV fluid. Overnight, the patient responded well to fluids, upon my evaluation this morning, patient is doing great. Denies any pain, he does have epidural catheter in place for pain control, denies any shortness of breath, no cough, no wheezing, denies any nausea vomiting or abdominal pain or diarrhea. His WBC count today is 4.9 in electronic are normal renal profile is normal. Patient is receiving methylprednisolone 25 mg IV push every 8 hours. Review of Systems Constitutional: No fevers, no chills, no weight loss. HEENT: Denies sore throat, denies any earache, denies any diplopia. Denies any dizziness but Cardiac: Denies chest pain, amputations, denies syncope. Respiratory: Denies cough wheezing or shortness of breath. Denies hemoptysis. Gastrointestinal: Refer to HPI,. Genitourinary: Denies dysuria frequency urgency hematuria Musculoskeletal: Denies arthralgia or muscle aches or pains. Neurologic: Denies headaches blurred vision dizziness syncope. Endocrine: Denies heat or cold intolerance, denies any symptoms to suggest active diabetes. Skin: Denies any rashes or pruritus. Psychiatric: Denies any symptoms of active depression. Hematologic: Denies any clotting bleeding or bruising. Past Medical History Past Medical History: GI Bleed Additional Past Medical History / Comment(s): CROHNS last 9-10 years History of Any Multi-Drug Resistant Organisms: None Reported Past Surgical History: Appendectomy, Hernia Repair Additional Past Surgical History / Comment(s): COLONOSCOPIES/. EYE SURG TO CORRECT LAZY EYE, Past Anesthesia/Blood Transfusion Reactions: No Reported Reaction Past Psychological History: No Psychological Hx Reported Additional Psychological History / Comment(s): single. no tobacco or alcohol use. no animal exposures. no travel. no experience Smoking Status: Never smoker Past Alcohol Use History: Occasional Past Drug Use History: None Reported - Past Family History Mother Family Medical History: No Reported History Medications and Allergies Home Medications Medication Instructions Recorded Confirmed Type Ustekinumab [Stelara] 45 mg SQ Q56D 11/02/18 11/09/18 History predniSONE 20 mg PO DAILY PRN 11/09/18 11/09/18 History Allergies Allergy/AdvReac Type Severity Reaction Status Date / Time adalimumab [From Humira] Allergy Anaphylaxis Verified 11/09/18 09:30 azathioprine [From Imuran] Allergy Anaphylaxis Verified 11/09/18 09:30 infliximab [From Remicade] Allergy Anaphylaxis Verified 11/09/18 09:30 venom-honey bee Allergy Anaphylaxis Verified 11/09/18 09:30 Physical Exam Vitals: Vital Signs Temp Pulse Pulse Resp BP BP BP 11/13/18 11:40 12 11/13/18 11:00 91 13 138/83 11/13/18 10:00 84 12 138/82 11/13/18 09:00 107 H 18 131/83 11/13/18 08:00 99.8 F H 95 12 139/83 11/13/18 07:00 107 H 11 L 142/85 11/13/18 06:00 113 H 14 134/80 11/13/18 05:00 122 H 12 127/76 11/13/18 04:00 100.7 F H 120 H 12 138/88 11/13/18 03:00 123 H 14 138/88 11/13/18 02:10 126 H 11 L 138/88 11/13/18 02:00 129 H 10 L 138/88 11/13/18 01:50 100.9 F H 134 H 14 138/88 11/13/18 01:44 137 H 16 11/13/18 01:05 102 F H 142 H 14 128/84 11/13/18 00:30 142 H 11/12/18 23:30 101.1 F H 142 H 14 134/94 11/12/18 21:30 125 H 14 140/90 11/12/18 20:35 114 H 138/89 11/12/18 20:20 109 H 138/80 11/12/18 20:05 108 H 131/85 11/12/18 19:50 105 H 142/88 11/12/18 19:35 101 H 149/93 11/12/18 19:20 106 H 138/90 11/12/18 19:05 101 H 137/91 11/12/18 18:50 95 147/93 11/12/18 18:35 95 161/106 11/12/18 18:15 94 16 143/93 11/12/18 17:58 94 16 149/99 11/12/18 17:45 122 H 16 168/107 11/12/18 17:29 96.9 F L 123 H 10 L 170/109 11/12/18 14:14 98.4 F 87 16 159/92 Pulse Ox 11/13/18 11:40 11/13/18 11:00 96 11/13/18 10:00 96 11/13/18 09:00 95 11/13/18 08:00 95 11/13/18 07:00 96 11/13/18 06:00 95 11/13/18 05:00 95 11/13/18 04:00 95 11/13/18 03:00 96 11/13/18 02:10 97 11/13/18 02:00 96 11/13/18 01:50 96 11/13/18 01:44 96 11/13/18 01:05 96 11/13/18 00:30 11/12/18 23:30 97 11/12/18 21:30 89 L 11/12/18 20:35 92 L 11/12/18 20:20 92 L 11/12/18 20:05 90 L 11/12/18 19:50 93 L 11/12/18 19:35 96 11/12/18 19:20 92 L 11/12/18 19:05 91 L 11/12/18 18:50 94 L 11/12/18 18:35 96 11/12/18 18:15 93 L 11/12/18 17:58 100 11/12/18 17:45 100 11/12/18 17:29 97 11/12/18 14:14 95 Intake and Output 11/12/18 11/13/18 11/13/18 22:59 06:59 14:59 Intake Total 1600 960 908.8 Output Total 445 280 650 Balance 1155 680 258.8 Intake: IV 1600 960 870 0.9 500ml @10 mls/hr 60 20 ACETAMINOPHEN IV (For NPO 100 ) 1,000 mg In Empty Bag 1 bag @ 400 mls/hr IVPB ONCE ONE Rx#:[id number] Anidulafungin 100 mg In 100 Sodium Chloride 0.9% 100 ml @ 84 mls/hr IVPB Q24H [facility] Rx#:[id number] Lactated Ringers 1,000 ml 600 750 @ 150 mls/hr IV .Q6H40M [facility] Rx#:[id number] Piperacillin-Tazobactam 3 100 100 .375 gm In Sodium Chloride 0.9% 100 ml @ 25 mls/hr IVPB Q8H [facility] Rx#: [id number] Intake, IV Titration 38.8 Amount Ropivacaine 250 mg 38.8 Hydromorphone (Pf) 5 mg In Sodium Chloride 0.9% 200 ml @ Per Protocol EPIDURAL .Q0M PRN Rx#: [id number] Output: Drainage 70 50 Right Abdomen 70 50 Urine 275 280 600 Estimated Blood Loss 100 Other: Voiding Method Indwelling Catheter Indwelling Catheter Indwelling Catheter # Voids 1 Weight 86.6 kg Physical Exam: Revealed a 33-year-old white male, pleasant, in no distress. Head: Atraumatic, normocephalic, HEENT:[Neck is supple.] [No neck masses.] [No thyromegaly.] [No JVD.] Throat is clear, moist mucous membranes noted. Chest: [Clear throughout, no crackles, no rhonchi, no wheezes.] Cardiac Exam: [Normal S1 and S2, no S3 gallop, no murmur.] Abdomen: [Postsurgical, soft, surgical site is clean, surgical dressing is noted to be dry. colostomy is intact, PAULA drain is noted. No tenderness no rebound no guarding, diminished bowel sounds.] Extremities: [No clubbing, no edema, no cyanosis.] Neurological Exam: [No focal neurologic deficit.] Alert and oriented 3. Psychiatric: Normal mood, affect and normal mental status examination. Skin: No rashes. Lymphatics: No lymphadenopathy. Results - Laboratory Findings CBC and BMP: 11/13/18 05:35 11/13/18 05:35 Abnormal lab findings: Abnormal Labs 11/09/18 11/09/18 11/09/18 07:28 07:28 07:28 WBC 11.9 H RBC Hgb Hct MCHC Plt Count 462 H Neutrophils # 9.5 H Lymphocytes # ESR Sodium Potassium Carbon Dioxide 33 H Creatinine 1.29 H Glucose POC Glucose (mg/dL) Plasma Lactic Acid Reece 2.1 H* Calcium AST 11 L ALT 17 L C-Reactive Protein Urine Protein 11/09/18 11/10/18 11/10/18 08:26 06:57 06:57 WBC 11.1 H RBC Hgb Hct MCHC 30.5 L Plt Count Neutrophils # 9.3 H Lymphocytes # 0.9 L ESR Sodium 136 L Potassium Carbon Dioxide Creatinine Glucose 72 L POC Glucose (mg/dL) Plasma Lactic Acid Reece Calcium AST ALT C-Reactive Protein Urine Protein Trace H 11/10/18 11/10/18 11/11/18 06:57 06:57 08:28 WBC 14.2 H RBC 5.93 H Hgb Hct MCHC 30.7 L Plt Count 468 H Neutrophils # 12.8 H Lymphocytes # 0.4 L ESR 20 H Sodium Potassium Carbon Dioxide Creatinine Glucose POC Glucose (mg/dL) Plasma Lactic Acid Reece Calcium AST ALT C-Reactive Protein 137.3 H Urine Protein 11/11/18 11/11/18 11/12/18 08:28 16:17 07:27 WBC RBC Hgb Hct MCHC Plt Count 510 H Neutrophils # Lymphocytes # 0.4 L ESR Sodium Potassium Carbon Dioxide Creatinine Glucose 133 H POC Glucose (mg/dL) 115 H Plasma Lactic Acid Reece Calcium AST ALT C-Reactive Protein Urine Protein 11/12/18 11/12/18 11/13/18 07:27 21:06 00:36 WBC 15.2 H RBC Hgb 12.3 L Hct 38.6 L MCHC Plt Count 494 H Neutrophils # 13.7 H Lymphocytes # 0.6 L ESR Sodium Potassium 5.3 H 5.9 H Carbon Dioxide Creatinine Glucose 126 H POC Glucose (mg/dL) Plasma Lactic Acid Reece Calcium AST ALT C-Reactive Protein 128.7 H Urine Protein 11/13/18 11/13/18 11/13/18 00:36 05:35 05:35 WBC 12.9 H RBC Hgb 12.0 L Hct 38.1 L MCHC Plt Count Neutrophils # 11.9 H Lymphocytes # 0.3 L ESR Sodium 135 L 134 L Potassium 5.3 H Carbon Dioxide Creatinine Glucose 106 H 114 H POC Glucose (mg/dL) Plasma Lactic Acid Reece Calcium 8.1 L 8.1 L AST ALT C-Reactive Protein 140.8 H Urine Protein Assessment and Plan Assessment: Impression: 1 status post exploratory laparotomy, abdominal abscess drainage, and sigmoid colectomy with colostomy, postoperative day #1. 2 postoperative tachycardia and hypotension, responded well to fluids most likely secondary to hypovolemia, possibility of abdominal sepsis is considered, 3 large bowel obstruction secondary to Crohn's disease 4 Crohn's disease with both small and large bowel abscesses. 5 abdominal sepsis secondary to Crohn's disease. Recommendation: Continue IV fluids, continue antibiotics as per infectious disease on the case, continue methylprednisolone, continue epidural for pain control, continue GI and DVT prophylaxis, we will continue to follow closely. I feel the patient will likely be transferred out of the ICU within the next 24 hours. Presently the patient is hemodynamically stable, and in no form of distress, tachycardia responded well to fluids mostly. Time with Patient: Greater than 30
--- NOTE | 2018-11-13 13:42 | P.PN ---
Progress Note - Text Anesthesia POD 1. Status Post Sigmoid colectomy with end colostomy under general endotracheal anesthesia with an epidrual catheter placed at [L3] for post surgical pain releif. VAS ([0, 2]) with Ropivicaine 0.1 % and Dilaudid 20 mcg / cc running at 12 cc / hr. Lower extremity strength (3/4). [] sedation. Some serosanguineous leakage at the site of her no evidence of inflammation. Plan to decrease the rate to 10 mL per hour light of the patient's excellent pain relief and some degree of lower extremity weakness. This may result in a decrease in serosanguineous leakage.
--- NOTE | 2018-11-13 14:52 | P.PN ---
Subjective Progress Note Date: 11/13/18 Principal diagnosis: Abdominal abscess Crohn's disease Status post exploratory laparotomy drainage of abscess sigmoid colectomy with end colostomy. Pain controlled. T-max 102. White count 12.9. Hemoglobin 12. C-reactive protein 140.8. Objective - Vital Signs Vital signs: Vital Signs Temp 99 F 11/13/18 12:00 Pulse 85 11/13/18 13:00 Resp 12 11/13/18 13:00 BP 141/87 11/13/18 13:00 Pulse Ox 96 11/13/18 13:00 Intake & Output 11/12/18 11/13/18 11/13/18 18:59 06:59 18:59 Intake Total 1999 960 1233.0 Output Total 375 350 925 Balance 1625 610 308.0 Weight 78.925 kg 86.6 kg Intake: IV 1999 960 1170 0.9 500ml @10 mls/hr 60 20 ACETAMINOPHEN IV (For NPO 100 ) 1,000 mg In Empty Bag 1 bag @ 400 mls/hr IVPB ONCE ONE Rx#:[id number] Anidulafungin 100 mg In 100 Sodium Chloride 0.9% 100 ml @ 84 mls/hr IVPB Q24H [facility] Rx#:[id number] Lactated Ringers 1,000 ml 600 1050 @ 150 mls/hr IV .Q6H40M [facility] Rx#:[id number] Piperacillin-Tazobactam 3 100 100 .375 gm In Sodium Chloride 0.9% 100 ml @ 25 mls/hr IVPB Q8H [facility] Rx#: [id number] Intake, IV Titration 63.0 Amount Ropivacaine 250 mg 63.0 Hydromorphone (Pf) 5 mg In Sodium Chloride 0.9% 200 ml @ Per Protocol EPIDURAL .Q0M PRN Rx#: [id number] Output: Drainage 70 100 Left Colostomy 40 Right Abdomen 70 60 Urine 275 280 825 Estimated Blood Loss 100 Other: Voiding Method Toilet Indwelling Catheter Indwelling Catheter # Voids 1 - Exam General appearance: The patient is alert, oriented, in no acute distress. HET: Head is normocephalic and atraumatic. Pupils are equal and reactive. Oropharynx is clear without lesions. NG tube. Neck: Supple without lymphadenopathy. Trachea midline. Heart: S1 S2. Regular rate and rhythm. Lungs: No crackles or wheezes are heard. Abdomen: Soft, midline dressing was old drainage, ostomy pink viable with air a nd bag. No peritoneal signs. No palpable organomegaly or masses. Extremities: Davalos with clear faina urine. Normal skin color and turgor. No cyanosis, rash, ulceration, clubbing, or edema. Radial and pedal pulses are 2/4 bilaterally. Neurological: No focal deficits. Strength and sensation are grossly intact. - Labs CBC & Chem 7: 11/13/18 05:35 11/13/18 05:35 Labs: Abnormal Lab Results - Last 24 Hours (Table) 11/12/18 11/13/18 11/13/18 Range/Units 21:06 00:36 00:36 WBC 15.2 H (3.8-10.6) k/uL Hgb 12.3 L (13.0-17.5) gm/dL Hct 38.6 L (39.0-53.0) % Plt Count 494 H (150-450) k/uL Neutrophils # 13.7 H (1.3-7.7) k/uL Lymphocytes # 0.6 L (1.0-4.8) k/uL Sodium 135 L (137-145) mmol/L Potassium 5.9 H (3.5-5.1) mmol/L Glucose 106 H (74-99) mg/dL Calcium 8.1 L (8.4-10.2) mg/dL C-Reactive Protein (<10.0) mg/L 11/13/18 11/13/18 Range/Units 05:35 05:35 WBC 12.9 H (3.8-10.6) k/uL Hgb 12.0 L (13.0-17.5) gm/dL Hct 38.1 L (39.0-53.0) % Plt Count (150-450) k/uL Neutrophils # 11.9 H (1.3-7.7) k/uL Lymphocytes # 0.3 L (1.0-4.8) k/uL Sodium 134 L (137-145) mmol/L Potassium 5.3 H (3.5-5.1) mmol/L Glucose 114 H (74-99) mg/dL Calcium 8.1 L (8.4-10.2) mg/dL C-Reactive Protein 140.8 H (<10.0) mg/L Microbiology - Last 24 Hours (Table) 11/12/18 16:26 Gram Stain - Preliminary Hip - Left Wound Culture - Preliminary 11/12/18 16:26 Anaerobic Culture - Preliminary Hip - Left 11/10/18 17:43 Blood Culture - Preliminary Blood No Growth after 48 hours 11/11/18 01:45 Urine Culture - Final Urine,Voided Assessment and Plan (1) Abdominal pain Narrative/Plan: 33-year-old male with a history Crohn's disease of the small and large bowel with colonic stricturing treated with biological therapy previously receiving Stelara prednisone taper presents with left lower quadrant abdominal pain leukocytosis SIRS possible sepsis. CT abdomen reported abscess left lateral aspect of the mid sigmoid colon with inflammatory changes consistent with inflammatory bowel disease. Status post exploratory laparotomy drainage of abscess sigmoid colectomy end colostomy Current Visit: Yes Status: Acute Code(s): R10.9 - UNSPECIFIED ABDOMINAL PAIN SNOMED Code(s): 13086621 (2) Acute Crohn's disease Current Visit: Yes Status: Acute Code(s): K50.90 - CROHN'S DISEASE, UN SPECIFIED, WITHOUT COMPLICATIONS SNOMED Code(s): 53409734 Plan: 1. Continue present medical therapy. IV antibiotics. Solu-Medrol 20 mg every 8 hours. Daily CRP. Assessment and plan a care discussed with Dr. Carmona
--- NOTE | 2018-11-13 16:32 | PN ---
PROGRESS NOTE DATE OF SERVICE: 11/13/2018 This 33-year-old gentleman who was admitted with abdominal distention, pain and possible sigmoid colon stricture and abscess underwent exploratory laparotomy and drainage of the pelvic abscess as well as sigmoid colectomy and colostomy for sigmoid colon stricture and pelvic abscess by Dr. Andres. The patient subsequently had a fever and tachycardia. The patient was transferred to ICU and monitored for possible sepsis. Patient was given broad-spectrum IV antibiotics. The patient still has NG tube in situ. Multiple consultants, including Infectious Disease and Gastroenterology, are following the patient closely. The patient is on steroids as well. The final cultures are pending at this time. Past medical history reviewed. REVIEW OF SYSTEMS: CARDIOVASCULAR SYSTEM: No angina, palpitations. RESPIRATORY SYSTEM: As mentioned earlier. GI: As mentioned earlier. : No dysuria or retention. NERVOUS SYSTEM: No numbness, weakness. CURRENT MEDICATIONS: Reviewed. They include: 1. Xanax 0.25 t.i.d. p.r.n. 2. Anidulafungin 100 mg IV daily. 3. Catapres 0.1 p.r.n. 4. Heparin. 5. Alprazolam p.r.n. 6. Dilaudid p.r.n. 7. Lactated Ringer. 8. Solu-Medrol 20 IV q.8. 9. Narcan. 10.Zofran. 11.Protonix IV daily. 12.Zosyn 3.375 IV q.6. 13.Restoril. PHYSICAL EXAMINATION: Patient is alert, oriented x3. Pulse 101, blood pressure 152/98, respirations 16, temperature 99 degrees, pulse ox 96% on 2 L. HEENT: Conjunctivae normal. NECK: No jugular venous distention. CARDIOVASCULAR SYSTEM: S1, S2 muffled. RESPIRATORY SYSTEM: Breath sounds diminished at the bases. Scattered rhonchi and crackles. ABDOMEN: Soft. Status post surgery. No mass palpable. LEGS: No edema. No swelling. NERVOUS SYSTEM: Higher functions as mentioned earlier. Moves all 4 limbs. No focal motor or sensory deficit. LYMPHATICS: No lymph node palpable in neck, axillae or groin. SKIN: No ulcer, rash, bleeding. JOINTS: No active deforming arthropathy. LABS: WBC 12.9, hemoglobin 12. Sodium 134, potassium 5.3, and C-reactive protein is 140.8. ASSESSMENT: 1. Acute Crohn's disease, acute exacerbation, with abdominal abscess, pelvic abscess, sigmoid colon stricture and bowel obstruction, status post exploratory laparotomy and drainage of the abscess, sigmoid colectomy and end-colostomy. 2. Possible sepsis, present on admission. 3. Crohn's disease, acute exacerbation. 4. Increased white count. 5. Increased plasma lactic acid. 6. Increased creatinine with possibly mild acute renal failure, possibly from prerenal renal failure, acute tubular necrosis. 7. Hyponatremia. 8. Elevated C-reactive protein up to 137. 9. History of gastrointestinal bleed. 10.History of appendectomy. 11.History of hernia surgery. 12.FULL CODE. RECOMMENDATIONS AND DISCUSSION: I recommend to continue current medications, continue with the monitoring, symptomatic treatment. Continue with the incentive spirometry. Monitor closely. Continue the antibiotics. Continue with steroids. Monitor blood sugars closely. Will await the final cultures. DVT prophylaxis. Guarded prognosis because of multiple complex medical issues. Will follow closely with Surgery as well as a Gastroenterology and Infectious Disease. Discussed with the patient, who understands and agrees. Further recommendations to follow. MMODL / IJN: [id number] /
--- NOTE | 2018-11-13 17:09 | P.PN ---
Progress Note - Text Progress Note Date: 11/13/18 Postoperative day 1 The patient is status post sigmoid colectomy with end colostomy for sigmoid colon stricture and sigmoid colon abscess secondary to Crohn's disease. Patient was transferred to the ICU last night due to tachycardia. The patient's tachycardia appears to have resolved. He is making good urinary output his blood pressure has been stable. On exam his vital signs are stable. Abdomen soft. There is some mild incisional tenderness. Colostomy is pink. There is minimal output through the colostomy. Status post sigmoid likely. Patient will keep his NG tube until his bowel function returns.
[2018-11-13] MEDS: DEXTROSE 5%-0.45% NACL 1,000 ML IV SCH (21:55)
[2018-11-14] MEDS: PIPERACILLIN-TAZOBACTAM 3.375 GM in SODIUM CHLORIDE 0.9% 100 ML IVPB SCH ×3 (02:33→17:35)
[2018-11-14] MEDS: ANIDULAFUNGIN 100 MG in SODIUM CHLORIDE 0.9% 100 ML IVPB SCH (02:33)
[2018-11-14] MEDS: LACTATED RINGERS 1,000 ML IV SCH ×4 (02:34→21:37)
[2018-11-14 05:47] LABS: Basophils % (A) 0 %; Eosinophils % (A) 0 %; HCT 31.9 % (39.0-53.0); HGB 10.2 gm/dL (13.0-17.5); Lymphocytes # (A) 0.4 k/uL (1.0-4.8); Lymphocytes % (A) 3 %; MCH 26.4 pg (25.0-35.0); MCV 82.4 fL (80.0-100.0); Monocytes # (A) 0.8 k/uL (0-1.0); Monocytes % (A) 5 %; Neutrophils # (A) 13.4 k/uL (1.3-7.7); Neutrophils % (A) 91 %; Platelet Count 390 k/uL (150-450); RBC 3.88 m/uL (4.30-5.90); RDW 13.3 % (11.5-15.5); WBC 14.7 k/uL (3.8-10.6)
[2018-11-14 05:57] LABS: African American GFR (CKD) >90 (>60 ml/min/1.73 sqM); Anion Gap 2 mmol/L; Blood Urea Nitrogen 17 mg/dL (9-20); Calcium 8.3 mg/dL (8.4-10.2); Carbon Dioxide 33 mmol/L (22-30); Chloride 97 mmol/L (98-107); Glucose 104 mg/dL (74-99); Potassium 4.6 mmol/L (3.5-5.1); Sodium 132 mmol/L (137-145)
[2018-11-14] MEDS: ROPIVACAINE 250 MG, HYDROMORPHONE (PF) 5 MG in SODIUM CHLORIDE 0.9% 200 ML EPIDURAL PRN (06:52)
--- NOTE | 2018-11-14 06:58 | P.PN ---
Progress Note - Text 11/14 650am 33-year-old male status post sigmoid colectomy by Dr. Andres. Patient has an epidural catheter for postop pain control with solution running at 10 mL an hour with a VAS of 0, no motor or sensory deficits. Epidural rate was decreased to 6 mL an hour. Continue epidural infusion for another day
[2018-11-14] MEDS: HYDROmorphone 0.5 MG/0.5 ML SYRINGE IVP PRN (09:50)
[2018-11-14] MEDS: HEPARIN SODIUM,PORCINE 5,000 UNIT/ML 1 ML VIAL SQ SCH ×2 (09:50→21:36)
[2018-11-14] MEDS: methylPREDNISolone SOD SUCCI 40 MG/ML 1 ML VIAL IV SCH ×2 (09:50→15:48)
[2018-11-14] MEDS: PANTOPRAZOLE 40 MG/10 ML VIAL IV SCH (09:50)
--- NOTE | 2018-11-14 11:16 | P.PN ---
Progress Note - Text Progress Note Date: 11/14/18 Postoperative day 2 The patient is resting comfortably in his bed. He has some mild incisional pain. On exam his vital signs are stable. His abdomen soft. Stoma is slightly dusky. There is some gas in the colostomy bag. Status post sigmoid colectomy with end colostomy for sigmoid stricture related to Crohn's disease with abscess. Patient will have nasogastric tube removed today. He'll start on some ice chips and popsicles.
--- NOTE | 2018-11-14 15:28 | P.PN ---
Subjective Progress Note Date: 11/14/18 Principal diagnosis: Status post exploratory laparotomy, drainage of abscess, sigmoid colectomy and end colostomy postoperative day #2 This is a 33-year-old white male with history of Azra disease maintained on biological therapy previously Remicade and Humira, and Imuran. However because of side effects, patient was placed stelara. Patient was recently inpatient for abdominal pain related to Crohn's disease and distal large bowel obstruction with stricture of the proximal sigmoid colon. Patient was discharged last week, with improvement in his abdominal pain and he was on prednisone taper. Patient has been developing increased abdominal pain, nausea vomiting without fever or hematemesis. CT of the abdomen on this admission showed inflammatory wall thickening of the entire large bowel more significant involvement in the mid sigmoid colon. There was abscess in the lateral aspect of the mid sigmoid colon and free air noted in the pelvis increased compared to previous examination. Previous colonoscopy and biopsies showed active ileitis and chronic active trans verse colitis with ulceration. On 11/12/2018, patient underwent exploratory laparotomy, drainage of abscess, sigmoid colectomy with end colostomy. Patient had a relatively uneventful intraoperative course, and he was sent to a regular medical floor. Apparently last night, the patient was becoming more tachycardic, blood pressure was marginal, patient was noted to be diaphoretic, has arrangements were made to transfer the patient to the ICU. Patient is already on antibiotics as per Dr. Westbrook on the case, I recommended mostly fluid boluses and increase his main IV fluid. Overnight, the patient responded well to fluids, upon my evaluation this morning, patient is doing great. Denies any pain, he does have epidural catheter in place for pain control, denies any shortness of breath, no cough, no wheezing, denies any nausea vomiting or abdominal pain or diarrhea. His WBC count today is 4.9 in electronic are normal renal profile is normal. Patient is receiving methylprednisolone 25 mg IV push every 8 hours. Reevaluated today on 11/14/2018, patient remains in the ICU, however he is h emodynamically stable, doing great, continues to have epidural catheter in place, and that will likely be removed today. Patient denies any shortness of breath, no cough no wheezing, no chest pain, no diaphoresis. Even his abdominal pain is under control. CBC showed the risk of 14.7 hemoglobin of 10.2 basic metabolic profile is normal renal profile is normal. Objective - Vital Signs Vital signs: Vital Signs Temp 98.5 F 11/14/18 13:00 Pulse 77 11/14/18 13:00 Resp 16 11/14/18 13:00 BP 155/94 11/14/18 13:00 Pulse Ox 99 11/14/18 13:00 Intake & Output 11/13/18 11/14/18 11/14/18 18:59 06:59 18:59 Intake Total 1383.0 2534.500 1450 Output Total 1200 1570 1015 Balance 183.0 964.500 435 Weight 86.6 kg Intake: IV 1320 2290 1450 0.9 500ml @10 mls/hr 20 Anidulafungin 100 mg In 100 Sodium Chloride 0.9% 100 ml @ 84 mls/hr IVPB Q24H [facility] Rx#:[id number] Invasive Line 2 40 Lactated Ringers 1,000 ml 1200 1950 1350 @ 150 mls/hr IV .Q6H40M [facility] Rx#:[id number] Piperacillin-Tazobactam 3 100 200 100 .375 gm In Sodium Chloride 0.9% 100 ml @ 25 mls/hr IVPB Q8H [facility] Rx#: [id number] Intake, IV Titration 63.0 184.500 Amount Ropivacaine 250 mg 63.0 184.500 Hydromorphone (Pf) 5 mg In Sodium Chloride 0.9% 200 ml @ Per Protocol EPIDURAL .Q0M PRN Rx#: [id number] Oral 60 Output: Drainage 100 170 240 Left Colostomy 40 Right Abdomen 60 170 240 Urine 1100 1400 775 Other: Voiding Method Indwelling Catheter Indwelling Catheter Indwelling Catheter # Voids 1 1 - Exam Physical Exam: Revealed a 33-year-old white male, pleasant, in no distress. Head: Atraumatic, normocephalic, HEENT:[Neck is supple.] [No neck masses.] [No thyromegaly.] [No JVD.] Throat is clear, moist mucous membranes noted. Chest: [Clear throughout, no crackles, no rhonchi, no wheezes.] Cardiac Exam: [Normal S1 and S2, no S3 gallop, no murmur.] Abdomen: [Postsurgical, soft, surgical site is clean, surgical dressing is noted to be dry. colostomy is intact, PAULA drain is noted. No tenderness no rebound no guarding, diminished bowel sounds.] Extremities: [No clubbing, no edema, no cyanosis.] Neurological Exam: [No focal neurologic deficit.] Alert and oriented 3. Psychiatric: Normal mood, affect and normal mental status examination. Skin: No rashes. Lymphatics: No lymphadenopathy. - Labs CBC & Chem 7: 11/14/18 05:25 11/14/18 05:25 Labs: Abnormal Lab Results - Last 24 Hours (Table) 11/14/18 11/14/18 Range/Units 05:25 05:25 WBC 14.7 H (3.8-10.6) k/uL RBC 3.88 L (4.30-5.90) m/uL Hgb 10.2 L (13.0-17.5) gm/dL Hct 31.9 L (39.0-53.0) % Neutrophils # 13.4 H (1.3-7.7) k/uL Lymphocytes # 0.4 L (1.0-4.8) k/uL Sodium 132 L (137-145) mmol/L Chloride 97 L (98-107) mmol/L Carbon Dioxide 33 H (22-30) mmol/L Glucose 104 H (74-99) mg/dL Calcium 8.3 L (8.4-10.2) mg/dL C-Reactive Protein 210.0 H (<10.0) mg/L Microbiology - Last 24 Hours (Table) 11/10/18 17:43 Blood Culture - Preliminary Blood No Growth after 72 hours 11/12/18 16:26 Gram Stain - Preliminary Hip - Left Wound Culture - Preliminary Gram Neg Bacilli Assessment and Plan Assessment: Impression: 1 status post exploratory laparotomy, abdominal abscess drainage, and sigmoid colectomy with colostomy, postoperative day #2 2 postoperative tachycardia and hypotension, responded well to fluids most likely secondary to hypovolemia, possibility of abdominal sepsis is considered, but felt to be extremely unlikely. 3 large bowel obstruction secondary to Crohn's disease 4 Crohn's disease with both small and large bowel abscesses. 5 abdominal sepsis secondary to Crohn's disease. Recommendation: Transfer the patient out of the ICU, and the meantime continue antibiotics, IV fluids, incentive spirometry, early ambulation, antibiotics as per infectious disease, will follow on as-needed basis. Time with Patient: Less than 30
[2018-11-14] MEDS: HYDROmorphone 1 MG/ML 1 ML SYRINGE IVP PRN (15:47)
[2018-11-14] MEDS: cloNIDine HCL 0.1 MG TAB PO PRN (16:57)
--- NOTE | 2018-11-14 17:11 | PN ---
PROGRESS NOTE DATE OF SERVICE: 11/14/2018 This 33-year-old gentleman who was admitted with acute Crohn's disease, acute exacerbation, also had a pelvic abscess. Patient had surgery, exploratory laparotomy and drainage abscess, sigmoid colectomy and end-colostomy. The patient had an NG tube which has been removed. The patient is being closely monitored in the ICU at this time. Past medical history reviewed. REVIEW OF SYSTEMS: CARDIOVASCULAR SYSTEM: No angina, palpitations. RESPIRATORY SYSTEM: As mentioned earlier. GI: As mentioned earlier. : No dysuria or retention. NERVOUS SYSTEM: No numbness, weakness. CURRENT MEDICATIONS: Reviewed. They include: 1. Xanax 0.25 t.i.d. p.r.n. 2. Anidulafungin 100 mg daily. 3. Catapres 0.1 p.r.n. 4. Heparin 5000 units subcutaneously b.i.d. 5. Apresoline 10 mg p.r.n. 6. Dilaudid q.3 p.r.n. 7. Lactated Ringer. 8. Solu-Medrol 20 IV q.8. 9. Narcan 0.2 q.2 p.r.n. 10.Zofran. 11.Protonix. 12.Zosyn 3.375 IV q.8. 13.Ropivacaine. 14.Restoril. PHYSICAL EXAMINATION: Patient is alert, oriented x3. Pulse 77, blood pressure 155/94, respiration 16, temperature 98.5, pulse ox 99% on 2 L. HEENT: Conjunctivae normal. Oral mucosa moist. NECK: No jugular venous distention. No carotid bruit. No lymph node enlargement. CARDIOVASCULAR SYSTEM: S1, S2 muffled. RESPIRATORY SYSTEM: Breath sounds diminished at the bases. A few scattered rhonchi and crackles. ABDOMEN: Soft. Status post surgery. LEGS: No edema. No swelling. NERVOUS SYSTEM: No focal deficit. LABS: WBC 14.7, hemoglobin 10.2. Sodium 132. ASSESSMENT: 1. Acute Crohn's disease, acute exacerbation, with abdominal abscess, pelvic abscess, sigmoid colon stricture, bowel obstruction, status post exploratory laparotomy and drainage of abscess, sigmoid colectomy and end-colostomy. 2. Possible sepsis, present on admission. 3. Crohn's disease, acute exacerbation. 4. Increased white count. 5. Increased plasma lactic acid. 6. Increased creatinine with possible mild acute renal failure, possibly from prerenal renal failure, acute tubular necrosis. 7. Hyponatremia. 8. Elevated C-reactive protein up to 137. 9. History of gastrointestinal bleed. 10.History of appendectomy. 11.History of hernia surgery. 12.FULL CODE. RECOMMENDATIONS AND DISCUSSION: At this time I recommend to continue current medications, continue with the monitoring, symptomatic treatment. Continue with the antibiotics. Closely follow with Surgery, Infectious Disease, Pulmonary, Gastroenterology. Continue the rest of the medications. Prognosis guarded. Discussed with the family at length, who understands and agrees. Further recommendations to follow. MMODL / IJN: [id number] /
--- NOTE | 2018-11-15 00:36 | P.PN ---
Subjective Progress Note Date: 11/14/18 Principal diagnosis: Crohn's disease, colonic abscess Patient seen sitting bedside reporting that his pain is much improved. No nausea or vomiting. He did tolerate ice chips and popsicles. Objective - Vital Signs Vital signs: Vital Signs Temp 98.3 F 11/14/18 21:10 Pulse 69 11/14/18 21:10 Resp 18 11/14/18 21:10 BP 153/89 11/14/18 21:10 Pulse Ox 98 11/14/18 21:10 Intake & Output 11/14/18 11/14/18 11/15/18 06:59 18:59 06:59 Intake Total 2534.500 1450 Output Total 1570 1035 1210 Balance 964.500 415 -1210 Weight 86.6 kg Intake: IV 2290 1450 Anidulafungin 100 mg In 100 Sodium Chloride 0.9% 100 ml @ 84 mls/hr IVPB Q24H [facility] Rx#:[id number] Invasive Line 2 40 Lactated Ringers 1,000 ml 1950 1350 @ 150 mls/hr IV .Q6H40M [facility] Rx#:[id number] Piperacillin-Tazobactam 3 200 100 .375 gm In Sodium Chloride 0.9% 100 ml @ 25 mls/hr IVPB Q8H [facility] Rx#: [id number] Intake, IV Titration 184.500 Amount Ropivacaine 250 mg 184.500 Hydromorphone (Pf) 5 mg In Sodium Chloride 0.9% 200 ml @ Per Protocol EPIDURAL .Q0M [facility] Rx#: [id number] Oral 60 Output: Drainage 170 260 210 Right Abdomen 170 260 210 Urine 7285 124 2502 Uretheral (Davalos) 1000 Other: Voiding Method Indwelling Catheter Indwelling Catheter # Voids 1 - Exam On physical examination, patient appears comfortable in no apparent distress. HEAD: Normocephalic, atraumatic. EYES: No scleral icterus. No conjunctival injection. MOUTH: No lesions, tongue midline. NECK: Trachea midline, no gross abnormalities. CHEST: No respiratory distress. EXTREMITIES: No pedal edema. SKIN: No rashes, no jaundice. NEUROLOGIC: Alert and oriented x3. No focal deficits. - Labs CBC & Chem 7: 11/14/18 05:25 11/14/18 05:25 Labs: Abnormal Lab Results - Last 24 Hours (Table) 11/14/18 11/14/18 Range/Units 05:25 05:25 WBC 14.7 H (3.8-10.6) k/uL RBC 3.88 L (4.30-5.90) m/uL Hgb 10.2 L (13.0-17.5) gm/dL Hct 31.9 L (39.0-53.0) % Neutrophils # 13.4 H (1.3-7.7) k/uL Lymphocytes # 0.4 L (1.0-4.8) k/uL Sodium 132 L (137-145) mmol/L Chloride 97 L (98-107) mmol/L Carbon Dioxide 33 H (22-30) mmol/L Glucose 104 H (74-99) mg/dL Calcium 8.3 L (8.4-10.2) mg/dL C-Reactive Protein 210.0 H (<10.0) mg/L Microbiology - Last 24 Hours (Table) 11/12/18 16:26 Gram Stain - Final Hip - Left Wound Culture - Final Escherichia coli 11/10/18 17:43 Blood Culture - Preliminary Blood No Growth after 96 hours Assessment and Plan (1) Abscess of sigmoid colon Narrative/Plan: 33-year-old male with a known history of Crohn's disease of the large and small bowel, previously hospitalized with concerns for obstruction due to a known sigmoid stricture who presented to the hospital with abdominal pain and was found to have an abscess of the sigmoid colon and concerns for sepsis. He was taken for laparoscopic abscess drainage and partial colectomy with end colostomy formation. Currently he is reporting feeling much better and is tolerating ice chips and popsicles. Current Visit: Yes Status: Acute Code(s): K63.0 - ABSCESS OF INTESTINE SNOMED Code(s): 628529183 (2) Abdominal pain Current Visit: Yes Status: Acute Code(s): R10.9 - UNSPECIFIED ABDOMINAL PAIN SNOMED Code(s): 95351770 (3) Crohn's disease of both small and large intestine with abscess Current Visit: Yes Status: Acute Code(s): K50.814 - CROHN'S DISEASE OF BOTH SMALL AND LARGE INTESTINE W ABSCESS SNOMED Code(s): 87020871 Plan: Supportive care Appreciate surgical recommendations Advance diet per surgery Case discussed with the surgical service and in the setting of his recent surgical intervention will taper steroids with plan to eventually discontinue, we'll hold off on completely stopping steroids at this time until they are tapered as the patient had been on both Solu-Medrol in the hospital and prednisone at home prior to his presentation Solu-Medrol will be decreased to 20 mg daily and then switch to 20 mg prednisone daily when patient is able to tolerate oral medications at which time he will be tapered Thank you for allowing us to participate in the care of the patient we will continue to follow
[2018-11-15] MEDS: methylPREDNISolone SOD SUCCI 40 MG/ML 1 ML VIAL IV SCH ×2 (00:46→07:55)
[2018-11-15] MEDS: ANIDULAFUNGIN 100 MG in SODIUM CHLORIDE 0.9% 100 ML IVPB SCH (02:53)
[2018-11-15] MEDS: PIPERACILLIN-TAZOBACTAM 3.375 GM in SODIUM CHLORIDE 0.9% 100 ML IVPB SCH ×3 (03:35→17:39)
[2018-11-15] MEDS: LACTATED RINGERS 1,000 ML IV SCH ×3 (06:16→15:22)
[2018-11-15] MEDS: HEPARIN SODIUM,PORCINE 5,000 UNIT/ML 1 ML VIAL SQ SCH ×2 (07:55→21:39)
[2018-11-15] MEDS: PANTOPRAZOLE 40 MG/10 ML VIAL IV SCH (07:55)
[2018-11-15 08:27] LABS: Basophils % (A) 0 %; Eosinophils % (A) 0 %; HCT 35.2 % (39.0-53.0); HGB 11.3 gm/dL (13.0-17.5); Lymphocytes # (A) 0.8 k/uL (1.0-4.8); Lymphocytes % (A) 5 %; MCH 26.5 pg (25.0-35.0); Mean Platelet Volume 6.8; Monocytes # (A) 0.7 k/uL (0-1.0); Monocytes % (A) 5 %; Neutrophils # (A) 12.9 k/uL (1.3-7.7); Neutrophils % (A) 89 %; Platelet Count 373 k/uL (150-450); RBC 4.24 m/uL (4.30-5.90); RDW 13.9 % (11.5-15.5); WBC 14.5 k/uL (3.8-10.6)
[2018-11-15 08:46] LABS: African American GFR (CKD) >90 (>60 ml/min/1.73 sqM); Anion Gap 4 mmol/L; Blood Urea Nitrogen 17 mg/dL (9-20); Calcium 8.5 mg/dL (8.4-10.2); Carbon Dioxide 33 mmol/L (22-30); Chloride 98 mmol/L (98-107); Glucose 79 mg/dL (74-99); Potassium 4.1 mmol/L (3.5-5.1); Sodium 135 mmol/L (137-145)
[2018-11-15] MEDS: HYDROmorphone 1 MG/ML 1 ML SYRINGE IVP PRN (10:27)
--- NOTE | 2018-11-15 10:38 | P.PN ---
Progress Note - Text Progress Note Date: 11/15/18 The patient stay well. He's has gas and stool his colostomy. On exam his vital signs are stable. His evidence soft. Patient's epidural be removed today. He'll placed on clear liquid diet.
--- NOTE | 2018-11-15 11:01 | P.PN ---
Progress Note - Text Progress Note Date: 11/15/18 33-year-old male status post sigmoid colectomy postop day #3 epidural catheter day #4.. Patient has an epidural catheter for postop pain control with solution running at 10 mL an hour with a VAS of 0, no motor or sensory deficits. Epidural rate at 6 ML's an hour. We'll discontinue epidural catheter today 2 hours after last subq heparin dose.
[2018-11-15] MEDS: HYDROmorphone 0.5 MG/0.5 ML SYRINGE IVP PRN ×2 (15:22→19:19)
--- NOTE | 2018-11-15 15:48 | XR ---
EXAMINATION TYPE: XR chest 1V portable DATE OF EXAM: 11/15/2018 COMPARISON: July 01, 2009 HISTORY: Atelectasis. TECHNIQUE: Single frontal view of the chest is obtained. FINDINGS: Heart and mediastinum are normal. Lungs are clear. Diaphragm is normal. Bony thorax is int act. IMPRESSION: Normal chest. No change.
--- NOTE | 2018-11-15 15:57 | PN ---
PROGRESS NOTE DATE OF SERVICE: 11/15/2018. This 33-year-old gentleman was admitted with Crohn's disease, acute exacerbation, had a pelvic abscess. The patient had surgery with bowel resection. The patient being closely monitored. NG tube is removed. No chest pain. No palpitations. No fever. EXAM: Alert and oriented times three. Pulse is 74, blood pressure 150/90, respirations 16, temperature 98.2, pulse ox 97% on room air. HEENT: Conjunctivae normal. Neck: No jugular venous distention. CARDIOVASCULAR: S1, S2 muffled. RESPIRATION: Breath sounds diminished in the bases. A few scattered rhonchi. No crackles. ABDOMEN is soft, status post surgery. LEGS are no edema. No swelling. CENTRAL NERVOUS SYSTEM: No focal deficits. LAB STUDIES: WBC 14.5, hemoglobin 11.3. Sodium is 135. ASSESSMENT: 1. Acute Crohn's disease acute exacerbation with abdominal abscess, pelvic abscess, sigmoid colon stricture, bowel obstruction status post exploratory laparotomy and drainage of the abscess, sigmoid colectomy and end colostomy. 2. Possible sepsis, present on admission secondary to above. 3. Crohn's disease acute exacerbation. 4. Increased WBC. 5. Increased plasma lactic acid. 6. Increased creatinine with possible mild acute renal failure possibly from prerenal renal failure, acute tubular necrosis. 7. Hyponatremia. 8. Elevated C-reactive protein up to 137. 9. History of gastrointestinal bleed. 10.History of appendectomy. 11.History of hernia surgery. 12.FULL CODE. RECOMMENDATIONS AND DISCUSSION: In this 33-year-old gentleman who was admitted with multiple medical issues, we will monitor the patient closely, continue the current medications, management and symptomatic treatment. Otherwise I would recommend continue with IV antibiotics. Steroids are being tapered at this time. Otherwise, we will also continue with DVT prophylaxis. Incentive spirometry. A portable chest x-ray will be repeated to ensure normalcy. Otherwise, we will continue to monitor. Guarded prognosis because of multiple complex medical issues. Further recommendations to follow. MMODL / IJN: [id number] /
[2018-11-15] MEDS: HYDROcodone/APAP 5-325MG 1 EACH TAB PO PRN (21:39)
[2018-11-16] MEDS: LACTATED RINGERS 1,000 ML IV SCH ×4 (00:39→21:07)
[2018-11-16] MEDS: ANIDULAFUNGIN 100 MG in SODIUM CHLORIDE 0.9% 100 ML IVPB SCH (02:24)
[2018-11-16] MEDS: PIPERACILLIN-TAZOBACTAM 3.375 GM in SODIUM CHLORIDE 0.9% 100 ML IVPB SCH ×3 (02:24→17:41)
[2018-11-16] MEDS: HYDROmorphone 0.5 MG/0.5 ML SYRINGE IVP PRN ×4 (02:26→15:57)
[2018-11-16] MEDS: PANTOPRAZOLE 40 MG/10 ML VIAL IV SCH (07:30)
[2018-11-16] MEDS: methylPREDNISolone SOD SUCCI 40 MG/ML 1 ML VIAL IV SCH (07:31)
[2018-11-16] MEDS: HEPARIN SODIUM,PORCINE 5,000 UNIT/ML 1 ML VIAL SQ SCH ×2 (07:31→21:11)
[2018-11-16 07:52] LABS: Basophils % (A) 0 %; Eosinophils % (A) 0 %; HCT 36.1 % (39.0-53.0); HGB 11.3 gm/dL (13.0-17.5); Lymphocytes # (A) 0.4 k/uL (1.0-4.8); Lymphocytes % (A) 3 %; MCH 26.1 pg (25.0-35.0); MCHC 31.4 g/dL (31.0-37.0); MCV 83.1 fL (80.0-100.0); Mean Platelet Volume 6.4; Monocytes # (A) 0.8 k/uL (0-1.0); Monocytes % (A) 5 %; Neutrophils % (A) 92 %; Platelet Count 477 k/uL (150-450); RBC 4.34 m/uL (4.30-5.90); RDW 13.4 % (11.5-15.5); WBC 15.3 k/uL (3.8-10.6)
[2018-11-16 08:06] LABS: African American GFR (CKD) >90 (>60 ml/min/1.73 sqM); Anion Gap 5 mmol/L; Blood Urea Nitrogen 12 mg/dL (9-20); Calcium 8.4 mg/dL (8.4-10.2); Carbon Dioxide 34 mmol/L (22-30); Chloride 96 mmol/L (98-107); Glucose 90 mg/dL (74-99); Potassium 4.4 mmol/L (3.5-5.1); Sodium 135 mmol/L (137-145)
[2018-11-16] MEDS: HYDROcodone/APAP 5-325MG 1 EACH TAB PO PRN (09:34)
--- NOTE | 2018-11-16 13:02 | P.PN ---
Progress Note - Text Progress Note Date: 11/16/18 The patient feels better today. His colostomy dysfunction. On exam his vital signs are stable. His abdomen soft. There is a large amount of stool in his colostomy bag. Status post sigmoid colectomy for Crohn's disease and sigmoid colon stricture and abscess. The patient is a well. He'll have his diet advanced. We discussed with discharged home tomorrow.
[2018-11-16] MEDS: ONDANSETRON 4 MG/2 ML VIAL IVP PRN (15:57)
--- NOTE | 2018-11-16 19:56 | P.PN ---
Subjective Progress Note Date: 11/16/18 Principal diagnosis: Crohn's disease, colonic abscess Patient seen lying in bed reporting that he has tolerated advancement in his diet. He is having output from ostomy. He is feeling much better overall. Objective - Vital Signs Vital signs: Vital Signs Temp 98.3 F 11/16/18 16:45 Pulse 65 11/16/18 16:45 Resp 18 11/16/18 16:45 BP 151/83 11/16/18 16:45 Pulse Ox 95 11/16/18 16:45 Intake & Output 11/16/18 11/16/18 11/17/18 06:59 18:59 06:59 Output Total 60 30 Balance -60 -30 Output: Drainage 60 30 Right Abdomen 60 30 Other: # Voids 2 3 # Bowel Movements 1 - Exam On physical examination, patient appears comfortable in no apparent distress. HEAD: Normocephalic, atraumatic. EYES: No scleral icterus. No conjunctival injection. MOUTH: No lesions, tongue midline. NECK: Trachea midline, no gross abnormalities. CHEST: No respiratory distress. ABDOMEN: Nonbloody output per ostomy. Abdomen mildly tender. Positive for bowel sounds. No rigidity. EXTREMITIES: No pedal edema. SKIN: No rashes, no jaundice. NEUROLOGIC: Alert and oriented x3. No focal deficits. - Labs CBC & Chem 7: 11/16/18 07:20 11/16/18 07:20 Labs: Abnormal Lab Results - Last 24 Hours (Table) 11/16/18 11/16/18 Range/Units 07:20 07:20 WBC 15.3 H (3.8-10.6) k/uL Hgb 11.3 L (13.0-17.5) gm/dL Hct 36.1 L (39.0-53.0) % Plt Count 477 H (150-450) k/uL Neutrophils # 14.0 H (1.3-7.7) k/uL Lymphocytes # 0.4 L (1.0-4.8) k/uL Sodium 135 L (137-145) mmol/L Chloride 96 L (98-107) mmol/L Carbon Dioxide 34 H (22-30) mmol/L Microbiology - Last 24 Hours (Table) 11/12/18 16:26 Anaerobic Culture - Final Hip - Left Anaerobic Gm Negative Bacilli Anaerobic Gram Positive Cocci Anaerobic Gm Negative Bacilli#2 11/10/18 17:43 Blood Culture - Preliminary Blood No Growth after 120 hours Assessment and Plan (1) Abscess of sigmoid colon Narrative/Plan: 33-year-old male with a known history of Crohn's disease of the large and small bowel, previously hospitalized with concerns for obstruction due to a known sigmoid stricture who presented to the hospital with abdominal pain and was found to have an abscess of the sigmoid colon and concerns for sepsis. He was taken for laparoscopic abscess drainage and partial colectomy with end colostomy formation. Current Visit: Yes Status: Acute Code(s): K63.0 - ABSCESS OF INTESTINE SNOMED Code(s): 198564423 (2) Abdominal pain Current Visit: Yes Status: Acute Code(s): R10.9 - UNSPECIFIED ABDOMINAL PAIN SNOMED Code(s): 00614326 (3) Crohn's disease of both small and large intestine with abscess Current Visit: Yes Status: Acute Code(s): K50.814 - CROHN'S DISEASE OF BOTH SMALL AND LARGE INTESTINE W ABSCESS SNOMED Code(s): 48040688 Plan: Supportive care Appreciate surgical recommendations Advance diet per surgery Patient will taper steroids from 20 mg down by 5 mg every 5 days until complete Patient's follow-up with Dr. Carmona in 1-2 weeks Thank you for allowing us to participate in the care of the patient we will continue to follow
--- NOTE | 2018-11-16 20:16 | PN ---
PROGRESS NOTE DATE OF SERVICE: 11/16/2018 This 33-year-old gentleman was admitted with Crohn's disease, acute exacerbation as well as an abdominal abscess, had laparotomy and drainage of abscess and bowel resection by Dr. Andres. The patient closely monitored at this time. The most recent chest x-ray which was done yesterday which was personally reviewed by me showed no acute abnormality. The patient closely monitored at this time. The patient is able to tolerate some diet at this time. PHYSICAL EXAM: Alert and oriented x3. The pulse is 88, blood pressure 150/84, respirations 14, temperature 98.4, pulse ox 94% on room air. HEENT: Conjunctivae normal. NECK: No jugular venous distention. CARDIOVASCULAR: S1, S2 muffled. RESPIRATIONS: Breath sounds diminished in the bases. No rhonchi. No crackles. ABDOMEN: Soft. Status post surgery. No guarding. No rigidity. No mass palpable. Bowel sounds present. LEGS: No edema. No swelling. CENTRAL NERVOUS SYSTEM: No focal deficits. LAB STUDIES: WBC 15.2, hemoglobin 11.3, sodium 135. ASSESSMENT: 1. Acute Crohn's disease acute exacerbation with intraabdominal abscess, pelvic abscess, sigmoid colon stricture, bowel resection, status post exploratory laparotomy and as well as drainage of abscess, sigmoid colectomy and end-colostomy. 2. Possible sepsis, present on admission secondary to above. 3. Crohn's disease, acute exacerbation. 4. Increased WBC. 5. Increased plasma lactic acid. 6. Increased creatinine with mild acute renal failure possibly from prerenal renal failure, acute tubular necrosis. 7. Hyponatremia. 8. Elevated C-reactive protein up to 137. 9. History of gastrointestinal bleed. 10.History of appendectomy. 11.History of hernia surgery. 12.FULL CODE. RECOMMENDATIONS AND DISCUSSION: Recommend to continue current medications, continue with monitoring, management and symptomatic treatment. Otherwise, at this time, I recommend continue with current medications. Continue with diet and repeat labs. DVT prophylaxis. Steroid taper by Gastroenterology. Guarded prognosis, but however the patient is stable. Further recommendations to follow. MMODL / IJN: [id number] /
[2018-11-16] MEDS: HYDROmorphone 1 MG/ML 1 ML SYRINGE IVP PRN (20:22)
[2018-11-17] MEDS: ANIDULAFUNGIN 100 MG in SODIUM CHLORIDE 0.9% 100 ML IVPB SCH (02:09)
[2018-11-17] MEDS: HYDROmorphone 1 MG/ML 1 ML SYRINGE IVP PRN ×4 (03:09→23:22)
[2018-11-17] MEDS: PIPERACILLIN-TAZOBACTAM 3.375 GM in SODIUM CHLORIDE 0.9% 100 ML IVPB SCH ×3 (03:12→16:35)
[2018-11-17] MEDS: LACTATED RINGERS 1,000 ML IV SCH ×3 (04:54→16:37)
[2018-11-17] MEDS: HYDROmorphone 0.5 MG/0.5 ML SYRINGE IVP PRN (06:18)
[2018-11-17] MEDS: PANTOPRAZOLE 40 MG/10 ML VIAL IV SCH (07:57)
[2018-11-17] MEDS: HEPARIN SODIUM,PORCINE 5,000 UNIT/ML 1 ML VIAL SQ SCH ×2 (07:57→21:56)
[2018-11-17] MEDS: predniSONE 20 MG TAB PO SCH (07:57)
[2018-11-17] MEDS: ONDANSETRON 4 MG/2 ML VIAL IVP PRN (08:04)
[2018-11-17] MEDS: HYDROcodone/APAP 5-325MG 1 EACH TAB PO PRN (08:04)
[2018-11-17 09:42] LABS: Basophils % (A) 0 %; Eosinophils # (A) 0.1 k/uL (0-0.7); Eosinophils % (A) 1 %; HCT 34.5 % (39.0-53.0); HGB 10.5 gm/dL (13.0-17.5); Lymphocytes # (A) 0.5 k/uL (1.0-4.8); Lymphocytes % (A) 4 %; MCH 25.6 pg (25.0-35.0); MCHC 30.6 g/dL (31.0-37.0); MCV 83.7 fL (80.0-100.0); Mean Platelet Volume 6.5; Monocytes # (A) 0.5 k/uL (0-1.0); Monocytes % (A) 4 %; Neutrophils # (A) 12.1 k/uL (1.3-7.7); Neutrophils % (A) 91 %; Platelet Count 460 k/uL (150-450); RBC 4.12 m/uL (4.30-5.90); RDW 13.5 % (11.5-15.5); WBC 13.3 k/uL (3.8-10.6)
[2018-11-17 09:57] LABS: African American GFR (CKD) >90 (>60 ml/min/1.73 sqM); Anion Gap 8 mmol/L; Blood Urea Nitrogen 13 mg/dL (9-20); Calcium 8.7 mg/dL (8.4-10.2); Carbon Dioxide 30 mmol/L (22-30); Chloride 97 mmol/L (98-107); Glucose 78 mg/dL (74-99); Potassium 4.5 mmol/L (3.5-5.1); Sodium 135 mmol/L (137-145)
--- NOTE | 2018-11-17 10:53 | P.PN ---
<Yin Sanders - Last Filed: 11/17/18 10:47> Subjective Progress Note Date: 11/17/18 CHIEF COMPLAINT: Crohn's disease HISTORY OF PRESENT ILLNESS: Patient is status post exploratory laparotomy, drainage of abscess, and sigmoid colectomy with end colostomy performed on 11/12/2018. Patient states he was doing well over the weekend until his diet wa s advanced yesterday and he ate 2 large bowls of tomato soup. He states he had an episode of emesis. This morning he is feeling well and denies nausea or further episodes of vomiting. He reports minimal abdominal pain. Ostomy with stool present. WBC 13.3. Hemoglobin 10.5. PHYSICAL EXAM: VITAL SIGNS: Reviewed. GENERAL: Well-developed in no acute distress. HEENT: No sclera icterus. Extraocular movements grossly intact. Moist buccal mucosa. Head is atraumatic, normocephalic. ABDOMEN: Soft. Nondistended. Minimal tenderness. Ostomy to left lower qu adrant with stool noted. NEUROLOGIC: Alert and oriented. Cranial nerves II through XII grossly intact. ASSESSMENT: 1. Crohn's disease 2. Status post exploratory laparotomy, drainage of abscess, and sigmoid colectomy with end colostomy PLAN: 1. Resume clear liquid diet 2. Activity as tolerated 3. Pain control 4. Incentive spirometry 5. Ongoing ostomy teaching 6. Monitor CBC. Continue antibiotics per ID. Nurse practitioner note has been reviewed by physician. Signing provider agrees with the documented findings, assessment, and plan of care. Objective - Vital Signs Vital signs: Vital Signs Temp 98.9 F 11/17/18 05:15 Pulse 91 11/17/18 05:15 Resp 18 11/17/18 05:15 BP 161/98 11/17/18 05:15 Pulse Ox 98 11/17/18 05:15 Intake & Output 11/16/18 11/17/18 11/17/18 18:59 06:59 18:59 Intake Total 0 Output Total 30 220 Balance -30 -220 Intake: Oral 0 Output: Drainage 30 20 Right Abdomen 30 20 Stool 200 Other: # Voids 3 0 - Labs CBC & Chem 7: 11/17/18 09:05 11/17/18 09:05 Labs: Abnormal Lab Results - Last 24 Hours (Table) 11/17/18 11/17/18 Range/Units 09:05 09:05 WBC 13.3 H (3.8-10.6) k/uL RBC 4.12 L (4.30-5.90) m/uL Hgb 10.5 L (13.0-17.5) gm/dL Hct 34.5 L (39.0-53.0) % MCHC 30.6 L (31.0-37.0) g/dL Plt Count 460 H (150-450) k/uL Neutrophils # 12.1 H (1.3-7.7) k/uL Lymphocytes # 0.5 L (1.0-4.8) k/uL Sodium 135 L (137-145) mmol/L Chloride 97 L (98-107) mmol/L Microbiology - Last 24 Hours (Table) 11/10/18 17:43 Blood Culture - Final Blood No Growth after 144 hours <Ryan Delgado - Last Filed: 11/17/18 17:28> Subjective As above. Patient had episodes of emesis. Tolerating clears. He would like to try more to eat tomorrow. He is hoping to go home tomorrow. Await infectious disease recommendations regarding home antibiotics. Objective - Vital Signs Vital signs: Vital Signs Temp 97.9 F 11/17/18 14:38 Pulse 72 11/17/18 14:38 Resp 16 11/17/18 16:00 BP 157/86 11/17/18 14:38 Pulse Ox 96 11/17/18 14:38 Intake & Output 11/16/18 11/17/18 11/17/18 18:59 06:59 18:59 Intake Total 0 Output Total 30 220 210 Balance -30 -220 -210 Weight 82.7 kg Intake: Oral 0 Output: Drainage 30 20 10 Right Abdomen 30 20 10 Stool 200 200 Other: Voiding Method Toilet # Voids 3 0 2 - Labs CBC & Chem 7: 11/17/18 09:05 11/17/18 09:05 Labs: Abnormal Lab Results - Last 24 Hours (Table) 11/17/18 11/17/18 Range/Units 09:05 09:05 WBC 13.3 H (3.8-10.6) k/uL RBC 4.12 L (4.30-5.90) m/uL Hgb 10.5 L (13.0-17.5) gm/dL Hct 34.5 L (39.0-53.0) % MCHC 30.6 L (31.0-37.0) g/dL Plt Count 460 H (150-450) k/uL Neutrophils # 12.1 H (1.3-7.7) k/uL Lymphocytes # 0.5 L (1.0-4.8) k/uL Sodium 135 L (137-145) mmol/L Chloride 97 L (98-107) mmol/L Microbiology - Last 24 Hours (Table) 11/16/18 11:32 Blood Culture - Preliminary Blood No Growth after 24 hours 11/10/18 17:43 Blood Culture - Final Blood No Growth after 144 hours
[2018-11-17 11:37] VITALS: BMI 23.3
--- NOTE | 2018-11-17 18:11 | PN ---
PROGRESS NOTE DATE OF SERVICE: 11/17/2018 This 33-year-old gentleman who was admitted with acute Crohn's disease, acute exacerbation, with intraabdominal abscess, pelvic abscess, sigmoid colon stricture, bowel resection, status post exploratory laparotomy as well as drainage of abscess, is being closely monitored at this time. The patient apparently yesterday had 2 bowls of tomato soup and the patient apparently had significant vomiting. The patient has some abdominal pain. Patient is being closely monitored. Surgery is following the patient closely. No chest pain. No palpitations. No fever. On exam, alert and oriented x3. The pulse is 91, blood pressure 160/98, respiration 18, temperature 98.9, pulse ox 98% on room air. HEENT: Conjunctivae normal. NECK: No jugular venous distention. CARDIOVASCULAR SYSTEM: S1, S2 muffled. RESPIRATORY SYSTEM: Breath sounds diminished at the bases. No rhonchi. No crackles. ABDOMEN: Soft. Status post surgery. No guarding. No rigidity. No mass palpable. LEGS: No edema. No swelling. NERVOUS SYSTEM: No focal deficit. LABS: WBC 13.3, hemoglobin 10.5. Sodium 135. ASSESSMENT: 1. Acute Crohn's disease, acute exacerbation, with intraabdominal abscess, pelvic abscess, sigmoid colon stricture, status post bowel resection and exploratory laparotomy as well as drainage of abscess, sigmoid colectomy and end-colostomy. 2. Possible sepsis, present on admission, secondary to above. 3. Crohn's disease, acute exacerbation. 4. Increased white count. 5. Increased plasma lactic acid. 6. Increased creatinine with mild acute renal failure, possibly from prerenal renal failure, acute tubular necrosis. 7. Hyponatremia. 8. Elevated C-reactive protein up to 137. 9. History of gastrointestinal bleed. 10.History of appendectomy. 11.History of hernia surgery. 12.FULL CODE. RECOMMENDATIONS AND DISCUSSION: I recommend to continue current medications, continue with the monitoring, symptomatic treatment. Back off the diet. Currently the patient is on clear liquids. Will cautiously advance. Closely follow with multiple consultants, including Surgery. Guarded prognosis. Further recommendations to follow. MMODL / IJN: [id number] /
[2018-11-17] MEDS: cloNIDine HCL 0.1 MG TAB PO PRN (21:55)
--- NOTE | 2018-11-18 00:56 | P.PN ---
Subjective Progress Note Date: 11/17/18 33-year-old male with a long-standing history of Crohn's disease with many complications has been treated with multiple agents as of late however failed multiple types of biological therapies and is now on Stelara. He thought he was having some relatively good response to this current course of therapy until he started developing increasing amounts of abdominal pain associated with nausea and emesis and loose stool. He felt very poorly and had fever and chills and constantly presents to the emergency center. Imaging studies are performed and surgical consult and gastroenterology consult were obtained. The patient is without evidence of significant abscess in consult was requested. The patient has NG tube in place which relates has helped him with some of the nausea and emesis or relieving symptoms abdominal pain. Pain medications are helping. 11/12/2018 the patient is status post surgery which is the colonic resection and drainage of the pelvic abscess. He is mostly comfortable with his epidural in place and is not comfortable with the Davalos catheter but understands its im portance. No further fever chill. No hematemesis melena or hematochezia. 11/17/2018 the patient is definitely feeling better. Having clear liquids without difficulty. Abdominal pain is doing quite well. Been well with his colostomy and having no difficulty with changing the pouch. He is up and moving and is feeling considerably better overall. No further fevers are noted. Objective - Vital Signs Vital signs: Vital Signs Temp 98 F 11/17/18 22:00 Pulse 71 11/18/18 00:00 Resp 20 11/18/18 00:00 BP 173/69 11/17/18 22:00 Pulse Ox 97 11/17/18 22:00 Intake & Output 11/17/18 11/17/18 11/18/18 06:59 18:59 06:59 Intake Total 0 Output Total 220 210 0 Balance -220 -210 0 Weight 75.7 kg Intake: Oral 0 Output: Drainage 20 10 Right Abdomen 20 10 Stool 200 200 0 Other: Voiding Method Toilet Toilet # Voids 0 2 0 - Exam 33-year-old male of thin build, much more comfortable HEENT: Anicteric conjunctiva are pink and moist nasal mucosa grossly intact without significant lesions, there is no thrush. Neck: The neck is supple without significant lymphadenopathy or thyromegaly. Lungs: Good bilateral air entry without significant crackles or wheezing. There is no significant bronchial sounds. There is no egophony or dullness. Heart: Regular rate and rhythm with an audible S1-S2, no S3 no S4. There is no significant murmur click or rub, PMI was nondisplaced. Abdomen: Bowel sounds are noted, ostomy is in place without acute difficulty abdomen is only minimally tender Extremities: The upper extremities have excellent pulses they are symmetric, no significant petechiae or telangiectasia. No splinter hemorrhages were noted. The lower extremities are free from significant edema. The peripheral pulses were 2+ and symmetric. Neuro: Awake alert oriented to person place and time. There are no acute new gross focal sensory motor deficits. - Labs CBC & Chem 7: 11/17/18 09:05 11/17/18 09:05 Labs: Abnormal Lab Results - Last 24 Hours (Table) 11/17/18 11/17/18 Range/Units 09:05 09:05 WBC 13.3 H (3.8-10.6) k/uL RBC 4.12 L (4.30-5.90) m/uL Hgb 10.5 L (13.0-17.5) gm/dL Hct 34.5 L (39.0-53.0) % MCHC 30.6 L (31.0-37.0) g/dL Plt Count 460 H (150-450) k/uL Neutrophils # 12.1 H (1.3-7.7) k/uL Lymphocytes # 0.5 L (1.0-4.8) k/uL Sodium 135 L (137-145) mmol/L Chloride 97 L (98-107) mmol/L Microbiology - Last 24 Hours (Table) 11/16/18 11:32 Blood Culture - Preliminary Blood No Growth after 24 hours Laboratory Results WBC 13.3 k/uL (3.8-10.6) H 11/17/18 09:05 RBC 4.12 m/uL (4.30-5.90) L 11/17/18 09:05 Hgb 10.5 gm/dL (13.0-17.5) L 11/17/18 09:05 Hct 34.5 % (39.0-53.0) L 11/17/18 09:05 MCV 83.7 fL (80.0-100.0) 11/17/18 09:05 MCH 25.6 pg (25.0-35.0) 11/17/18 09:05 MCHC 30.6 g/dL (31.0-37.0) L 11/17/18 09:05 RDW 13.5 % (11.5-15.5) 11/17/18 09:05 Plt Count 460 k/uL (150-450) H 11/17/18 09:05 Neutrophils % 91 % 11/17/18 09:05 Lymphocytes % 4 % 11/17/18 09:05 Monocytes % 4 % 11/17/18 09:05 Eosinophils % 1 % 11/17/18 09:05 Basophils % 0 % 11/17/18 09:05 Neutrophils # 12.1 k/uL (1.3-7.7) H 11/17/18 09:05 Lymphocytes # 0.5 k/uL (1.0-4.8) L 11/17/18 09:05 Monocytes # 0.5 k/uL (0-1.0) 11/17/18 09:05 Eosinophils # 0.1 k/uL (0-0.7) 11/17/18 09:05 Basophils # 0.0 k/uL (0-0.2) 11/17/18 09:05 Hypochromasia Slight 11/13/18 05:35 ESR 20 mm/hr (0-15) H 11/10/18 06:57 Sodium 135 mmol/L (137-145) L 11/17/18 09:05 Potassium 4.5 mmol/L (3.5-5.1) 11/17/18 09:05 Chloride 97 mmol/L (98-107) L 11/17/18 09:05 Carbon Dioxide 30 mmol/L (22-30) 11/17/18 09:05 Anion Gap 8 mmol/L 11/17/18 09:05 BUN 13 mg/dL (9-20) 11/17/18 09:05 Creatinine 0.95 mg/dL (0.66-1.25) 11/17/18 09:05 Est GFR (CKD-EPI)AfAm >90 (>60 ml/min/1.73 sqM) 11/17/18 09:05 Est GFR (CKD-EPI)NonAf >90 (>60 ml/min/1.73 sqM) 11/17/18 09:05 Glucose 78 mg/dL (74-99) 11/17/18 09:05 POC Glucose (mg/dL) 89 mg/dL (75-99) 11/13/18 01:42 POC Glu Residential Le[employer] Agent ID Maile Abdi 11/13/18 01:42 Lactic Ac Sepsis Rflx Y 11/09/18 08:29 Plasma Lactic Acid Reece 1.0 mmol/L (0.7-2.0) 11/09/18 11:46 Calcium 8.7 mg/dL (8.4-10.2) 11/17/18 09:05 Total Bilirubin 0.5 mg/dL (0.2-1.3) 11/09/18 07:28 AST 11 U/L (17-59) L 11/09/18 07:28 ALT 17 U/L (21-72) L 11/09/18 07:28 Alkaline Phosphatase 84 U/L (38-126) 11/09/18 07:28 C-Reactive Protein 210.0 mg/L (<10.0) H 11/14/18 05:25 Total Protein 6.8 g/dL (6.3-8.2) 11/09/18 07:28 Albumin 3.8 g/dL (3.5-5.0) 11/09/18 07:28 Amylase 51 U/L (30-110) 11/09/18 07:28 Lipase 119 U/L (23-300) 11/09/18 07:28 Urine Color Yellow 11/09/18 08:26 Urine Appearance Clear (Clear) 11/09/18 08:26 Urine pH 6.5 (5.0-8.0) 11/09/18 08:26 Ur Specific Christine 1.020 (1.001-1.035) 11/09/18 08:26 Urine Protein Trace (Negative) H 11/09/18 08:26 Urine Glucose (UA) Negative (Negative) 11/09/18 08:26 Urine Ketones Negative (Negative) 11/09/18 08:26 Urine Blood Negative (Negative) 11/09/18 08:26 Urine Nitrite Negative (Negative) 11/09/18 08:26 Urine Bilirubin Negative (Negative) 11/09/18 08:26 Urine Urobilinogen <2.0 mg/dL (<2.0) 11/09/18 08:26 Ur Leukocyte Esterase Negative (Negative) 11/09/18 08:26 Blood Type O Positive 11/13/18 00:36 Blood Type Confirm O Positive 11/13/18 01:31 Blood Type Recheck CABO Indicated 11/13/18 00:36 Antibody Screen NEGATIVE 11/13/18 00:36 Spec Expiration Date 11/16/2018 - 2336 11/13/18 00:36 Microbiology 11/16/18 11:32 Blood Blood Culture - Preliminary No Growth after 24 hours 11/10/18 17:43 Blood Blood Culture - Final No Growth after 144 hours 11/12/18 16:26 Hip - Left Anaerobic Culture - Final Anaerobic Gm Negative Bacilli Anaerobic Gram Positive Cocci Anaerobic Gm Negative Bacilli#2 11/12/18 16:26 Hip - Left Gram Stain - Final 11/12/18 16:26 Hip - Left Wound Culture - Final Escherichia coli 11/11/18 01:45 Urine,Voided Urine Culture - Final Assessment and Plan (1) Large bowel obstruction Current Visit: Yes Status: Acute Code(s): K56.609 - UNSP INTESTNL OBST, UNSP TO PARTIAL VERSUS COMPLETE OBST SNOMED Code(s): 092821400 (2) Crohn's disease of both small and large intestine with abscess Narrative/Plan: 33-year-old male with a long-standing history of Crohn's disease has been tr eated with multiple agents including recently biologicals that were not giving him good relief of his symptoms. He was changed to Stelara and was being monitored. He then had the relatively sudden onset of worsening pain associated with nausea and emesis and loose stool. He presented to the emergency center. Evaluations were performed in the computed tomography scan shows evidence of the abscess into the sigmoid colon area. He has been seen by the general surgeon his plans for the surgical intervention tomorrow which will likely be a drainage of the abscess and diverting colostomy because of the severity of the disease. Receiving intravenous antibiotic therapy this time was Zosyn. We'll add a neuraxis given his significant difficulties. Cultures for further help direct the course of therapy discharge but likely will go home on a several week course of intravenous antibiotic therapy with Invanz if he can tolerate. Pain control appears to be adequate. He will need nutritional assistance if he is not able to recover his oral protein intake soon. Leukocytosis is due to the acute abscess. 11/12/2018 patient is status post the colectomy with ostomy placement and drainage of his pelvic abscess. Pain control is adequate at this point in time with the epidural any other pain medications that he is receiving. His white count is improved to 7.6. His fluids and increase to 510 is likely reactive from his current infectious process. Cultures are currently in process and he is without other acute change. If his gastrointestinal recovery is protracted may need temporary nutritional support. 11/17/2018 patient is doing considerably better. He is ingesting clear liquids without difficulties and fully will advanced diet in the morning. Midline catheter will be placed. Outpatient intravenous antibiotic therapy is arranged in the home setting. He'll receive Invanz 1 g a day. The family believes he can help with no difficulties. His reactionary thrombocytosis is improved. He looks forward to going home soon. We'll follow the office in 2 weeks. Current Visit: Yes Status: Acute Code(s): K50.814 - CROHN'S DISEASE OF BOTH SMALL AND LARGE INTESTINE W ABSCESS SNOMED Code(s): 15213778
[2018-11-18] MEDS: PIPERACILLIN-TAZOBACTAM 3.375 GM in SODIUM CHLORIDE 0.9% 100 ML IVPB SCH ×2 (02:39→09:38)
[2018-11-18] MEDS: ANIDULAFUNGIN 100 MG in SODIUM CHLORIDE 0.9% 100 ML IVPB SCH (02:40)
[2018-11-18] MEDS: LACTATED RINGERS 1,000 ML IV SCH ×2 (03:28→14:48)
[2018-11-18] MEDS: HYDROmorphone 1 MG/ML 1 ML SYRINGE IVP PRN (04:52)
[2018-11-18 05:30] VITALS: BP 159/95; PULSE 97; RESP 18; TEMP 97.6
[2018-11-18] MEDS: PANTOPRAZOLE 40 MG/10 ML VIAL IV SCH (07:46)
[2018-11-18] MEDS: predniSONE 20 MG TAB PO SCH (07:46)
[2018-11-18] MEDS: HEPARIN SODIUM,PORCINE 5,000 UNIT/ML 1 ML VIAL SQ SCH (07:47)
[2018-11-18] MEDS: HYDROcodone/APAP 5-325MG 1 EACH TAB PO PRN (09:32)
--- NOTE | 2018-11-18 11:55 | P.PN ---
<Yin Sanders Mike - Last Filed: 11/18/18 11:52> Subjective Progress Note Date: 11/18/18 CHIEF COMPLAINT: Crohn's disease HISTORY OF PRESENT ILLNESS: Patient is status post exploratory laparotomy, drainage of abscess, and sigmoid colectomy with end colostomy performed on 11/12/2018. Patient tolerated clear liquid diet yesterday. Advanced diet to full liquids for breakfast. Patient tolerated well. No nausea or vomiting. Ostomy with stool noted. Patient received midline IV today for IV antibiotics at discharge. WBC 13.3. PHYSICAL EXAM: VITAL SIGNS: Reviewed. GENERAL: Well-developed in no acute distress. HEENT: No sclera icterus. Extraocular movements grossly intact. Moist buccal mucosa. Head is atraumatic, normocephalic. ABDOMEN: Soft. Nondistended. Nontender. Ostomy to left lower quadrant with stool noted. NEUROLOGIC: Alert and oriented. Cranial nerves II through XII grossly intact. ASSESSMENT: 1. Crohn's disease 2. Status post exploratory laparotomy, drainage of abscess, and sigmoid colectomy with end colostomy PLAN: 1. Diet as tolerated 2. Activity as tolerated 3. Pain control 4. Incentive spirometry 5. Ongoing ostomy teaching 6. Monitor CBC. Continue antibiotics per ID. 7. Patient received midline IV catheter and will receive Invanz at discharge. Will order Invanz x 1 dose prior to discharge. Patient states antibiotics are being delivered tomorrow to his house. 8. Stable for discharge from a surgical standpoint. Patient to follow-up with Dr. Andres in one week. PAULA drain to remain intact at time of discharge and will be removed at follow-up appointment. Nurse practitioner note has been reviewed by physician. Signing provider agrees with the documented findings, assessment, and plan of care. Objective - Vital Signs Vital signs: Vital Signs Temp 97.6 F 11/18/18 04:45 Pulse 97 11/18/18 04:45 Resp 18 11/18/18 08:00 BP 159/95 11/18/18 04:45 Pulse Ox 97 11/18/18 04:45 Intake & Output 11/17/18 11/18/18 11/18/18 18:59 06:59 18:59 Intake Total 400 240 Output Total 210 10 Balance -210 390 240 Weight 75.7 kg Intake: Oral 400 240 Output: Drainage 10 10 Left Colostomy 10 Right Abdomen 10 Stool 200 0 Other: Voiding Method Toilet Toilet Toilet # Voids 2 1 - Labs CBC & Chem 7: 11/17/18 09:05 11/17/18 09:05 Labs: Microbiology - Last 24 Hours (Table) 11/16/18 11:32 Blood Culture - Preliminary Blood No Growth after 24 hours <Ryan Delgado - Last Filed: 11/18/18 17:16> Subjective As above. Patient was doing well today. He was discharge prior to my evaluati on. Objective - Vital Signs Vital signs: Vital Signs Temp 97.6 F 11/18/18 04:45 Pulse 97 11/18/18 04:45 Resp 18 11/18/18 08:00 BP 159/95 11/18/18 04:45 Pulse Ox 97 11/18/18 04:45 Intake & Output 11/17/18 11/18/18 11/18/18 18:59 06:59 18:59 Intake Total 400 240 Output Total 210 10 5 Balance -210 390 235 Weight 75.7 kg Intake: Oral 400 240 Output: Drainage 10 10 5 Left Colostomy 10 Right Abdomen 10 5 Stool 200 0 Other: Voiding Method Toilet Toilet Toilet # Voids 2 1 - Labs CBC & Chem 7: 11/17/18 09:05 11/17/18 09:05 Labs: Microbiology - Last 24 Hours (Table) 11/16/18 11:32 Blood Culture - Preliminary Blood No Growth after 48 hours
[2018-11-18] MEDS ORDERED: ERTAPENEM 1 GM in SODIUM CHLORIDE 0.9% 50 ML IVPB ONE (14:00)
--- NOTE | 2018-11-18 22:19 | DS ---
DISCHARGE SUMMARY FINAL DIAGNOSES: 1. Acute Crohn disease acute exacerbation with intraabdominal abscess, pelvic abscess, sigmoid colon stricture, status post bowel resection, exploratory laparotomy, as well as drainage of the abscess, sigmoid colectomy and end colostomy. 2. Possible sepsis present on admission secondary to above. 3. Crohn's disease, acute exacerbation. 4. Increased WBC. 5. Increased plasma lactic acid. 6. Increased creatinine with mild acute renal failure possibly from prerenal renal failure, acute blood loss, acute tubular necrosis. 7. Hyponatremia. 8. Elevated C-reactive protein up to 137. 9. History of gastrointestinal bleed. 10.History of appendectomy. 11.History of hernia surgery. 12.FULL CODE. DISCHARGE CONDITION: The patient is being discharged in stable condition with guarded prognosis. Total time taken 35 minutes. HISTORY OF PRESENT ILLNESS: This 33-year-old gentleman with a past medical history of multiple problems include acute Crohn's disease, admitted with abdominal discomfort and other features of Crohn's disease acute exacerbation. Evaluation showed intraabdominal abscess, pelvic abscess. The patient was seen by Dr. Andres who performed a laparotomy and bowel resection as well as drainage of abscess. Sigmoid colon stricture was also suspected on the CT scan. Please refer to Dr. Andres's notes and operative notes for further details. The patient tolerated the procedure well. Subsequently, patient had episodes of vomiting during the convalescence. Otherwise, overall patient was improving. The patient has been able to keep some clear liquids at this time. Surgery saw the patient and cleared the patient for discharge. The patient will be discharged in stable condition with guarded prognosis. The patient was also seen by Infectious Disease. IV outpatient antibiotics recommended. Tapering dose of steroids also recommended by Gastroenterology. On exam, vitals are stable cardiovascular abdomen soft, status post recent surgery. Nervous system, no focal deficits. INSTRUCTIONS: 1. Diet is cardiac. 2. Followup with Dr. William in 2 to 3 days. 3. Followup with Dr. Andres as advised. 4. Follow up with Infectious Disease as advised. MEDICATIONS: 1. Prednisone 20 mg daily as before. 2. Stelara 45 mg as before per Gastroenterology. 3. Invanz 1 g IV daily. 4. Multivitamins 1 p.o. daily. 5. [place] 5 mg every 6 h p.r.n. 6. Protonix 40 mg p.o. b.i.d. 7. Tylenol 500 mg every 6 hours p.r.n. Once again, the patient is being discharged in stable condition with guarded prognosis. MARRY / PALLAVIN: [id number] /
--- NOTE | 2018-11-18 22:58 | P.PN ---
Subjective Progress Note Date: 11/18/18 33-year-old male with a long-standing history of Crohn's disease with many complications has been treated with multiple agents as of late however failed multiple types of biological therapies and is now on Stelara. He thought he was having some relatively good response to this current course of therapy until he started developing increasing amounts of abdominal pain associated with nausea and emesis and loose stool. He felt very poorly and had fever and chills and constantly presents to the emergency center. Imaging studies are performed and surgical consult and gastroenterology consult were obtained. The patient is without evidence of significant abscess in consult was requested. The patient has NG tube in place which relates has helped him with some of the nausea and emesis or relieving symptoms abdominal pain. Pain medications are helping. 11/12/2018 the patient is status post surgery which is the colonic resection and drainage of the pelvic abscess. He is mostly comfortable with his epidural in place and is not comfortable with the Davalos catheter but understands its im portance. No further fever chill. No hematemesis melena or hematochezia. 11/17/2018 the patient is definitely feeling better. Having clear liquids without difficulty. Abdominal pain is doing quite well. Been well with his colostomy and having no difficulty with changing the pouch. He is up and moving and is feeling considerably better overall. No further fevers are noted. 11/18/2018 patient continues to feel better. 8 his solid breakfast with no difficulties. He is not having any worsening abdominal pain. No nausea or emesis. Looks forward to going home. Having no difficulties with his ostomy. Objective - Vital Signs Vital signs: Vital Signs Temp 97.6 F 11/18/18 04:45 Pulse 97 11/18/18 04:45 Resp 18 11/18/18 08:00 BP 159/95 11/18/18 04:45 Pulse Ox 97 11/18/18 04:45 Intake & Output 11/18/18 11/18/18 11/19/18 06:59 18:59 06:59 Intake Total 400 240 Output Total 10 5 Balance 390 235 Intake: Oral 400 240 Output: Drainage 10 5 Left Colostomy 10 Right Abdomen 5 Stool 0 Other: Voiding Method Toilet Toilet # Voids 1 - Exam 33-year-old male of thin build, much more comfortable HEENT: Anicteric conjunctiva are pink and moist nasal mucosa grossly intact without significant lesions, there is no thrush. Neck: The neck is supple without significant lymphadenopathy or thyromegaly. Lungs: Good bilateral air entry without significant crackles or wheezing. There is no significant bronchial sounds. There is no egophony or dullness. Heart: Regular rate and rhythm with an audible S1-S2, no S3 no S4. There is no significant murmur click or rub, PMI was nondisplaced. Abdomen: Bowel sounds are noted, ostomy is in place without acute difficulty abdomen is only minimally tender Extremities: The upper extremities have excellent pulses they are symmetric, no significant petechiae or telangiectasia. No splinter hemorrhages were noted. The lower extremities are free from significant edema. The peripheral pulses were 2+ and symmetric. Neuro: Awake alert oriented to person place and time. There are no acute new gross focal sensory motor deficits. - Labs CBC & Chem 7: 11/17/18 09:05 11/17/18 09:05 Labs: Microbiology - Last 24 Hours (Table) 11/16/18 11:32 Blood Culture - Preliminary Blood No Growth after 48 hours Laboratory Results WBC 13.3 k/uL (3.8-10.6) H 11/17/18 09:05 RBC 4.12 m/uL (4.30-5.90) L 11/17/18 09:05 Hgb 10.5 gm/dL (13.0-17.5) L 11/17/18 09:05 Hct 34.5 % (39.0-53.0) L 11/17/18 09:05 MCV 83.7 fL (80.0-100.0) 11/17/18 09:05 MCH 25.6 pg (25.0-35.0) 11/17/18 09:05 MCHC 30.6 g/dL (31.0-37.0) L 11/17/18 09:05 RDW 13.5 % (11.5-15.5) 11/17/18 09:05 Plt Count 460 k/uL (150-450) H 11/17/18 09:05 Neutrophils % 91 % 11/17/18 09:05 Lymphocytes % 4 % 11/17/18 09:05 Monocytes % 4 % 11/17/18 09:05 Eosinophils % 1 % 11/17/18 09:05 Basophils % 0 % 11/17/18 09:05 Neutrophils # 12.1 k/uL (1.3-7.7) H 11/17/18 09:05 Lymphocytes # 0.5 k/uL (1.0-4.8) L 11/17/18 09:05 Monocytes # 0.5 k/uL (0-1.0) 11/17/18 09:05 Eosinophils # 0.1 k/uL (0-0.7) 11/17/18 09:05 Basophils # 0.0 k/uL (0-0.2) 11/17/18 09:05 Hypochromasia Slight 11/13/18 05:35 ESR 20 mm/hr (0-15) H 11/10/18 06:57 Sodium 135 mmol/L (137-145) L 11/17/18 09:05 Potassium 4.5 mmol/L (3.5-5.1) 11/17/18 09:05 Chloride 97 mmol/L (98-107) L 11/17/18 09:05 Carbon Dioxide 30 mmol/L (22-30) 11/17/18 09:05 Anion Gap 8 mmol/L 11/17/18 09:05 BUN 13 mg/dL (9-20) 11/17/18 09:05 Creatinine 0.95 mg/dL (0.66-1.25) 11/17/18 09:05 Est GFR (CKD-EPI)AfAm >90 (>60 ml/min/1.73 sqM) 11/17/18 09:05 Est GFR (CKD-EPI)NonAf >90 (>60 ml/min/1.73 sqM) 11/17/18 09:05 Glucose 78 mg/dL (74-99) 11/17/18 09:05 POC Glucose (mg/dL) 89 mg/dL (75-99) 11/13/18 01:42 POC Glu Paramedic Supervisor ID Maile Abdi 11/13/18 01:42 Lactic Ac Sepsis Rflx Y 11/09/18 08:29 Plasma Lactic Acid Reece 1.0 mmol/L (0.7-2.0) 11/09/18 11:46 Calcium 8.7 mg/dL (8.4-10.2) 11/17/18 09:05 Total Bilirubin 0.5 mg/dL (0.2-1.3) 11/09/18 07:28 AST 11 U/L (17-59) L 11/09/18 07:28 ALT 17 U/L (21-72) L 11/09/18 07:28 Alkaline Phosphatase 84 U/L (38-126) 11/09/18 07:28 C-Reactive Protein 210.0 mg/L (<10.0) H 11/14/18 05:25 Total Protein 6.8 g/dL (6.3-8.2) 11/09/18 07:28 Albumin 3.8 g/dL (3.5-5.0) 11/09/18 07:28 Amylase 51 U/L (30-110) 11/09/18 07:28 Lipase 119 U/L (23-300) 11/09/18 07:28 Urine Color Yellow 11/09/18 08:26 Urine Appearance Clear (Clear) 11/09/18 08:26 Urine pH 6.5 (5.0-8.0) 11/09/18 08:26 Ur Specific [place] 1.020 (1.001-1.035) 11/09/18 08:26 Urine Protein Trace (Negative) H 11/09/18 08:26 Urine Glucose (UA) Negative (Negative) 11/09/18 08:26 Urine Ketones Negative (Negative) 11/09/18 08:26 Urine Blood Negative (Negative) 11/09/18 08:26 Urine Nitrite Negative (Negative) 11/09/18 08:26 Urine Bilirubin Negative (Negative) 11/09/18 08:26 Urine Urobilinogen <2.0 mg/dL (<2.0) 11/09/18 08:26 Ur Leukocyte Esterase Negative (Negative) 11/09/18 08:26 Blood Type O Positive 11/13/18 00:36 Blood Type Confirm O Positive 11/13/18 01:31 Blood Type Recheck CABO Indicated 11/13/18 00:36 Antibody Screen NEGATIVE 11/13/18 00:36 Spec Expiration Date 11/16/2018 - 8543 11/13/18 00:36 Microbiology 11/16/18 11:32 Blood Blood Culture - Preliminary No Growth after 48 hours 11/10/18 17:43 Blood Blood Culture - Final No Growth after 144 hours 11/12/18 16:26 Hip - Left Anaerobic Culture - Final Anaerobic Gm Negative Bacilli Anaerobic Gram Positive Cocci Anaerobic Gm Negative Bacilli#2 11/12/18 16:26 Hip - Left Gram Stain - Final 11/12/18 16:26 Hip - Left Wound Culture - Final Escherichia coli 11/11/18 01:45 Urine,Voided Urine Culture - Final Assessment and Plan (1) Large bowel obstruction Status: Acute Code(s): K56.609 - UNSP INTESTNL OBST, UNSP TO PARTIAL VERSUS COMPLETE OBST SNOMED Code(s): 936731150 (2) Crohn's disease of both small and large intestine with abscess Narrative/Plan: 33-year-old male with a long-standing history of Crohn's disease has been t reated with multiple agents including recently biologicals that were not giving him good relief of his symptoms. He was changed to Stelara and was being monitored. He then had the relatively sudden onset of worsening pain associated with nausea and emesis and loose stool. He presented to the emergency center. Evaluations were performed in the computed tomography scan shows evidence of the abscess into the sigmoid colon area. He has been seen by the general surgeon his plans for the surgical intervention tomorrow which will likely be a drainage of the abscess and diverting colostomy because of the severity of the disease. Receiving intravenous antibiotic therapy this time was Zosyn. We'll add a neuraxis given his significant difficulties. Cultures for further help direct the course of therapy discharge but likely will go home on a several week course of intravenous antibiotic therapy with Invanz if he can tolerate. Pain control appears to be adequate. He will need nutritional assistance if he is not able to recover his oral protein intake soon. Leukocytosis is due to the acute abscess. 11/12/2018 patient is status post the colectomy with ostomy placement and drainage of his pelvic abscess. Pain control is adequate at this point in time with the epidural any other pain medications that he is receiving. His white count is improved to 7.6. His fluids and increase to 510 is likely reactive from his current infectious process. Cultures are currently in process and he is without other acute change. If his gastrointestinal recovery is protracted may need temporary nutritional support. 11/17/2018 patient is doing considerably better. He is ingesting clear liquids without difficulties and fully will advanced diet in the morning. Midline catheter will be placed. Outpatient intravenous antibiotic therapy is arranged in the home setting. He'll receive Invanz 1 g a day. The family believes he can help with no difficulties. His reactionary thrombocytosis is improved. He looks forward to going home soon. We'll follow the office in 2 weeks. 11/18/2018 patient has further improvement. Tolerated solid food without difficulties. Having no nausea or emesis and no significant abdominal pain. Overall is pleased with how he is doing looks for going home today. Outpatient intravenous antibiotic therapy has been arranged. Follow-up in the office in 2 weeks. Status: Acute Code(s): K50.814 - CROHN'S DISEASE OF BOTH SMALL AND LARGE INTESTINE W ABSCESS SNOMED Code(s): 38529228
[2018-11-19] MEDS ORDERED: PANTOPRAZOLE 40 MG TABLET PO SCH (07:30)
--- NOTE | 2018-11-21 09:12 | CDI ---
Documentation Clarification Form Date: 11/21/2018 From: Maria T Morales Phone: If questions call Muriel Jeffers @ [phone], Hours-8:30 am & 5 pm MDominic Hawkins Admit Date: 11/09/2018 8:30:00 AM Patient Name: Navin Martinez Visit Number: [id number] Discharge Date: 11/18/2018 3:28:00 PM ATTENTION: The Clinical Documentation Specialists (CDI) and [facility] Coding Staff appreciate your assistance in clarifying documentation. Please respond to the clarification below the line at the bottom and electronically sign. The CDI & [facility] Coding staff will review the response and follow-up if needed. Please note: Queries are made part of the Legal Health Record. If you have any questions, please contact the author of this message via ITS. Dr. Bassam Gaffney Documentation states: acute blood loss per DS. History/Risk Factors: sepsis, ATN, peritoneal abscess, Crohn's w obstruction Clinical indicators: HGB from 14.1 to 10.5 HCT from 45.1 to 34.5 Treatment: no transfusion given, IV fluids Clinical significance of diagnostic testing and treatment CANNOT be assumed or coded without physician documentation of significance if any. Please clarify what abnormal laboratory signifies: Acute blood loss anemia Iron deficiency anemia Anemia Abnormal Lab Value Unable to determine Other, please specify Unable to determine MTDD
== END 2018-11-18 15:28 | disposition home health service (06) | DRG 853 ==
LOC: EC 06:54 → 4SSUR 08:30 → 2SICU 11-13 02:02 → 4MS4W 11-14 15:32
PROVIDERS: ADMIT Internal Medicine; ATTEND Internal Medicine
PROC: 0D9670Z Drainage of Stomach with Drainage Device, Via Natural or Artificial Opening (ICD-10-PCS; 2018-11-11)
PROC: 0D1M0Z4 Bypass Descending Colon to Cutaneous, Open Approach (ICD-10-PCS; 2018-11-12)
PROC: 0W9G0ZX Drainage of Peritoneal Cavity, Open Approach, Diagnostic (ICD-10-PCS; 2018-11-12)
PROC: 0DTN0ZZ Resection of Sigmoid Colon, Open Approach (ICD-10-PCS; principal; 2018-11-12 15:15)
PROC: 05HB33Z Insertion of Infusion Device into Right Basilic Vein, Percutaneous Approach (ICD-10-PCS; 2018-11-18)
DX: A41.9 Sepsis, unspecified organism (principal); K65.1 Peritoneal abscess; N17.0 Acute kidney failure with tubular necrosis; K50.114 Crohn's disease of large intestine with abscess; K50.112 Crohn's disease of large intestine with intestinal obstruction; E87.1 Hypo-osmolality and hyponatremia; E86.1 Hypovolemia; E86.0 Dehydration; Z79.899 Other long term (current) drug therapy; Z98.890 Other specified postprocedural states; Z90.49 Acquired absence of other specified parts of digestive tract; Z88.8 Allergy status to other drugs, medicaments and biological substances; Z91.030 Bee allergy status
CPT/HCPCS: 36410; 36415; 71045; 74018; 74177; 76937; 80048; 80053; 81003; 82150; 83605; 83690; 84132; 85025; 85347; 85652; 86140; 86850; 86900; 86901; 87040; 87070; 87075; 87077; 87086; 87186; 87205; 88307; 93005; 96361; 96374; 96375; 99285

== ENCOUNTER 2019-01-06 09:53 | Emergency (ER) | payer BC ==
[2019-01-06 09:59] VITALS: BP 117/71; PULSE 98; RESP 18; TEMP 97.9
--- NOTE | 2019-01-06 10:26 | ED ---
General Adult HPI - General Chief complaint: Skin/Abscess/Foreign Body Stated complaint: Open wound Time Seen by Provider: 01/06/19 10:03 Source: patient, RN notes reviewed, old records reviewed Mode of arrival: ambulatory Limitations: no limitations - History of Present Illness Initial comments: Patient is a 33-year-old male who presents emergency department today for incision site dehiscence after Patient had a colostomy placed in early November. Patient reports that over the past week he was doing a lot of heavy lifting. He noticed the wound open slightly on Saturday. He presents today with 2 small openings measuring 1 cm at the lower aspect of his midline incision site. Patient reports that his colostomy site has otherwise been doing well. He reports a small amount of drainage from the dehiscence. He denies any fevers or chills. Reports all normal bowel habits wrist colostomy. - Related Data Home Medications Medication Instructions Recorded Confirmed Ustekinumab [Stelara] 45 mg SQ Q56D 11/02/18 01/06/19 Previous Rx's Medication Instructions Recorded Cephalexin [Keflex] 500 mg PO Q6HR 3 Days #12 cap 01/06/19 Allergies Allergy/AdvReac Type Severity Reaction Status Date / Time adalimumab [From Humira] Allergy Anaphylaxis Verified 01/06/19 10:21 azathioprine [From Imuran] Allergy Anaphylaxis Verified 01/06/19 10:21 infliximab [From Remicade] Allergy Anaphylaxis Verified 01/06/19 10:21 venom-honey bee Allergy Anaphylaxis Verified 01/06/19 10:21 Review of Systems ROS Statement: Those systems with pertinent positive or pertinent negative responses have been documented in the HPI. ROS Other: All systems not noted in ROS Statement are negative. Past Medical History Past Medical History: GI Bleed Additional Past Medical History / Comment(s): CROHNS last 9-10 years History of Any Multi-Drug Resistant Organisms: None Reported Past Surgical History: Appendectomy, Bowel Resection, Hernia Repair Additional Past Surgical History / Comment(s): COLONOSCOPIES/. EYE SURG TO CORRECT LAZY EYE, colostomy bag placed 11/12/2018 Past Anesthesia/Blood Transfusion Reactions: No Reported Reaction Past Psychological History: No Psychological Hx Reported Smoking Status: Never smoker Past Alcohol Use History: Occasional Past Drug Use History: None Reported - Past Family History Mother Family Medical History: No Reported History General Exam - General Exam Comments Initial Comments: This is a 33-year-old male. Alert and oriented 3. No distress. Limitations: no limitations General appearance: alert, in no apparent distress Head exam: Present: atraumatic, normocephalic, normal inspection Eye exam: Present: normal appearance, PERRL, EOMI. Absent: scleral icterus, conjunctival injection, periorbital swelling ENT exam: Present: normal exam, mucous membranes moist Neck exam: Present: normal inspection. Absent: tenderness, meningismus, lymphadenopathy Respiratory exam: Present: normal lung sounds bilaterally. Absent: respiratory distress, wheezes, rales, rhonchi, stridor Cardiovascular Exam: Present: regular rate, normal rhythm, normal heart sounds. Absent: systolic murmur, diastolic murmur, rubs, gallop, clicks GI/Abdominal exam: Present: soft, normal bowel sounds, other (Evidence of colostomy site appearing well. Patient has 2 cm x 1 cm wound dehiscence over the lower portion of the incision site. Rectus sheath is visible.). Absent: distended, tenderness, guarding, rebound, rigid Extremities exam: Present: normal inspection, full ROM, normal capillary refill. Absent: tenderness, pedal edema, joint swelling, calf tenderness Back exam: Present: normal inspection Neurological exam: Present: alert, oriented X3, CN II-XII intact Course Vital Signs 01/06/19 09:55 Temperature 97.9 F Pulse Rate 98 Respiratory 18 Rate Blood Pressure 117/71 O2 Sat by Pulse 98 Oximetry Medical Decision Making - Medical Decision Making is a 33-year-old male with a history of Crohn's colitis with recent colostomy placement in beginning of November. He presents today after doing heavy lifting this past week. There is concern for wound dehiscence. He has an area of dehiscence measuring 1 cm x 2 cm the lower portion of his incision site. I discussed this is due to tension and likely do heavy lifting over the past week. I discussed the Patient to be placed on short course of antibiotics. Wound culture completed. Patient had Steri-Strips placed over the area discussed no heavy lifting. He has an appointment on with Dr. Andres. Disposition Clinical Impression: Surgical wound dehiscence Disposition: HOME SELF-CARE Condition: Good Instructions (If sedation given, give patient instructions): Wound Dehiscence (ED) Additional Instructions: Patient advised to not heavy lifting or strenuous activity. Remain dressing and take antibiotic as prescribed. Patient can use the Steri-Strips over the area of dehiscence. Return to emergency department if any alarming signs or symptoms occur. Prescriptions: Cephalexin [Keflex] 500 mg PO Q6HR 3 Days #12 cap Is patient prescribed a controlled substance at d/c from ED?: No Referrals: Navin William DO [Primary Care Provider] - 1-2 days Roshan Andres MD [STAFF PHYSICIAN] - 1-2 days Time of Disposition: 10:24
== END 2019-01-06 10:40 | disposition home or self-care (01) ==
LOC: EC 09:53
DX: T81.31XA Disruption of external operation (surgical) wound, not elsewhere classified, initial encounter (principal); Z93.3 Colostomy status; Z88.8 Allergy status to other drugs, medicaments and biological substances; Z91.030 Bee allergy status
CPT/HCPCS: 87070; 87205; 99284

== ENCOUNTER → 2019-03-16 | Outpatient (CLI) | payer BC ==
[2019-03-16 16:42] LABS: HGB 13.4 gm/dL (13.0-17.5); MCH 27.7 pg (25.0-35.0); MCHC 31.9 g/dL (31.0-37.0); MCV 86.7 fL (80.0-100.0); Platelet Count 291 k/uL (150-450); RBC 4.84 m/uL (4.30-5.90); RDW 13.8 % (11.5-15.5); WBC 7.1 k/uL (3.8-10.6)
[2019-03-16 17:46] LABS: Erythrocyte Sedimentation Rate 8 mm/hr (0-15)
[2019-03-17 01:05] LABS: ALT 30 U/L (10-49); AST 31 U/L (14-35); African American GFR (CKD) 83.1 (60.0-200.0); Albumin/Globulin Ratio 2.05 (1.60-3.17); Alkaline Phosphatase 122 U/L (41-126); BUN/Creat Ratio 13.08 Ratio (12.00-20.00); C Reactive Protein <0.4 mg/dL (0.0-0.8); Calcium 9.6 mg/dL (8.7-10.3); Carbon Dioxide 28.7 mmol/L (21.6-31.8); Chloride 104 mmol/L (96-109); Globulin 2.2 g/dL (1.6-3.3); Glucose 82 mg/dL (70-110); Non-African American GFR(CKD) 71.7 (60.0-200.0); Potassium 4.6 mmol/L (3.5-5.5); Sodium 139 mmol/L (135-145); Total Bilirubin 0.3 mg/dL (0.3-1.2); Total Protein 6.7 g/dL (6.2-8.2)
== END | disposition home or self-care (01) ==
LOC: LABWHC1 15:59
PROVIDERS: ATTEND Internal Medicine
DX: K50.80 Crohn's disease of both small and large intestine without complications (principal)
CPT/HCPCS: 36415; 80053; 82652; 83993; 85027; 85652; 86140

== ENCOUNTER 2019-05-08 07:24 | Day surgery (SDC) | payer BC ==
[2019-05-06 15:37] VITALS: BMI 24.9
[~2019-05-08 07:24] MED LIST changes: -LIDOCAINE 1% 20 ML VIAL (10MG/ML) FOR IV START INTRADERMA ONE; +LIDOCAINE 1% 20 ML VIAL (10MG/ML) FOR IV START INTRADERMA PRN; -LIDOCAINE 1% INJ 10MG/ML (20 ML MDV) ONE; -PROPOFOL 10 MG/ML 20 ML VIAL IV ONE
[2019-05-08 07:45] VITALS: RESP 16; TEMP 97.9
[2019-05-08] MEDS ORDERED: PROPOFOL 10 MG/ML 20 ML VIAL IV ONE (08:28)
--- NOTE | 2019-05-08 08:36 | P.GSHP ---
History of Present Illness H&P Date: 05/08/19 Chief Complaint: history Crohn's disease this a 34-year-old male with a previous history Crohn's disease. Patient resents today for colonoscopy. He's had a previous sigmoid resection for Crohn's disease Past Medical History Past Medical History: GI Bleed Additional Past Medical History / Comment(s): CROHNS last 9-10 years History of Any Multi-Drug Resistant Organisms: None Reported Past Surgical History: Appendectomy, Bowel Resection, Hernia Repair Additional Past Surgical History / Comment(s): COLONOSCOPIES/. EYE SURG TO [place] ECT LAZY EYE, colostomy bag placed 11/12/2018 Past Anesthesia/Blood Transfusion Reactions: No Reported Reaction Smoking Status: Never smoker - Past Family History Mother Family Medical History: No Reported History Medications and Allergies Home Medications Medication Instructions Recorded Confirmed Type Ustekinumab [Stelara] 45 mg SQ Q56D 11/02/18 05/08/19 History Allergies Allergy/AdvReac Type Severity Reaction Status Date / Time adalimumab [From Humira] Allergy Anaphylaxis Verified 05/08/19 07:35 azathioprine [From Imuran] Allergy Anaphylaxis Verified 05/08/19 07:35 infliximab [From Remicade] Allergy Anaphylaxis Verified 05/08/19 07:35 venom-honey bee Allergy Anaphylaxis Verified 05/08/19 07:35 Surgical - Exam Vital Signs Temp Pulse Resp BP Pulse Ox 97.9 F 69 16 147/85 99 05/08/19 07:43 05/08/19 07:43 05/08/19 07:43 05/08/19 07:43 05/08/19 07:43 - General well developed, well nourished, no distress - Eyes PERRL - ENT normal pinna - Neck no masses - Respiratory normal expansion - Cardiovascular Rhythm: regular - Abdomen colostomy in left lower quadrant Abdomen: soft, non tender Assessment and Plan Assessment: history of Crohn's disease. We'll perform colonoscopy.
--- NOTE | 2019-05-08 08:50 | P.OP ---
Date of Procedure: 05/08/19 Preoperative Diagnosis: Crohn's disease Postoperative Diagnosis: Crohn's disease Procedure(s) Performed: Colonoscopy Anesthesia: MAC Surgeon: Roshan Andres Pathology: other (Multiple colonic Biopsy) Condition: stable Disposition: PACU Description of Procedure: The patient's placed on the endoscopy table in the lateral position. She received IV sedation. Digital rectal exam was performed which revealed no abnormalities. The flexible colonoscope was then placed patient anus. The rectal stump measured approximately 18 cm. Scope was withdrawn. There is evidence of some inflammatory changes the rectum. This was biopsied. The scope was withdrawn for patient. Next the patient rotator was back. Digital exam of colostomy performed. The flexible colonoscope was then placed the patient's colostomy and passed rotator entire colon. The ileocecal valve was visualized. The colon appeared to have a mildly inflamed appearance. Biopsies of the right, transverse and descending colon were performed. The scope was withdrawn for patient.
[2019-05-08 09:15] VITALS: BP 129/86; PULSE 63
== END 2019-05-08 09:25 | disposition home or self-care (01) ==
LOC: ORWHC2ENDO 07:24
PROVIDERS: ATTEND Surgery
DX: K50.90 Crohn's disease, unspecified, without complications (principal); K52.9 Noninfective gastroenteritis and colitis, unspecified; K62.89 Other specified diseases of anus and rectum; Z93.3 Colostomy status; Z90.49 Acquired absence of other specified parts of digestive tract; Z90.89 Acquired absence of other organs; Z98.890 Other specified postprocedural states; Z87.19 Personal history of other diseases of the digestive system; Z79.899 Other long term (current) drug therapy; Z88.8 Allergy status to other drugs, medicaments and biological substances; Z91.030 Bee allergy status
CPT/HCPCS: 44401; 88305; J2704; 45380

== ENCOUNTER → 2019-07-22 | Outpatient (CLI) | payer BC ==
[2019-07-22 15:54] LABS: HGB 15.9 gm/dL (13.0-17.5); MCH 28.9 pg (25.0-35.0); MCHC 32.4 g/dL (31.0-37.0); MCV 89.2 fL (80.0-100.0); Platelet Count 271 k/uL (150-450); Potassium 4.3 mmol/L (3.5-5.1); RDW 12.9 % (11.5-15.5); WBC 8.6 k/uL (3.8-10.6)
== END | disposition home or self-care (01) ==
LOC: LABPAT 15:20
PROVIDERS: ATTEND Surgery
DX: Z01.812 Encounter for preprocedural laboratory examination (principal); K52.9 Noninfective gastroenteritis and colitis, unspecified
CPT/HCPCS: 36415; 80051; 85027

== ENCOUNTER 2019-07-29 08:30 | Inpatient (IN) | payer BC ==
[2019-07-24 09:15] VITALS: BMI 25.7
[~2019-07-29 08:30] MED LIST changes: +DEXAMETHASONE SOD PHOSPHATE 10 MG/ML 1 ML VIAL IV ONE; +HEPARIN SODIUM,PORCINE 5,000 UNIT/ML 1 ML VIAL SQ ONE; +HYDROmorphone 0.5 MG/0.5 ML SYRINGE IVP PRN; -LACTATED RINGERS 1,000 ML IV SCH; +LIDOCAINE 1% (10MG/ML) FOR IV START INTRADERMA PRN; -LIDOCAINE 1% 20 ML VIAL (10MG/ML) FOR IV START INTRADERMA PRN; +MIDAZOLAM 2 MG/2 ML VIAL IV PRN; +ONDANSETRON 4 MG/2 ML VIAL IVP ONE; +fentaNYL (PF) 50 MCG/ML 2 ML AMP IVP PRN; +metroNIDAZOLE-NS PMX 500 MG in SALINE 1 100ML.BAG IVPB ONE
[2019-07-29] MEDS: LACTATED RINGERS 1,000 ML IV SCH (10:50)
[2019-07-29] MEDS ORDERED: MIDAZOLAM 2 MG/2 ML VIAL IVP ONE (11:10)
--- NOTE | 2019-07-29 11:13 | P.GSHP ---
History of Present Illness H&P Date: 07/29/19 Chief Complaint: History of colonic obstruction This is a 34-year-old male with a previous history of colonic stricture secondary to ulcerative colitis. Patient presents today for reversal of colostomy. Patient aware the risks of surgery including possible colostomy, anastomotic leak, wound infection Past Medical History Past Medical History: GI Bleed Additional Past Medical History / Comment(s): CROHNS, hx bowel obstruction/abscess 10/2018, History of Any Multi-Drug Resistant Organisms: None Reported Past Surgical History: Appendectomy, Bowel Resection, Hernia Repair Additional Past Surgical History / Comment(s): COLONOSCOPIES, EYE SURG TO CORRECT LAZY EYE, bowel resection with colostomy 11/12/2018 Past Anesthesia/Blood Transfusion Reactions: No Reported Reaction Smoking Status: Never smoker - Past Family History Mother Family Medical History: No Reported History Medications and Allergies Home Medications Medication Instructions Recorded Confirmed Type Ustekinumab [Stelara] 45 mg SQ Q56D 11/02/18 07/29/19 History Allergies Allergy/AdvReac Type Severity Reaction Status Date / Time adalimumab [From Humira] Allergy Anaphylaxis Verified 07/29/19 10:39 azathioprine [From Imuran] Allergy Anaphylaxis Verified 07/29/19 10:39 infliximab [From Remicade] Allergy Anaphylaxis Verified 07/29/19 10:39 venom-honey bee Allergy Anaphylaxis Verified 07/29/19 10:39 Surgical - Exam Vital Signs Temp Pulse Resp BP Pulse Ox 98.1 F 81 16 134/81 100 07/29/19 10:45 07/29/19 10:45 07/29/19 10:45 07/29/19 10:45 07/29/19 10:45 - General well developed, well nourished, no distress - Eyes PERRL - ENT normal pinna - Neck no masses - Respiratory normal expansion - Cardiovascular Rhythm: regular - Abdomen Abdomen: soft, non tender Assessment and Plan Assessment: History of ulcerative colitis with colonic stricture and subsequent colostomy with bowel resection. Patient presents today for reversal of colostomy.
[2019-07-29] MEDS ORDERED: HYDROCORTISONE SUCCINATE 100 MG/2 ML VIAL IVP ONE (11:20)
[2019-07-29] MEDS ORDERED: PHENYLEPHRINE-0.9% NACL SYG 1 MG/10 ML SYRINGE ONE (11:23)
[2019-07-29] MEDS ORDERED: NEOSTIGMINE 1 MG/ML 10 ML VIAL ONE (11:23)
[2019-07-29] MEDS ORDERED: LIDOCAINE 1% INJ 10MG/ML (20 ML MDV) ONE (11:23)
[2019-07-29] MEDS ORDERED: MIDAZOLAM 2 MG/2 ML VIAL ONE (11:23)
[2019-07-29] MEDS ORDERED: ROCURONIUM BROMIDE 10 MG/ML 5 ML VIAL IV ONE (11:23)
[2019-07-29] MEDS ORDERED: GLYCOPYRROLATE 0.2 MG/ML 2 ML VIAL ONE (11:23)
[2019-07-29] MEDS ORDERED: fentaNYL (PF) 50 MCG/ML 2 ML AMP ONE (11:23)
[2019-07-29] MEDS ORDERED: SUCCINYLCHOLINE CHLORIDE 100 MG/5 ML SYR IV ONE (11:23)
[2019-07-29] MEDS ORDERED: PROPOFOL 10 MG/ML 20 ML VIAL IV ONE (11:23)
[2019-07-29] MEDS ORDERED: LACTATED RINGERS 1,000 ML IV ONE ×2 (12:19→13:15)
[2019-07-29] MEDS ORDERED: NALOXONE 0.4 MG/ML 1 ML VIAL IV PRN (12:23)
[2019-07-29] MEDS: ROPIVACAINE 250 MG, HYDROMORPHONE (PF) 5 MG in SODIUM CHLORIDE 0.9% 200 ML EPIDURAL PRN ×2 (13:53→14:47)
[2019-07-29] MEDS ORDERED: METOCLOPRAMIDE 5 MG/ML 2 ML VIAL IVP PRN (13:55)
[2019-07-29] MEDS ORDERED: ONDANSETRON 4 MG/2 ML VIAL IVP PRN (13:55)
[2019-07-29] MEDS ORDERED: BENZOCAINE/MENTHOL LOZENG 1 EACH LOZENGE MUCOUS MEM PRN (13:55)
--- NOTE | 2019-07-29 14:02 | P.OP ---
Date of Procedure: 07/29/19 Preoperative Diagnosis: History of colon stricture secondary to ulcerative colitis Postoperative Diagnosis: History of colon stricture secondary to ulcerative colitis Procedure(s) Performed: Reversal of colostomy Takedown of splenic flexure Lysis of adhesions Repair of incisional hernia Partial omentectomy Anesthesia: JILLIAN Surgeon: Roshan Andres Estimated Blood Loss (ml): 100 Pathology: other (Omentum, colon) Condition: stable Disposition: PACU Description of Procedure: The patient's placed the operative table in supine position. He received general anesthesia. He was then placed in dorsal lithotomy position. His abdomen was prepped and draped usual sterile fashion. The patient a colostomy in the left lower quadrant. A Ioban dressing was used. The skin was incised with a previous Scar in the left cautery the subcutaneous tissue divided. The patient had an incisional hernia. The fascia was opened midline. The fascia scissors and was extended cephalad. There were adhesions to the anterior abdominal wall. These were lysed with sharp dissection. Approximately 30 minutes of operative time used to lyse adhesions. The Bookwalter tract placed a wound. The colostomy was visualized. The colostomy was then transected at the skin level using the LARRY stapler. At this point the colon was mobilized by dividing the white line of Toldt's. And then the splenic flexure was taken down with the Harmonic scissors. The omentum was taken off of the colon using the electrocautery. The nonviable omentum was then transected with the Harmonic scissors to pathology. The colon was adequately mobilized to reach the pelvis. The small bowel was then adherent to the pelvis. The small bowel adhesions were lysed using sharp dissection. And then the rectal stump was visualized. At this point the proximal colon was opened and the 25 mm EEA anvil was placed in the colon. The GI stapler was then fired across the colon and then the anvil was driven through the staple line. Next the assistant designer placed the EEA stapler in the patient's anus and then the spike was driven through the anterior rectal wall. The anvil was then connected to the stapler. The stapler was then closed and fired. The stapler was withdrawn. 2 intact tissue rings were withdrawn. Using a high The bowel proximal to the anastomosis was occluded and then using a sigmoidoscope and air insufflation the anastomosis was checked. There is no evidence of any extravasation of air. There is no evidence of leak. The sigmoid scope was withdrawn. This point the abdomen was irrigated. There is no bleeding seen. The colostomy site was visualized. The fascia was closed with 0 Vicryl suture. The fascia in the midline was then closed using 0 PDS suture. The incisional hernias repaired during fascial closure. The skin was closed peyton. And then the colostomy was dissected using electrocautery and removed. The skin was closed the peyton. Silverlon dressing was applied. Patient top she will was sent to recovery room in stable condition.
[2019-07-29 16:24] LABS: Basophils % (A) 0 %; Eosinophils % (A) 0 %; HCT 45.9 % (39.0-53.0); HGB 14.6 gm/dL (13.0-17.5); Lymphocytes # (A) 1.1 k/uL (1.0-4.8); Lymphocytes % (A) 9 %; MCH 28.6 pg (25.0-35.0); MCHC 31.8 g/dL (31.0-37.0); MCV 90.1 fL (80.0-100.0); Mean Platelet Volume 8.5; Monocytes # (A) 0.4 k/uL (0-1.0); Monocytes % (A) 3 %; Neutrophils # (A) 10.6 k/uL (1.3-7.7); Neutrophils % (A) 87 %; Platelet Count 279 k/uL (150-450); RDW 12.7 % (11.5-15.5); WBC 12.2 k/uL (3.8-10.6)
[2019-07-29 16:45] LABS: African American GFR (CKD) >90 (>60 ml/min/1.73 sqM); Anion Gap 8 mmol/L; Blood Urea Nitrogen 18 mg/dL (9-20); Calcium 8.8 mg/dL (8.4-10.2); Carbon Dioxide 28 mmol/L (22-30); Chloride 101 mmol/L (98-107); Glucose 119 mg/dL (74-99); Non-African American GFR(CKD) 78 (>60 ml/min/1.73 sqM); Potassium 4.3 mmol/L (3.5-5.1); Sodium 137 mmol/L (137-145)
[2019-07-29] MEDS: DEXTROSE 5%-0.45% NACL 1,000 ML IV SCH ×2 (18:30→23:07)
[2019-07-29] MEDS: HEPARIN SODIUM,PORCINE 5,000 UNIT/ML 1 ML VIAL SQ SCH ×2 (18:30→23:08)
[2019-07-29] MEDS: PANTOPRAZOLE 40 MG/10 ML VIAL IVP SCH (20:14)
[2019-07-29] MEDS: FAMOTIDINE 20 MG/2 ML VIAL IV SCH (20:14)
--- NOTE | 2019-07-29 20:51 | CONS ---
CONSULTATION DATE OF SERVICE: 07/29/2019 REASON FOR CONSULTATION: Advice regarding Crohn's disease and other medical issues requested by Dr. Andres. HISTORY OF PRESENT ILLNESS: This 34-year-old gentleman with a past medical history of GI bleed, history of Crohn's disease, bowel obstruction, appendectomy, history of bowel resection, hernia repair, being followed by Dr. William in the outpatient setting, had chronic stricture and a colostomy. The patient underwent reversal of colostomy as well as take takedown splenic flexure, repair of incisional hernia, partial omentectomy by Dr. Andres. The patient tolerated the procedure well. The patient being closely monitored. There is no history of chest pain. No history of palpitations. No history of headache, loss of consciousness, seizures at this time. PAST MEDICAL HISTORY: History of possible Crohn disease with sigmoid stricture and multiple complications of colectomy. History of sepsis. MEDICATIONS: Home medications are Stelara 45 mg subcu q.56 days. ALLERGIES: HUMIRA, REMICADE AND HONEY BEE VENOM. FAMILY HISTORY: No history of heart disease or strokes in the family. SOCIAL HISTORY: No history of smoking. Occasional alcohol intake. REVIEW OF SYSTEMS: ENT: No diminished vision. No diminished hearing. CARDIOVASCULAR: No angina./ RESPIRATION: No cough or hemoptysis. GI as mentioned earlier. no dysuria. NERVOUS SYSTEMS: No numbness or weakness. ALLERGY/IMMUNOLOGY: No asthma or hayfever. MUSCULOSKELETAL as mentioned earlier. HEMATOLOGY/ONCOLOGY: No history of anemia. ENDOCRINE: No history of diabetes or hypothyroid. CONSTITUTIONAL: As mentioned earlier. DERMATOLOGY: Negative. RHEUMATOLOGY negative. PSYCHIATRY as mentioned earlier. PHYSICAL EXAMINATION: Alert and oriented times three. Pulse is 106. Blood pressure 130/82. Respirations 20. Temperature is normal. Pulse ox 98% on room air. HEENT: Conjunctivae normal. Oral mucosa moist. NECK is no jugular venous distention. No carotid bruit. No lymph node enlargement. Cardiovascular system: S1, S2 muffled. RESPIRATORY: Breath sounds diminished in the bases. No rhonchi. No crackles. ABDOMEN: Soft, status post surgery. LEGS: No edema. No swelling. NERVOUS SYSTEM: Higher functions as mentioned earlier. Moves all 4 limbs. No focal motor or sensory deficits. Lymphatics: No lymph nodes palpable in the neck, axillae or groin. SKIN: No ulcer, no rashes or no bleeding. JOINTS: No active deforming arthropathy. LAB STUDIES: WBC 12.2, hemoglobin 14.6, glucose 119. ASSESSMENT: 1. Status post reversal of colostomy, takedown of splenic flexure. 2. History of colectomy for sigmoid colon stricture secondary to Crohn's disease. 3. History of intraabdominal abscess, possibly secondary to Crohn's disease and sepsis previously. 4. History of gastrointestinal bleed. 5. History of bowel obstruction. 6. History of appendectomy. RECOMMENDATIONS AND DISCUSSION: In this 34-year-old gentleman who presented with multiple complex medical issues, we will monitor the patient closely, continue the current medications, management and symptomatic treatment. Otherwise, at this time, I recommend continue with current medications, symptomatic treatment. DVT prophylaxis. Proton pump inhibitors. Incentive spirometry. We will follow the patient closely with you. Thank you Dr. Andres, for letting us participate in the care of this patient. The patient may be asked to follow with Dr. William closely after discharge. MMLA NENAL / IJN: [id number] /
[2019-07-30] MEDS: LACTATED RINGERS 1,000 ML IV SCH (05:49)
[2019-07-30] MEDS: DEXTROSE 5%-0.45% NACL 1,000 ML IV SCH ×3 (05:50→23:53)
--- NOTE | 2019-07-30 06:25 | P.PN ---
Progress Note - Text Progress Note Date: 07/30/19 Patient's postop day 1 from a colostomy reversal. As an epidural catheter in place running in 6 ML's an hour. Patient appears to be comfortable. He isn't using any when necessary medications overnight. He has been able to stand up. He does still have a Davalos in place per the surgical team. The site appears clean and dry. We'll continue the epidural catheter at the settings. Patient denies any numbness tingling or weakness in his lower extremities. Denies any altered mental status. Please contact anesthesia with any questions or concerns
[2019-07-30] MEDS: HEPARIN SODIUM,PORCINE 5,000 UNIT/ML 1 ML VIAL SQ SCH ×3 (09:25→23:42)
[2019-07-30] MEDS: FAMOTIDINE 20 MG/2 ML VIAL IV SCH (09:25)
[2019-07-30] MEDS: PANTOPRAZOLE 40 MG/10 ML VIAL IVP SCH (09:25)
[2019-07-30] MEDS: ALVIMOPAN 12 MG CAPSULE PO SCH ×2 (09:25→20:31)
--- NOTE | 2019-07-30 10:14 | P.PN ---
Subjective Progress Note Date: 07/30/19 CHIEF COMPLAINT: Ulcerative colitis. HISTORY OF PRESENT ILLNESS: Patient is status post reversal of colostomy, takedown of splenic flexure, lysis of adhesions, repair of incisional hernia, and partial omentectomy. POD #1. Patient examined at the bedside. Epidural infusing and 9 mL an hour. Patient states his pain is tolerable at this time. Patient reports drinking water yesterday afternoon and having an episode of emesis. He is hesitant to try fluids this morning. Patient encouraged to go slow on oral fluids. Denies passing flatus or having a bowel movement. Blood pressure stable. He is tachycardic this morning. Temperature this morning 99.0. PHYSICAL EXAM: VITAL SIGNS: Reviewed. GENERAL: Well-developed in no acute distress. HEENT: No sclera icterus. Extraocular movements grossly intact. Moist buccal mucosa. Head is atraumatic, normocephalic. ABDOMEN: Soft. Nondistended. Appropriate surgical tenderness. Dressing intact with small amount of shadowing present. NEUROLOGIC: Alert and oriented. Cranial nerves II through XII grossly intact. ASSESSMENT: 1. History of colon stricture secondary to ulcerative colitis, status post reversal of colostomy, takedown of splenic flexure, lysis of adhesions, repair of incisional hernia, and partial omentectomy PLAN: -NPO except ice chips -Continue Entereg. Await bowel function -Pain control. Continue epidural. Discontinue postop day #3 -Continue Davalos catheter while epidural in place -Incentive spirometer 10 times an hour -Increase activity as tolerated Nurse practitioner note has been reviewed by physician. Signing provider agrees with the documented findings, assessment, and plan of care. Objective - Vital Signs Vital signs: Vital Signs Temp 99.0 F 07/30/19 07:00 Pulse 117 H 07/30/19 07:38 Resp 17 07/30/19 07:38 BP 139/80 07/30/19 07:00 Pulse Ox 97 07/30/19 07:00 Intake & Output 07/29/19 07/30/19 07/30/19 18:59 06:59 18:59 Intake Total 2462 Output Total 200 1500 700 Balance 2262 -1500 -700 Weight 88.6 kg 88.6 kg Intake: IV 2462 Output: Urine 100 1400 600 Emesis 100 100 Estimated Blood Loss 100 Other: Voiding Method Indwelling Catheter Indwelling Catheter Indwelling Catheter - Labs CBC & Chem 7: 07/29/19 15:39 07/29/19 15:39 Labs: Abnormal Lab Results - Last 24 Hours (Table) 07/29/19 07/29/19 Range/Units 15:39 15:39 WBC 12.2 H (3.8-10.6) k/uL Neutrophils # 10.6 H (1.3-7.7) k/uL Glucose 119 H (74-99) mg/dL
[2019-07-30] MEDS: ACETAMINOPHEN IV (For NPO) 1,000 MG in EMPTY BAG 1 BAG IVPB SCH ×3 (12:58→23:42)
[2019-07-30] MEDS: ROPIVACAINE 250 MG, HYDROMORPHONE (PF) 5 MG in SODIUM CHLORIDE 0.9% 200 ML EPIDURAL PRN (14:15)
--- NOTE | 2019-07-30 15:21 | XR ---
EXAMINATION TYPE: XR chest 1V portable DATE OF EXAM: 07/30/2019 COMPARISON: 11/15/2018 HISTORY: Shortness of breath TECHNIQUE: Single frontal view of the chest is obtained. FINDINGS: There is no focal air space opacity, pleural effusion, or pneumothorax seen. The cardiac silhouette size is within normal limits. The osseous structures are intact. No overt failure. IMPRESSION: No acute process.
--- NOTE | 2019-07-30 16:08 | PN ---
PROGRESS NOTE DATE OF SERVICE: 07/30/2019 This 34-year-old gentleman who was admitted after colostomy reversal by Dr. Andres is being closely monitored. No chest pain. No palpitations. No fever. The patient continues to be tachycardic. PHYSICAL EXAMINATION: Alert and oriented x3. Pulse is 117, blood pressure 139/90, respirations 17, temperature 99 degrees, pulse ox 97% on room air. HEENT: Conjunctivae normal. NECK: No jugular venous distention. CARDIOVASCULAR SYSTEM: S1, S2 muffled. RESPIRATORY SYSTEM: Breath sounds diminished at the bases. Scattered rhonchi and crackles. ABDOMEN: Soft. Status post surgery. LEGS: No edema. No swelling. NERVOUS SYSTEM: No focal deficit. LABS: WBC 12.2 and glucose 119. ASSESSMENT: 1. Status post reversal of colostomy, takedown of splenic flexure. 2. Tachycardia, sinus possibly. 3. History of colectomy for sigmoid colon stricture secondary to Crohn's disease. 4. History of intraabdominal abscess, possibly secondary to Crohn's disease and sepsis previously. 5. History of gastrointestinal bleed. 6. History of bowel obstruction. 7. History of appendectomy. RECOMMENDATIONS AND DISCUSSION: In this 34-year-old gentleman who presented with multiple complex medical issues, we will monitor the patient closely, continue the current medications. Continue the treatment. Recommend EKG. I would also add a small dose of beta blockers. Otherwise, continue the rest of the medications. Proton pump inhibitors. DVT prophylaxis. We will follow the patient closely with you. Thank you, Dr. Andres. Continue the IV fluids. MMODL / IJN: [id number] /
[2019-07-30] MEDS: METOPROLOL TARTRATE 12.5 MG TAB PO SCH ×2 (16:09→20:30)
[2019-07-30] MEDS: diphenhydrAMINE 50 MG/ML 1 ML VIAL IVP PRN ×2 (18:17→23:41)
[2019-07-31] MEDS: ACETAMINOPHEN IV (For NPO) 1,000 MG in EMPTY BAG 1 BAG IVPB SCH (05:10)
[2019-07-31] MEDS: LACTATED RINGERS 1,000 ML IV SCH (05:14)
[2019-07-31] MEDS: DEXTROSE 5%-0.45% NACL 1,000 ML IV SCH ×2 (05:15→15:54)
[2019-07-31] MEDS: PANTOPRAZOLE 40 MG/10 ML VIAL IVP SCH (07:29)
[2019-07-31] MEDS: METOPROLOL TARTRATE 12.5 MG TAB PO SCH ×2 (07:29→21:48)
[2019-07-31] MEDS: ALVIMOPAN 12 MG CAPSULE PO SCH ×2 (07:29→21:48)
[2019-07-31] MEDS: HEPARIN SODIUM,PORCINE 5,000 UNIT/ML 1 ML VIAL SQ SCH ×2 (07:29→16:27)
[2019-07-31] MEDS: diphenhydrAMINE 50 MG/ML 1 ML VIAL IVP PRN ×2 (07:32→19:38)
[2019-07-31 07:54] LABS: Basophils % (A) 0 %; Eosinophils % (A) 0 %; HCT 42.2 % (39.0-53.0); HGB 13.7 gm/dL (13.0-17.5); Lymphocytes # (A) 1.3 k/uL (1.0-4.8); Lymphocytes % (A) 14 %; MCH 29.6 pg (25.0-35.0); MCHC 32.3 g/dL (31.0-37.0); MCV 91.4 fL (80.0-100.0); Mean Platelet Volume 8.2; Monocytes # (A) 0.8 k/uL (0-1.0); Monocytes % (A) 9 %; Neutrophils # (A) 7.4 k/uL (1.3-7.7); Neutrophils % (A) 76 %; Platelet Count 243 k/uL (150-450); RBC 4.62 m/uL (4.30-5.90); RDW 12.9 % (11.5-15.5); WBC 9.7 k/uL (3.8-10.6)
[2019-07-31 08:12] LABS: African American GFR (CKD) >90 (>60 ml/min/1.73 sqM); Anion Gap 9 mmol/L; Blood Urea Nitrogen 16 mg/dL (9-20); Calcium 8.7 mg/dL (8.4-10.2); Carbon Dioxide 28 mmol/L (22-30); Chloride 96 mmol/L (98-107); Glucose 83 mg/dL (74-99); Non-African American GFR(CKD) >90 (>60 ml/min/1.73 sqM); Potassium 4.3 mmol/L (3.5-5.1); Sodium 133 mmol/L (137-145)
[2019-07-31 10:48] LABS: Appearance,Urine Clear (Clear); Bacteria,Urine Rare /hpf; Bilirubin,Urine Negative (Negative); Blood,Urine Negative (Negative); Color,Urine Yellow; Glucose,Urine (UA) Negative (Negative); Ketones,Urine 1+ (Negative); Leukocyte Esterase,Urine Small (Negative); Mucus,Urine Rare /hpf; Nitrite,Urine Negative (Negative); PH, Urine 6.5 (5.0-8.0); Protein,Urine Trace (Negative); RBC,Urine 1 /hpf (0-5); Specific Gravity,Urine 1.028 (1.001-1.035); Urobilinogen,Urine <2.0 mg/dL (<2.0); WBC,Urine 9 /hpf (0-5)
--- NOTE | 2019-07-31 11:48 | P.PN ---
Subjective Progress Note Date: 07/31/19 CHIEF COMPLAINT: Ulcerative colitis. HISTORY OF PRESENT ILLNESS: Patient is status post reversal of colostomy, takedown of splenic flexure, lysis of adhesions, repair of incisional hernia, and partial omentectomy. POD #2. Patient examined at the bedside. Epidural infusing. Patient denies pain at this time. Patient is tolerating small monocytogenes. He denies passing flatus. He is using incentive spirometer. He has been up in the hallway ambulating. Vital signs stable. He is afebrile. PHYSICAL EXAM: VITAL SIGNS: Reviewed. GENERAL: Well-developed in no acute distress. HEENT: No sclera icterus. Extraocular movements grossly intact. Moist buccal mucosa. Head is atraumatic, normocephalic. ABDOMEN: Soft. Nondistended. Appropriate surgical tenderness. Dressing intact with small amount of shadowing present. NEUROLOGIC: Alert and oriented. Cranial nerves II through XII grossly intact. ASSESSMENT: 1. History of colon stricture secondary to ulcerative colitis, status post reversal of colostomy, takedown of splenic flexure, lysis of adhesions, repair of incisional hernia, and partial omentectomy PLAN: -NPO except ice chips. Do not begin clear liquid diet until patient is passing flatus per Dr. Andres -Continue Entereg -Pain control. Continue epidural. Discontinue postop day #3 -Continue Davalos catheter while epidural in place -Incentive spirometer 10 times an hour -Increase activity as tolerated Nurse practitioner note has been reviewed by physician. Signing provider agrees with the documented findings, assessment, and plan of care. Objective - Vital Signs Vital signs: Vital Signs Temp 98.2 F 07/31/19 07:50 Pulse 97 07/31/19 07:50 Resp 16 07/31/19 07:50 BP 137/80 07/31/19 07:50 Pulse Ox 94 L 07/31/19 07:50 Intake & Output 07/30/19 07/31/19 07/31/19 18:59 06:59 18:59 Intake Total 460 50 180 Output Total 1600 1100 Balance -1140 -1050 180 Weight 88.6 kg Intake: Intake, IV Titration 260 Amount ACETAMINOPHEN IV (For NPO 100 ) 1,000 mg In Empty Bag 1 bag @ 400 mls/hr IVPB Q6HR [facility] Rx#:[id number] Lactated Ringers 1,000 ml 160 @ 20 mls/hr IV .Q24H [facility] Rx#:[id number] Oral 200 50 180 Output: Urine 1500 1100 Emesis 100 Other: Voiding Method Indwelling Catheter Indwelling Catheter - Labs CBC & Chem 7: 07/31/19 06:57 07/31/19 06:57 Labs: Abnormal Lab Results - Last 24 Hours (Table) 07/31/19 07/31/19 Range/Units 06:57 10:30 Sodium 133 L (137-145) mmol/L Chloride 96 L (98-107) mmol/L Urine Protein Trace H (Negative) Urine Ketones 1+ H (Negative) Ur Leukocyte Esterase Small H (Negative) Urine WBC 9 H (0-5) /hpf Urine Bacteria Rare H (None) /hpf Urine Mucus Rare H (None) /hpf
--- NOTE | 2019-07-31 14:12 | P.PN ---
Progress Note - Text Anesthesia POD 2. Status Post last in September reversal under general endotracheal anesthesia with an epidrual catheter placed at T12 for post surgical pain releif. VAS (0, 2) with Ropivicaine 0.1% and Dilaudid mcg / cc running at 8 cc / hr. Lower extremity strength (4/4). Minimal sedation. Site looks OK.
--- NOTE | 2019-07-31 15:39 | PN ---
PROGRESS NOTE DATE OF SERVICE: 07/31/2019 This 34-year-old gentleman who was admitted after reversal of colostomy is being closely monitored at this time. The portable chest x-ray which was done today showed no evidence of acute process. PHYSICAL EXAMINATION: Alert and oriented x3. Pulse is 97, blood pressure 137/80, respirations 16, temperature 98.2, pulse ox 94% on room air. HEENT: Conjunctivae normal. NECK: No jugular venous distention. CARDIOVASCULAR SYSTEM: S1, S2 muffled. RESPIRATORY SYSTEM: Breath sounds diminished at the bases. No rhonchi. No crackles. ABDOMEN: Soft, non-tender. LEGS: No edema. No swelling. NERVOUS SYSTEM: No focal deficit. LABS: CBC within normal limits. Sodium 133. UA noted. ASSESSMENT: 1. Status post reversal of colostomy, takedown of splenic fracture. 2. Tachycardia, sinus probably. 3. History of colectomy for sigmoid colon stricture, possibly secondary to Crohn's disease. 4. History of intraabdominal abscess, possibly secondary to Crohn's disease and sepsis previously. 5. History of gastrointestinal bleed. 6. History of bowel resection. 7. History of appendectomy. RECOMMENDATIONS AND DISCUSSION: I recommend to continue current medications, continue with the monitoring, symptomatic treatment. Continue with low-dose beta blockers. We will continue to follow with Surgery. Further recommendations to follow. MMODL / IJN: [id number] /
[2019-07-31] MEDS: ROPIVACAINE 250 MG, HYDROMORPHONE (PF) 5 MG in SODIUM CHLORIDE 0.9% 200 ML EPIDURAL PRN (23:16)
[2019-08-01] MEDS: DEXTROSE 5%-0.45% NACL 1,000 ML IV SCH ×4 (01:13→22:01)
[2019-08-01] MEDS: HEPARIN SODIUM,PORCINE 5,000 UNIT/ML 1 ML VIAL SQ SCH ×4 (01:16→23:04)
[2019-08-01] MEDS: diphenhydrAMINE 50 MG/ML 1 ML VIAL IVP PRN (01:21)
[2019-08-01] MEDS: LACTATED RINGERS 1,000 ML IV SCH ×2 (03:35→09:21)
[2019-08-01] MEDS: ALVIMOPAN 12 MG CAPSULE PO SCH ×2 (09:20→22:00)
[2019-08-01] MEDS: METOPROLOL TARTRATE 12.5 MG TAB PO SCH ×2 (09:20→21:59)
[2019-08-01] MEDS: PANTOPRAZOLE 40 MG/10 ML VIAL IVP SCH (09:20)
[2019-08-01] MEDS ORDERED: HYDROcodone/APAP 5-325MG 1 EACH TAB PO PRN (14:29)
--- NOTE | 2019-08-01 14:29 | P.PN ---
Subjective Progress Note Date: 08/01/19 CHIEF COMPLAINT: Ulcerative colitis status post colostomy reversal HISTORY OF PRESENT ILLNESS: The patient is a 34-year-old male status post colostomy reversal 07/29/2019. He is passing flatus and had bowel movements. "I am hungry." Family is at bedside. ROS: No reports of nausea and vomiting. Has bowel movements. No fevers or chills. No new chest pain. No productive sputum PHYSICAL EXAM: VITAL SIGNS: Reviewed CONSTITUTIONAL: Well developed and in no acute distress. EYES: Conjuctivae without sclera icterus. Extraocular movements grossly intact. HEAD, EARS, NOSE, THROAT: Moist buccal mucosa. Head is atraumatic, normocephalic. Hears conversational speech. No nasal drainage. NECK: Supple. No thyroidomegaly. RESPIRATORY: Non-labored respirations and equal bilateral excursions. CARDIOVASCULAR: Palpable 2+ radial pulses. Regular rate. Regular rhythm. ABDOMEN: Incisions clean dry and intact. Soft. No peritonitis. MUSCULOSKELETAL: No gross deformity of the lower extremities noted. No clubbing. No cyanosis. SKIN: Good skin turgor. Well perfused. NEUROLOGIC: Cranial nerves I through XII grossly intact. No focal or lateralizing signs. PSYCH: Appropriate affect. Alert and oriented to person, place and time. CLINICAL LABS: White blood cell count normal 9.7 ASSESSMENT: 1. Ulcerative colitis 2. Status post colostomy reversal PLAN: 1. Advance diet 2. Start oral pain medications Objective - Vital Signs Vital signs: Vital Signs Temp 98.8 F 08/01/19 07:00 Pulse 96 08/01/19 07:00 Resp 18 08/01/19 08:00 BP 134/85 08/01/19 07:00 Pulse Ox 96 08/01/19 07:00 Intake & Output 07/31/19 08/01/19 08/01/19 18:59 06:59 18:59 Intake Total 430 20 Output Total 850 Balance 430 -830 Intake: Intake, IV Titration 250 Amount Ropivacaine 250 mg 250 Hydromorphone (Pf) 5 mg In Sodium Chloride 0.9% 200 ml @ Per Protocol EPIDURAL .Q0M PRN Rx#: [id number] Oral 180 20 Output: Urine 850 Other: Voiding Method Indwelling Catheter Indwelling Catheter - Labs CBC & Chem 7: 07/31/19 06:57 07/31/19 06:57 Assessment and Plan (1) Ulcerative colitis Current Visit: Yes Status: Acute Code(s): K51.90 - ULCERATIVE COLITIS, UNSPECIFIED, WITHOUT COMPLICATIONS SNOMED Code(s): 93215004 (2) History of colostomy reversal Current Visit: Yes Status: Acute Code(s): Z98.890 - OTHER SPECIFIED POSTPROCEDURAL STATES SNOMED Code(s): 022869878
[2019-08-01] MEDS: IBUPROFEN 600 MG TAB PO SCH ×2 (16:11→23:03)
--- NOTE | 2019-08-01 20:33 | P.PN ---
Progress Note - Text 07/31 1110am 34-year-old male status post colostomy reversal by Dr. Andres. Patient has an epidural catheter for postop pain control with the solution running at 8 mL an hour, patient has a VAS of 1 with no motor or sensory deficits. Plan to DC epidural nurse informed
--- NOTE | 2019-08-01 20:42 | PN ---
PROGRESS NOTE DATE OF SERVICE: 08/01/2019 This 34-year-old gentleman admitted after reversal of colostomy takedown is being closely monitored. Patient has some minimal tachycardia. Patient is on a small dose of beta blank. No chest pain. No palpitations. No fever. EXAM: Alert and oriented x3. Pulse 95, blood pressure 130/87, respirations 16, temperature 98.2, pulse ox 97% on room air. HEENT: Conjunctivae normal. Oral mucosa moist. NECK: No jugular venous distention. No lymph node enlargement. CARDIOVASCULAR: S1, S2. RESPIRATORY: Diminished breath sounds at the bases. Scattered rhonchi, no crackles. ABDOMEN: Soft, nontender. Status post surgery. LEGS: No edema, no swelling. NERVOUS SYSTEM: No focal deficits. LABS: CBC reveals sodium 133. UA noted. ASSESSMENT: 1. Status post reversal of colostomy takedown for splenic flexure. 2. Tachycardia, sinus possibly. 3. History of colectomy, sigmoid colon stricture, possibly related to Crohn's disease. 4. History of intraabdominal abscess, possible related to Crohn's disease and sepsis previously. 5. History of gastrointestinal bleed. 6. History of bowel resection. 7. History of appendectomy. RECOMMENDATIONS AND DISCUSSION: Recommend to continue current medications, continue to monitor, continue symptomatic treatments. Otherwise, at this time incentive spirometry. Closely follow with surgery. Further recommendations to follow. MMODL / IJN: [id number] /
[2019-08-02] MEDS: DEXTROSE 5%-0.45% NACL 1,000 ML IV SCH ×2 (04:45→10:55)
[2019-08-02] MEDS: HEPARIN SODIUM,PORCINE 5,000 UNIT/ML 1 ML VIAL SQ SCH (08:18)
[2019-08-02] MEDS: PANTOPRAZOLE 40 MG/10 ML VIAL IVP SCH (08:18)
[2019-08-02] MEDS: IBUPROFEN 600 MG TAB PO SCH (08:18)
[2019-08-02] MEDS: ALVIMOPAN 12 MG CAPSULE PO SCH (08:19)
[2019-08-02] MEDS: METOPROLOL TARTRATE 12.5 MG TAB PO SCH (08:19)
[2019-08-02 08:31] VITALS: PULSE 116; RESP 16; TEMP 98.3
[2019-08-02 08:48] VITALS: BP 144/79
--- NOTE | 2019-08-02 12:49 | P.DS ---
Providers Date of admission: 07/29/19 10:24 Expected date of discharge: 08/02/19 Attending physician: Roshan Andres Consults: 07/29/19 13:55 Consult Physician Routine Consulting Provider: Bassam Gaffney Consult Reason/Comments: med manage Do you want consulting provider notified?: Yes Primary care physician: Stated None - Discharge Diagnosis(es) (1) Ulcerative colitis Current Visit: Yes Status: Acute (2) History of colostomy reversal Current Visit: Yes Status: Acute Hospital Course: CHIEF COMPLAINT: Ulcerative colitis status post colostomy reversal HISTORY OF PRESENT ILLNESS: The patient is a 34-year-old male status post colostomy reversal 07/29/2019. He is passing flatus and had bowel movements. He tolerated regular diet. He denies any abdominal pain. He is afebrile. Family is at bedside. He is voiding spontaneosly. ROS: No reports of nausea and vomiting. Has bowel movements. No fevers or chills. No new chest pain. No productive sputum PHYSICAL EXAM: VITAL SIGNS: Reviewed CONSTITUTIONAL: Well developed and in no acute distress. EYES: Conjuctivae without sclera icterus. Extraocular movements grossly intact. HEAD, EARS, NOSE, THROAT: Moist buccal mucosa. Head is atraumatic, normocephalic. Hears conversational speech. No nasal drainage. NECK: Supple. No thyroidomegaly. RESPIRATORY: Non-labored respirations and equal bilateral excursions. CARDIOVASCULAR: Palpable 2+ radial pulses. Regular rate. Regular rhythm. ABDOMEN: Dressing dry and intact. Soft. No peritonitis. MUSCULOSKELETAL: No gross deformity of the lower extremities noted. No clubbing. No cyanosis. SKIN: Good skin turgor. Well perfused. NEUROLOGIC: Cranial nerves I through XII grossly intact. No focal or lateralizing signs. PSYCH: Appropriate affect. Alert and oriented to person, place and time. CLINICAL LABS: White blood cell count normal ASSESSMENT: 1. Ulcerative colitis 2. Status post colostomy reversal PLAN: 1. Stable for discharge home 2. Pain medications including ibuprofen and tylenol reviewed 3. Follow up with his surgeon as outpatient in 1 week. Patient Condition at Discharge: Stable Plan - Discharge Summary Discharge Rx Participant: Yes New Discharge Prescriptions: New Hydrocodone/Acetaminophen [[place] 5-325] 1 tab PO Q6HR PRN #10 tab PRN Reason: Pain Ibuprofen [Motrin] 600 mg PO Q8HR PRN #30 tab PRN Reason: Pain Acetaminophen Tab [Tylenol Tab] 1,000 mg PO Q6HR PRN #30 tablet PRN Reason: Pain Continue Ustekinumab [Stelara] 45 mg SQ Q56D Discharge Medication List Ustekinumab [Stelara] 45 mg SQ Q56D 11/02/18 [History] Hydrocodone/Acetaminophen [[place] 5-325] 1 tab PO Q6HR PRN #10 tab 07/31/19 [Rx] Acetaminophen Tab [Tylenol Tab] 1,000 mg PO Q6HR PRN #30 tablet 08/02/19 [Rx] Ibuprofen [Motrin] 600 mg PO Q8HR PRN #30 tab 08/02/19 [Rx] Follow up Appointment(s)/Referral(s): Roshan Andres MD [STAFF PHYSICIAN] - 1 Week Patient Instructions/Handouts: Open Colostomy Reversal (DC) Activity/Diet/Wound Care/Special Instructions: May shower. No bathtb soaks. No lifting over 10 pounds. Please call tomorrow for appt time. Discharge Disposition: HOME SELF-CARE
--- NOTE | 2019-08-02 21:53 | PN ---
PROGRESS NOTE DATE OF SERVICE: 08/02/2019 This 34-year-old gentleman who was admitted after reversal of colostomy is being closely monitored. No chest pain. No palpitations. Patient had mild hypertension and tachycardia. EXAM: Pulse is 116, blood pressure ( ), respirations 16, temperature 98.2, pulse ox 98%. HEENT: Conjunctivae normal. Oral mucosa moist. NECK: No jugular venous distention. No lymph node enlargement. CARDIOVASCULAR: S1, S2. RESPIRATORY: Clear. ABDOMEN: Soft. Status post surgery. LABS: Reviewed. ASSESSMENT: 1. Status post reversal of colostomy takedown splenic future. 2. Tachycardia, sinus possibly with mild hypertension. 3. History of colectomy, sigmoid colon stricture, possibly related to Crohn's disease. 4. History of intraabdominal abscess with possible Crohn disease and sepsis previously. 5. History of gastrointestinal bleed. 6. History of bowel resection. 7. History of appendectomy. RECOMMENDATIONS AND DISCUSSION: I recommend to continue current medications, continue to monitor, symptomatic treatment. Otherwise, at this time I recommend to continue with the small course of beta blockers, Lopressor 12.5 mg daily and follow up closely with outpatient physician, Dr. William. Prescription given. MMODL / IJN: [id number] /
== END 2019-08-02 14:05 | disposition home or self-care (01) | DRG 330 ==
LOC: 2ORMAIN 10:24 → 4SSUR 13:54
PROVIDERS: ADMIT Surgery; ATTEND Surgery
PROC: 0WQF0ZZ Repair Abdominal Wall, Open Approach (ICD-10-PCS; principal; 2019-07-29 12:10)
PROC: 0DBN0ZZ Excision of Sigmoid Colon, Open Approach (ICD-10-PCS; principal; 2019-07-29 12:10)
PROC: 0DN80ZZ Release Small Intestine, Open Approach (ICD-10-PCS; principal; 2019-07-29 12:10)
PROC: 0DBU0ZZ Excision of Omentum, Open Approach (ICD-10-PCS; principal; 2019-07-29 12:10)
DX: Z43.3 Encounter for attention to colostomy (principal); K51.90 Ulcerative colitis, unspecified, without complications; I10 Essential (primary) hypertension; K43.2 Incisional hernia without obstruction or gangrene; R00.0 Tachycardia, unspecified; Z90.49 Acquired absence of other specified parts of digestive tract; Z98.890 Other specified postprocedural states; Z88.8 Allergy status to other drugs, medicaments and biological substances; Z91.030 Bee allergy status
CPT/HCPCS: 71045; 80048; 81001; 84443; 85025; 86850; 86900; 86901; 88304; 88305

== ENCOUNTER → 2020-03-18 | Outpatient (CLI) | payer BC ==
[2020-03-18 16:50] LABS: Basophils # (A) 0.1 k/uL (0-0.2); Basophils % (A) 1 %; Eosinophils # (A) 0.1 k/uL (0-0.7); Eosinophils % (A) 1 %; HCT 45.3 % (39.0-53.0); HGB 14.9 gm/dL (13.0-17.5); Lymphocytes # (A) 1.8 k/uL (1.0-4.8); Lymphocytes % (A) 23 %; MCH 29.9 pg (25.0-35.0); MCHC 32.8 g/dL (31.0-37.0); MCV 91.2 fL (80.0-100.0); Mean Platelet Volume 7.4; Monocytes # (A) 0.6 k/uL (0-1.0); Monocytes % (A) 8 %; Neutrophils % (A) 66 %; Platelet Count 263 k/uL (150-450); RBC 4.96 m/uL (4.30-5.90); RDW 12.3 % (11.5-15.5); WBC 7.6 k/uL (3.8-10.6)
== END | disposition home or self-care (01) ==
LOC: LABPAT 15:45
PROVIDERS: ATTEND Surgery
DX: Z01.818 Encounter for other preprocedural examination (principal); K43.2 Incisional hernia without obstruction or gangrene
CPT/HCPCS: 36415; 85025

== ENCOUNTER 2020-03-29 08:34 | Inpatient (IN) | payer BC ==
[2020-03-28 09:11] VITALS: BMI 26.9
[~2020-03-29 08:34] MED LIST changes: +ACETAMINOPHEN TAB 500 MG TAB PO ONE; -DEXAMETHASONE SOD PHOSPHATE 10 MG/ML 1 ML VIAL IV ONE; +DEXAMETHASONE SOD PHOSPHATE 4 MG/ML 1 ML VIAL IV ONE; -HYDROmorphone 0.5 MG/0.5 ML SYRINGE IVP PRN; -LIDOCAINE 1% (10MG/ML) FOR IV START INTRADERMA PRN; +SCOPOLAMINE 1.5MG/72HR PATCH TRANSDERM ONE; -fentaNYL (PF) 50 MCG/ML 2 ML AMP IVP PRN; -metroNIDAZOLE-NS PMX 500 MG in SALINE 1 100ML.BAG IVPB ONE
[2020-03-29] MEDS ORDERED: LACTATED RINGERS 1,000 ML IV ONE ×3 (09:15→11:13)
[2020-03-29] MEDS ORDERED: MIDAZOLAM 2 MG/2 ML VIAL IVP ONE (09:20)
--- NOTE | 2020-03-29 09:34 | P.ANPRN ---
Procedure Note - Anesthesia - Nerve Block Performed Bilateral Transversus Abdominis Single Time Out Performed: Yes Date of Procedure: 03/29/20 Procedure Start Time: Procedure Stop Time: Location of Patient: PreOp Indication: Acute Post-Operative Pain, Requested by Surgeon Sedation Type: Sedate with meaningful contact maintained Preparation: Sterile Prep Position: Supine Needle Types: Pajunk Needle Gauge: 21 Ultrasound used to visualize needle placement: Yes Ultrasound used to observe medication spread: Yes Injectate: 0.5% Ropivacaine (see comment for volume) (40 ml with decadron 8 mg) Blood Aspirated: No Pain Paresthesia on Injection Noted: No Resistance on Injection: Normal Image Stored and Saved: Yes Events: Uneventful and Well Tolerated
--- NOTE | 2020-03-29 09:39 | P.GSHP ---
History of Present Illness H&P Date: 03/29/20 Chief Complaint: Incisional hernia This a 34-year-old male who has undergone previous reversal of colostomy. Patient left colectomy due to severe inflammatory bowel disease. Patient colostomy which was subsequently reversed. He is developing incisional hernia. Patient presents today for laparoscopic robotic-assisted repair. Past Medical History Past Medical History: GI Bleed Additional Past Medical History / Comment(s): CROHNS. History of Any Multi-Drug Resistant Organisms: None Reported Past Surgical History: Appendectomy, Bowel Resection, Hernia Repair Additional Past Surgical History / Comment(s): COLONOSCOPIES, EYE SURGERY, colostomy with later reversal. Past Anesthesia/Blood Transfusion Reactions: No Reported Reaction Past Psychological History: No Psychological Hx Reported Smoking Status: Never smoker Past Alcohol Use History: Occasional Past Drug Use History: None Reported - Past Family History Mother Family Medical History: No Reported History Medications and Allergies Home Medications Medication Instructions Recorded Confirmed Type Ustekinumab [Stelara] 45 mg SQ Q56D 11/02/18 03/28/20 History Cholecalciferol [Vitamin D3 (25 1,000 unit PO DAILY 03/28/20 03/28/20 History Mcg = 1000 Iu)] Allergies Allergy/AdvReac Type Severity Reaction Status Date / Time adalimumab [From Humira] Allergy Anaphylaxis Verified 03/28/20 09:02 azathioprine [From Imuran] Allergy Anaphylaxis Verified 03/28/20 09:02 infliximab [From Remicade] Allergy Anaphylaxis Verified 03/28/20 09:02 venom-honey bee Allergy Anaphylaxis Verified 03/28/20 09:02 Surgical - Exam Vital Signs Temp Pulse Resp BP Pulse Ox 97.6 F 70 18 133/87 99 03/29/20 08:49 03/29/20 08:49 03/29/20 08:49 03/29/20 08:49 03/29/20 08:49 - General well developed, well nourished, no distress - Eyes PERRL - ENT normal pinna - Neck no masses - Respiratory normal expansion - Cardiovascular Rhythm: regular - Abdomen Abdomen: soft, non tender Hernia: incisional (Midline incisional hernia) Assessment and Plan Assessment: Incisional hernia. We'll perform laparoscopic robotic-assisted repair.
[2020-03-29] MEDS ORDERED: LIDOCAINE 1% INJ 10MG/ML (20 ML MDV) ONE (09:48)
[2020-03-29] MEDS ORDERED: NEOSTIGMINE 1 MG/ML 10 ML VIAL ONE (09:48)
[2020-03-29] MEDS ORDERED: MIDAZOLAM 2 MG/2 ML VIAL ONE (09:48)
[2020-03-29] MEDS ORDERED: fentaNYL (PF) 50 MCG/ML 2 ML AMP ONE (09:48)
[2020-03-29] MEDS ORDERED: ROPIVACAINE 5 MG/ML 30 ML VIAL ONE (09:48)
[2020-03-29] MEDS ORDERED: ROCURONIUM 10 MG/ML (10 ML VIAL) IV ONE (09:48)
[2020-03-29] MEDS ORDERED: KETAMINE 10 MG/ML 20 ML VIAL ONE (09:48)
[2020-03-29] MEDS ORDERED: GLYCOPYRROLATE 0.2 MG/ML 2 ML VIAL ONE (09:48)
[2020-03-29] MEDS ORDERED: PROPOFOL 10 MG/ML 20 ML VIAL IV ONE (09:48)
[2020-03-29] MEDS ORDERED: BUPIVACAINE (PF) 0.5% 30 ML VIAL SQ ONE (10:31)
[2020-03-29] MEDS ORDERED: NALOXONE 0.4 MG/ML 1 ML VIAL IV PRN (11:13)
[2020-03-29] MEDS ORDERED: ONDANSETRON 4 MG/2 ML VIAL IVP PRN (11:13)
--- NOTE | 2020-03-29 11:13 | P.OP ---
Date of Procedure: 03/29/20 Preoperative Diagnosis: Incisional hernia Postoperative Diagnosis: Incisional hernia Procedure(s) Performed: Diagnostic laparoscopy (Incisional hernia with mesh Anesthesia: JILLIAN Surgeon: Roshan Andres Estimated Blood Loss (ml): 10 Pathology: other (Hernia sac) Condition: stable Disposition: PACU Description of Procedure: The patient's placed the operative table in supine position. He received general anesthesia. His abdomen was prepped and draped usual sterile fashion. Patient had an incisional hernia located along his midline scar and at his colostomy site. The 5 mm trochars placed in the pleural cavity in the right upper quadrant and then the abdomen insufflated after adequate insufflation the laparoscope was placed back into the pleural cavity. There is significant adhesions along the midline scar. At this point decided to perform an open repair. The trochars withdrawn. The skin was then incised at the colostomy site and then the colostomy hernia was visualized. The hernia sac was opened. The receptacle was then dissected free and sent to pathology. After the peritoneal was opened. Finger exam of the midline scar revealed hernias along the midline incision. At this point the skin was incised in the midline and then using cautery and subcu tissue divided off the fascia external oblique. The fascial repair was then performed by using number once traffic suture at the colostomy site. The hernia sac and then opened in the midline. And then the fascia was repaired along the midline scar using number once traffic suture. 4 sutures used to repair the hernia. A piece of Prolene mesh was placed over top of the repair and then this was secured SecureStrand tacker. A PAULA drains placed through separate stab incision and brought out through the left epigastric area. The drain was secured with 2-0 nylon. Kolton's fascia is closed 0 Vicryl. Skin was closed peyton. Patient top she will was sent to recovery room in stable condition.
[2020-03-29] MEDS: HYDROmorphone 0.5 MG/0.5 ML SYRINGE IVP PRN ×7 (11:58→23:14)
[2020-03-29] MEDS: KETOROLAC 15 MG/ML 1 ML VIAL IVP SCH ×3 (12:22→23:55)
[2020-03-29] MEDS: LACTATED RINGERS 1,000 ML IV SCH (13:17)
[2020-03-29 20:09] VITALS: RESP 18
[2020-03-29] MEDS: DOCUSATE 100 MG CAP PO SCH (20:19)
--- NOTE | 2020-03-29 23:29 | P.CONS ---
History of Present Illness - Reason for Consult Consult date: 03/29/20 Medical Management - Chief Complaint Hernia repair - History of Present Illness Patient is a 34-year-old male with a known history of Crohn's disease, history of colostomy with reversal, bowel resection and hernia repair. Patient underwent colostomy placement due to severe inflammatory bowel disease and subsequently was reversal. Patient developed incisional hernia and presented today for elective laparoscopic robotic assisted repair of the incisional hernia. Patient tolerated procedure very well. Currently denies any complaints of chest pain or shortness breath. No nausea vomiting. Abdominal pain is controlled with medications. No fever no chills. Patient does take Stelara for Crohn's disease. Review of Systems Constitutional: Patient denies any fever or chills . No generalized weakness or weight loss. Abdomen: Patient denied nausea vomiting and diarrhea and abdominal pain. Cardiovascular: Patient denies any chest pain or short of breath no palp itations. Respiratory: patient denied any cough or sputum production. No shortness of breath Neurologic: Patient denied any numbness or tingling headache. Musculoskeletal: Patient denies any complaints of joint swelling or deformity. Skin: Negative Psychiatric: Negative Endocrine: No heat or cold intolerance. No recent weight gain. Genitourinary: No dysuria or hematuria. All other 14 point ROS negative except the above Past Medical History Past Medical History: GI Bleed Additional Past Medical History / Comment(s): CROHNS. History of Any Multi-Drug Resistant Organisms: None Reported Past Surgical History: Appendectomy, Bowel Resection, Hernia Repair Additional Past Surgical History / Comment(s): COLONOSCOPIES, EYE SURGERY, colostomy with later reversal. Past Anesthesia/Blood Transfusion Reactions: No Reported Reaction Past Psychological History: No Psychological Hx Reported Additional Psychological History / Comment(s): single. no tobacco or alcohol use. no animal exposures. no travel. no experience Smoking Status: Never smoker Past Alcohol Use History: Occasional Past Drug Use History: None Reported - Past Family History Mother Family Medical History: No Reported History Medications and Allergies Home Medications Medication Instructions Recorded Confirmed Type Ustekinumab [Stelara] 45 mg SQ Q56D 11/02/18 03/28/20 History Cholecalciferol [Vitamin D3 (25 1,000 unit PO DAILY 03/28/20 03/28/20 History Mcg = 1000 Iu)] Allergies Allergy/AdvReac Type Severity Reaction Status Date / Time adalimumab [From Humira] Allergy Anaphylaxis Verified 03/28/20 09:02 azathioprine [From Imuran] Allergy Anaphylaxis Verified 03/28/20 09:02 infliximab [From Remicade] Allergy Anaphylaxis Verified 03/28/20 09:02 venom-honey bee Allergy Anaphylaxis Verified 03/28/20 09:02 Physical Exam Vitals: Vital Signs Temp Pulse Pulse Pulse Resp BP BP 03/29/20 20:07 97.4 F L 74 18 126/83 03/29/20 16:15 91 147/105 03/29/20 15:15 79 142/93 03/29/20 14:45 94 155/90 03/29/20 14:15 89 138/87 03/29/20 14:00 93 142/83 03/29/20 13:45 92 140/92 03/29/20 13:30 92 147/81 03/29/20 13:15 98 F 77 17 150/82 03/29/20 12:47 81 16 140/80 03/29/20 12:29 69 16 139/78 03/29/20 12:15 62 16 145/91 03/29/20 12:00 66 16 145/93 03/29/20 11:45 78 16 156/95 03/29/20 11:30 76 16 157/86 03/29/20 11:25 97.2 F L 87 14 173/87 03/29/20 09:24 69 16 127/78 03/29/20 08:49 97.6 F 70 18 133/87 Pulse Ox 03/29/20 20:07 95 03/29/20 16:15 03/29/20 15:15 03/29/20 14:45 03/29/20 14:15 03/29/20 14:00 03/29/20 13:45 03/29/20 13:30 03/29/20 13:15 97 03/29/20 12:47 99 03/29/20 12:29 100 03/29/20 12:15 100 03/29/20 12:00 100 03/29/20 11:45 100 03/29/20 11:30 100 03/29/20 11:25 100 03/29/20 09:24 100 03/29/20 08:49 99 Intake and Output 03/29/20 03/29/20 03/30/20 14:59 22:59 06:59 Intake Total 1675 Output Total 50 100 Balance 1625 -100 Intake: IV 1600 Intake, IV Titration 75 Amount Lactated Ringers 1,000 ml 75 @ 125 mls/hr IV .Q8H ONE Rx#:[id number] Output: Drainage 100 Anterior Abdomen 100 Estimated Blood Loss 50 Other: # Voids 1 Weight 95 kg PHYSICAL EXAMINATION: Patient is lying in the bed comfortably, no acute distress, awake alert and oriented.. HEENT: Normocephalic. Neck is supple. Pupils reactive. Nostrils clear. Oral cavity is moist. Ears reveal no drainage. Neck reveals no JVD, carotid bruits, or thyromegaly. CHEST EXAMINATION: Trachea is central. Symmetrical expansion. Lung mario clear to auscultation and percussion. CARDIAC: Normal S1, S2 with no gallops. No murmurs ABDOMEN: Soft. Bowel sounds normal. No organomegaly. No abdominal bruits. Extremities: reveal no edema. No clubbing or cyanosis Neurologically awake, alert, oriented x3 with well-coordinated movements. No focal deficits noted Skin: No rash or skin lesions. Psychiatric: Coperative. Nonsuicidal Musculoskeletal: No joint swelling or deformity. Normal range of motion. Assessment and Plan Assessment: Status post incisional hernia repair. Crohn's disease currently on Stelara/ History of bowel resection and colostomy bag placement and reversal. History of GI bleed DVT prophylaxis on Lovenox subcu Plan: Patient will be continued on IV hydration and pain management. Bowel regimen. Encourage incentive spirometry and ambulation. Continue with stool softeners and GI and DVT prophylaxis. Follow-up CBC and BMP tomorrow. Further recommendations based on clinical course. Thank you for your consult..
[2020-03-30] MEDS: HYDROmorphone 0.5 MG/0.5 ML SYRINGE IVP PRN (04:49)
[2020-03-30 05:16] LABS: Basophils % (A) 0 %; Eosinophils % (A) 0 %; HGB 13.6 gm/dL (13.0-17.5); Lymphocytes # (A) 1.1 k/uL (1.0-4.8); Lymphocytes % (A) 10 %; MCH 29.4 pg (25.0-35.0); MCHC 31.7 g/dL (31.0-37.0); MCV 92.8 fL (80.0-100.0); Mean Platelet Volume 7.5; Monocytes # (A) 0.8 k/uL (0-1.0); Monocytes % (A) 7 %; Neutrophils # (A) 9.6 k/uL (1.3-7.7); Neutrophils % (A) 82 %; Platelet Count 271 k/uL (150-450); RBC 4.63 m/uL (4.30-5.90); RDW 12.6 % (11.5-15.5); WBC 11.7 k/uL (3.8-10.6)
[2020-03-30] MEDS: KETOROLAC 15 MG/ML 1 ML VIAL IVP SCH ×2 (05:59→12:41)
[2020-03-30] MEDS: LACTATED RINGERS 1,000 ML IV SCH (06:03)
[2020-03-30] MEDS: DOCUSATE 100 MG CAP PO SCH (08:32)
[2020-03-30] MEDS ORDERED: ENOXAPARIN 40 MG/0.4 ML SYRINGE SQ SCH (09:00)
[2020-03-30 10:02] LABS: Anion Gap 7.8 mmol/L (4.00-12.00); BUN/Creat Ratio 19.09 Ratio (12.00-20.00); Calcium 9.2 mg/dL (8.7-10.3); Carbon Dioxide 26.2 mmol/L (21.6-31.8); Non-African American GFR(CKD) 87.1 (60.0-200.0); Potassium 4.7 mmol/L (3.5-5.5)
[2020-03-30] MEDS ORDERED: HYDROcodone/APAP 5-325MG 1 EACH TAB PO PRN (10:48)
[2020-03-30 11:47] VITALS: BP 143/79; PULSE 72; TEMP 97.9
--- NOTE | 2020-03-30 14:07 | P.DS ---
Providers Date of admission: 03/29/20 12:43 Expected date of discharge: 03/30/20 Attending physician: Roshan Andres Consults: 03/29/20 11:13 Consult Physician Routine Consulting Provider: Bassam Gaffney Consult Reason/Comments: Medical management Do you want consulting provider notified?: Yes Primary care physician: Stated None Hospital Course: Discharge diagnosis 1. Incisional hernia status post diagnostic laparoscopy and an incisional hernia repair with mesh Hospital course This a 34-year-old male who has undergone previous reversal of colostomy. Patient left colectomy due to severe inflammatory bowel disease. Patient colostomy which was subsequently reversed. He is developing incisional hernia. Patient is status post diagnostic laparoscopy and an incisional hernia repair with mesh. He tolerated surgery well. Pain is controlled. He is afebrile. He is tolerating diet. He is up and ambulating. He is passing gas. He is stable for discharge. Please refer to chart for any further details. Physician Floor Winder note has been reviewed by physician. Signing provider agrees with the documented findings, assessment, and plan of care. Patient Condition at Discharge: Stable Plan - Discharge Summary Discharge Rx Participant: No New Discharge Prescriptions: New Docusate [Colace] 100 mg PO BID #30 capsule Hydrocodone/Acetaminophen [[place] 5-325] 1 tab PO Q6HR PRN 3 Days #12 tab PRN Reason: Pain Continue Ustekinumab [Stelara] 45 mg SQ Q56D Cholecalciferol [Vitamin D3 (25 Mcg = 1000 Iu)] 1,000 unit PO DAILY Discharge Medication List Ustekinumab [Stelara] 45 mg SQ Q56D 11/02/18 [History] Cholecalciferol [Vitamin D3 (25 Mcg = 1000 Iu)] 1,000 unit PO DAILY 03/28/20 [History] Docusate [Colace] 100 mg PO BID #30 capsule 03/30/20 [Rx] Hydrocodone/Acetaminophen [[place] 5-325] 1 tab PO Q6HR PRN 3 Days #12 tab 03/30/20 [Rx] Follow up Appointment(s)/Referral(s): Roshan Andres MD [STAFF PHYSICIAN] - 04/05/20 1:30 pm Activity/Diet/Wound Care/Special Instructions: No driving while taking [place] No lifting over 10 pounds You may shower. No soaking or tub baths or 2 weeks Very light activity until you are reevaluated at your follow up appointment with your surgeon Diet regular Discharge Disposition: HOME SELF-CARE
== END 2020-03-30 15:21 | disposition home or self-care (01) | DRG 354 ==
LOC: OR 08:34 → 6NMEDSUR 12:43
PROVIDERS: ADMIT Surgery; ATTEND Surgery
PROC: 0WJF4ZZ Inspection of Abdominal Wall, Percutaneous Endoscopic Approach (ICD-10-PCS; 2020-03-29)
PROC: 0WUF0JZ Supplement Abdominal Wall with Synthetic Substitute, Open Approach (ICD-10-PCS; principal; 2020-03-29 09:25)
DX: K43.2 Incisional hernia without obstruction or gangrene (principal); K50.90 Crohn's disease, unspecified, without complications; Z87.19 Personal history of other diseases of the digestive system; Z90.49 Acquired absence of other specified parts of digestive tract; Z98.890 Other specified postprocedural states; Z79.899 Other long term (current) drug therapy; Z88.8 Allergy status to other drugs, medicaments and biological substances; Z91.030 Bee allergy status
CPT/HCPCS: 64488; 80048; 85025; 86850; 86900; 86901

== ENCOUNTER → 2020-12-12 | Outpatient (CLI) | payer BC ==
[2020-12-12 22:55] LABS: HCT 42.2 % (39.6-50.0); HGB 14.5 g/dL (13.0-17.0); MCH 30.6 pg (27.0-32.0); MCHC 34.4 g/dL (32.0-37.0); Mean Platelet Volume 10.5 fL (9.5-12.2); Platelet Count 279 X 10*3/uL (140-440); RBC 4.74 X 10*6/uL (4.40-5.60); RDW 12.4 % (11.5-14.5); WBC 6.27 X 10*3/uL (4.50-10.00)
[2020-12-13 01:27] LABS: Erythrocyte Sedimentation Rate 18 mm/Hr (0-15)
[2020-12-13 02:08] LABS: ALT 29 U/L (10-49); AST 27 U/L (14-35); African American GFR (CKD) 74.9 (60.0-200.0); Albumin/Globulin Ratio 1.69 (1.60-3.17); Alkaline Phosphatase 132 U/L (41-126); BUN/Creat Ratio 15.71 Ratio (12.00-20.00); C Reactive Protein <0.4 mg/dL (0.0-0.8); Calcium 9.6 mg/dL (8.7-10.3); Carbon Dioxide 26.9 mmol/L (21.6-31.8); Chloride 105 mmol/L (96-109); Globulin 2.6 g/dL (1.6-3.3); Glucose 94 mg/dL (70-110); Non-African American GFR(CKD) 64.6 (60.0-200.0); Potassium 4.3 mmol/L (3.5-5.5); Sodium 141 mmol/L (135-145); Total Bilirubin 0.3 mg/dL (0.3-1.2)
[2020-12-13 02:13] LABS: Folate, Serum 12.2 ng/mL
[2020-12-13 03:21] LABS: Hepatitis B Surface AB- Quant 195.9 mIU/mL; Hepatitis B Surface Antibody Reactive (Non-Reactive); Hepatitis B Surface Antigen Non-Reactive (Non-Reactive)
== END | disposition home or self-care (01) ==
LOC: LABWHC1 14:40
PROVIDERS: ATTEND Internal Medicine
DX: K50.80 Crohn's disease of both small and large intestine without complications (principal)
CPT/HCPCS: 36415; 80053; 82306; 82607; 82746; 85027; 85652; 86140; 86480; 86704; 86706; 87340

== ENCOUNTER 2021-06-23 07:03 | Day surgery (SDC) | payer BC ==
[2021-06-20 14:35] VITALS: BMI 27.2
[~2021-06-23 07:03] MED LIST changes: -ACETAMINOPHEN TAB 500 MG TAB PO ONE; -DEXAMETHASONE SOD PHOSPHATE 4 MG/ML 1 ML VIAL IV ONE; -HEPARIN SODIUM,PORCINE 5,000 UNIT/ML 1 ML VIAL SQ ONE; +LACTATED RINGERS 1,000 ML IV SCH; +LIDOCAINE 1% (10MG/ML) FOR IV START INTRADERMA PRN; -MIDAZOLAM 2 MG/2 ML VIAL IV PRN; -ONDANSETRON 4 MG/2 ML VIAL IVP ONE; -SCOPOLAMINE 1.5MG/72HR PATCH TRANSDERM ONE
[2021-06-23 07:33] VITALS: RESP 16; TEMP 96.9
[2021-06-23] MEDS ORDERED: LIDOCAINE 1% INJ 10MG/ML (20 ML MDV) ONE (07:45)
[2021-06-23] MEDS ORDERED: PROPOFOL 10 MG/ML 20 ML VIAL IV ONE (07:45)
[2021-06-23 07:56] LABS: Basophils % (A) 1 %; Eosinophils # (A) 0.1 k/uL (0-0.7); Eosinophils % (A) 2 %; HCT 48.7 % (39.0-53.0); HGB 16.3 gm/dL (13.0-17.5); Lymphocytes # (A) 1.4 k/uL (1.0-4.8); Lymphocytes % (A) 28 %; MCH 30.5 pg (25.0-35.0); MCHC 33.5 g/dL (31.0-37.0); MCV 91.2 fL (80.0-100.0); Monocytes # (A) 0.5 k/uL (0-1.0); Monocytes % (A) 9 %; Neutrophils % (A) 59 %; Platelet Count 266 k/uL (150-450); RBC 5.34 m/uL (4.30-5.90); RDW 12.3 % (11.5-15.5); WBC 5.1 k/uL (3.8-10.6)
--- NOTE | 2021-06-23 08:08 | P.PCN ---
Date of Procedure: 06/23/21 Procedure(s) Performed: BRIEF HISTORY: Patient is a 36-year-old pleasant white male scheduled for an elective colonoscopy as a part of surveillance of long-standing history of procedure colitis diagnosed in 2008. The patient was treated with Humira, Remicade and Imuran in the past and had side effects. He underwent sigmoid colectomy in 2019 by for stricturing disease and since then has been maintained on Juany injections every 8 weeks and since then has been on clinical remission. Procedure PERFORMED: Colonoscopy with random biopsy . PREOPERATIVE DIAGNOSIS: long-standing history of Crohn's ileocolitis diagnosed in 2008. IV sedation per Anesthesia. PROCEDURE: After informed consent was obtained, the patient, was brought into the endoscopy unit. IV sedation was administered by Anesthesia under continuous monitoring. Digital rectal examination was normal. Initially the Olympus CF-160 flexible video colonoscope was then inserted in the rectum, and there was an anastomosis noted in the proximal rectum at 10 cm from the anal verge which appeared slightly narrowed. The regular scope could not be advanced and hence the scope was removed and a pediatric scope was introduced into the rectum and gradually advanced into the cecum. Terminal ileum was visualized and appeared normal. gradually advanced into the cecum without any difficulty. Careful examination was performed as the scope was gradually being withdrawn. Ileocecal valve and the appendiceal orifice were visualized and appeared normal. Prep was excellent. Mucosa of the cecum, ascending colon, transverse colon, descending colon, sigmoid colon, and rectum had scattered pseudopolyps and changes consistent with quite sent colitis. Random biopsies were done from cecum to rectum at every 10 cm into well. The anastomosis from sigmoid colectomy was located proximal rectum at 10 cm from the anal verge there appeared slightly nodular but no active disease. Retroflexion was performed in the rectum and no lesions were seen. The patient tolerated the procedure well. IMPRESSION: Surgical anastomosis in the proximal rectum from previous sigmoid colectomy appeared slightly narrow but no active colitis noted Rest of the colon has quite sent colitis with scattered pseudopolyps Normal terminal ileum RECOMMENDATIONS: Findings of this examination were discussed with the patient as well as his family. He was advised to follow with the biopsy results. He will continue with stelara injections every 8 weeks and follow up in office in 6 months.
[2021-06-23 08:20] LABS: Albumin 4.9 g/dL (3.5-5.0); Calcium 10.2 mg/dL (8.4-10.2); Total Bilirubin 1.1 mg/dL (0.2-1.3); Total Protein 8.7 g/dL (6.3-8.2)
[2021-06-23 08:27] LABS: Potassium 4.3 mmol/L (3.5-5.1)
[2021-06-23 08:30] VITALS: BP 138/79; PULSE 89
== END 2021-06-23 08:40 | disposition home or self-care (01) ==
LOC: ORWHC2ENDO 07:03
PROVIDERS: ATTEND Internal Medicine Gastroenterology
DX: K50.80 Crohn's disease of both small and large intestine without complications (principal)
CPT/HCPCS: 45380; 88305; 80053; 85025; J2001; J2704

== ENCOUNTER → 2022-04-10 | Outpatient (CLI) | payer BC ==
[2022-04-10 22:50] LABS: Basophils # (A) 0.05 X 10*3/uL (0.00-0.10); Basophils % (A) 0.5 %; Eosinophils # (A) 0.07 X 10*3/uL (0.04-0.35); Eosinophils % (A) 0.8 %; HCT 44.4 % (39.6-50.0); HGB 15.1 g/dL (13.0-17.0); Immature Grans, Automated 0.3 %; Lymphocytes # (A) 2.86 X 10*3/uL (0.90-5.00); Lymphocytes % (A) 30.9 %; MCH 29.6 pg (27.0-32.0); MCV 87.1 fL (80.0-97.0); Mean Platelet Volume 10.6 fL (9.5-12.2); Monocytes # (A) 0.99 X 10*3/uL (0.20-1.00); Monocytes % (A) 10.7 %; NRBC Per 100 WBC 0 /100 WBCS (0.0-0.0); Neutrophils # (A) 5.27 X 10*3/uL (1.80-7.70); Neutrophils % (A) 56.8 %; Platelet Count 282 X 10*3/uL (140-440); RDW 12.7 % (11.5-14.5); WBC 9.27 X 10*3/uL (4.50-10.00)
[2022-04-10 22:58] LABS: ALT 23 U/L (10-49); AST 26 U/L (14-35); African American GFR (CKD) 81.4 (60.0-200.0); Albumin 4.6 g/dL (3.8-4.9); Alkaline Phosphatase 120 U/L (41-126); BUN/Creat Ratio 19.23 Ratio (12.00-20.00); Calcium 9.7 mg/dL (8.7-10.3); Carbon Dioxide 27.9 mmol/L (20.0-27.5); Chloride 100 mmol/L (96-109); Globulin 2.7 g/dL (1.6-3.3); Glucose 83 mg/dL (70-110); Non-African American GFR(CKD) 70.2 (60.0-200.0); Potassium 4.4 mmol/L (3.5-5.5); Sodium 139 mmol/L (135-145); Total Bilirubin <0.15 mg/dL (0.30-1.20); Total Protein 7.3 g/dL (6.2-8.2)
== END | disposition home or self-care (01) ==
LOC: LABWHC1 15:58
PROVIDERS: ATTEND Internal Medicine Gastroenterology
DX: K50.80 Crohn's disease of both small and large intestine without complications (principal)
CPT/HCPCS: 36415; 80053; 85025

== ENCOUNTER → 2022-09-05 | Outpatient (CLI) | payer BC ==
[2022-09-05 21:59] LABS: Basophils # (A) 0.03 X 10*3/uL (0.00-0.10); Basophils % (A) 0.3 %; Eosinophils # (A) 0 X 10*3/uL (0.04-0.35); Eosinophils % (A) 0 %; HCT 43.6 % (39.6-50.0); HGB 14.1 g/dL (13.0-17.0); MCH 29.2 pg (27.0-32.0); MCHC 32.3 g/dL (32.0-37.0); MCV 90.3 fL (80.0-97.0); Mean Platelet Volume 10.2 fL (9.5-12.2); Monocytes # (A) 0.99 X 10*3/uL (0.20-1.00); Monocytes % (A) 9.5 %; NRBC Per 100 WBC 0 /100 WBCS (0.0-0.0); Neutrophils # (A) 6.93 X 10*3/uL (1.80-7.70); Neutrophils % (A) 66.2 %; Platelet Count 391 X 10*3/uL (140-440); RBC 4.83 X 10*6/uL (4.40-5.60); RDW 12.6 % (11.5-14.5); WBC 10.45 X 10*3/uL (4.50-10.00)
[2022-09-05 22:05] LABS: ALT 22 U/L (10-49); AST 17 U/L (14-35); African American GFR (CKD) 92.7 (60.0-200.0); Albumin 4.4 g/dL (3.8-4.9); Albumin/Globulin Ratio 1.44 (1.60-3.17); Alkaline Phosphatase 111 U/L (41-126); BUN/Creat Ratio 19.91 Ratio (12.00-20.00); Blood Urea Nitrogen 23.1 mg/dL (9.0-27.0); Calcium 9.9 mg/dL (8.7-10.3); Carbon Dioxide 28.5 mmol/L (20.0-27.5); Chloride 101 mmol/L (96-109); Glucose 102 mg/dL (70-110); Potassium 4.4 mmol/L (3.5-5.5); Sodium 139 mmol/L (135-145); Total Bilirubin <0.15 mg/dL (0.30-1.20); Total Protein 7.4 g/dL (6.2-8.2)
== END | disposition home or self-care (01) ==
LOC: LABWHC1 15:57
PROVIDERS: ATTEND Internal Medicine Gastroenterology
DX: K50.80 Crohn's disease of both small and large intestine without complications (principal)
CPT/HCPCS: 36415; 80053; 85025

== ENCOUNTER → 2023-09-06 | Outpatient (CLI) | payer BC ==
[2023-09-06 15:48] LABS: Basophils # (A) 0.02 X 10*3/uL (0.00-0.10); Basophils % (A) 0.4 %; Eosinophils # (A) 0.07 X 10*3/uL (0.04-0.35); Eosinophils % (A) 1.2 %; HCT 44.6 % (39.6-50.0); HGB 14.7 g/dL (13.0-17.0); Lymphocytes # (A) 2.06 X 10*3/uL (0.90-5.00); Lymphocytes % (A) 36.3 %; MCH 28.7 pg (27.0-32.0); MCV 87.1 FL (80.0-97.0); Mean Platelet Volume 10.1 FL (9.5-12.2); Monocytes % (A) 12.3 %; NRBC Per 100 WBC 0 X 10*3/uL (0.00-0.01); Neutrophils % (A) 49.4 %; Platelet Count 284 X 10*3/uL (140-440); RBC 5.12 X 10*6/uL (4.40-5.60); WBC 5.67 X 10*3/uL (4.50-10.00)
[2023-09-06 16:42] LABS: ALT 21 U/L (10-49); AST 20 U/L (14-35); Albumin 4.5 g/dL (3.8-4.9); Albumin/Globulin Ratio 1.67 Ratio (1.60-3.17); Alkaline Phosphatase 121 U/L (41-126); BUN/Creat Ratio 12.77 Ratio (12.00-20.00); Blood Urea Nitrogen 16.6 mg/dL (9.0-27.0); Calcium 10.1 mg/dL (8.7-10.3); Chloride 104 mmol/L (96-109); Globulin 2.7 g/dL (1.6-3.3); Glucose 91 mg/dL (70-110); Potassium 4.9 mmol/L (3.5-5.5); Sodium 141 mmol/L (135-145); Total Bilirubin 0.2 mg/dL (0.3-1.2); Total Protein 7.2 g/dL (6.2-8.2)
== END | disposition home or self-care (01) ==
LOC: LABWHC1 09:19
PROVIDERS: ATTEND Internal Medicine Gastroenterology
DX: K50.80 Crohn's disease of both small and large intestine without complications (principal)
CPT/HCPCS: 36415; 80053; 85025

== ENCOUNTER 2024-03-27 10:18 | Day surgery (SDC) | payer BC ==
[2024-03-27 11:17] VITALS: TEMP 97.5
[2024-03-27] MEDS: IV FLUID CONTINUATION 1,000 ML IV ONE (11:22)
[2024-03-27] MEDS: LACTATED RINGERS 1,000 ML IV SCH (11:23)
[2024-03-27] MEDS ORDERED: LIDOCAINE 1% INJ 10MG/ML (20 ML MDV) ONE (12:37)
[2024-03-27] MEDS ORDERED: PROPOFOL 10 MG/ML 20 ML VIAL IV ONE (12:37)
--- NOTE | 2024-03-27 12:50 | P.PCN ---
Date of Procedure: 03/27/24 Procedure(s) Performed: BRIEF HISTORY: Patient is a 38-year-old pleasant white male scheduled for an elective colonoscopy as a part of screening for colon cancer and history of Crohn's colitis that was diagnosed in 2008. He is presently maintained on Stelara injections every 8 weeks and remains in clinical remission. He underwent sigmoid colectomy in 2019 for stricturing disease. PROCEDURE PERFORMED: Colonoscopy with biopsy PREOPERATIVE DIAGNOSIS: History of Crohn's colitis. IV sedation per Anesthesia. PROCEDURE: After informed consent was obtained, the patient, was brought into the endoscopy unit. IV sedation was administered by Anesthesia under continuous monitoring. Digital rectal examination was normal. Initially the Olympus CF-160 flexible video colonoscope was then inserted in the rectum, gradually advanced into the cecum without any difficulty. Careful examination was performed as the scope was gradually being withdrawn. Ileocecal valve and the appendiceal orifice were visualized and appeared normal. Terminal ileum was intubated in 20 cm visualized and appeared normal. Prep was excellent. Mucosa of the cecum, ascending colon, transverse colon, descending colon, sigmoid colon, and rectum appeared normal. Surgical anastomosis was located at 15 cm from the anal verge appeared slightly narrowed but no active colitis noted. Scattered pseudopolyps noted in the right colon. Random biopsies were done from cecum to rectum at every 10 cm intervals. Retroflexion was performed in the rectum and no lesions were seen. The patient tolerated the procedure well. IMPRESSION: Normal-appearing colon from rectum to cecum with no evidence of active colitis or colorectal neoplasia except for scattered pseudopolyps. Surgical anastomosis located in the proximal rectum at 15 cm from anal verge slightly narrowed but no active colitis noted... RECOMMENDATIONS: Findings of this examination were discussed with the patient as well as his family. He was advised to follow-up the biopsy results. Continue Stelara injections every 8 weeks. If the biopsy does not show any evidence of dysplasia he can have repeat colonoscopy in 2 years..
[2024-03-27 12:56] VITALS: RESP 14
[2024-03-27 13:14] VITALS: BP 119/77; PULSE 71
== END 2024-03-27 13:26 | disposition home or self-care (01) ==
LOC: ORWHC2ENDO 10:18
PROVIDERS: ATTEND Internal Medicine Gastroenterology
DX: K50.10 Crohn's disease of large intestine without complications (principal); K62.89 Other specified diseases of anus and rectum; Z79.899 Other long term (current) drug therapy; Z90.49 Acquired absence of other specified parts of digestive tract; Z88.8 Allergy status to other drugs, medicaments and biological substances
CPT/HCPCS: 88305; 45380; J2003; J2704

== ENCOUNTER → 2024-04-01 | Outpatient (CLI) | payer BC ==
[2024-04-01 18:41] LABS: Basophils # (A) 0.03 X 10*3/uL (0.00-0.10); Basophils % (A) 0.5 %; Eosinophils # (A) 0.06 X 10*3/uL (0.04-0.35); Eosinophils % (A) 0.9 %; HCT 44.8 % (39.6-50.0); Lymphocytes # (A) 2.28 X 10*3/uL (0.90-5.00); Lymphocytes % (A) 34.3 %; MCH 29.4 pg (27.0-32.0); MCHC 33.5 g/dL (32.0-37.0); MCV 87.7 FL (80.0-97.0); Mean Platelet Volume 10.5 FL (9.5-12.2); Monocytes # (A) 0.77 X 10*3/uL (0.20-1.00); Monocytes % (A) 11.6 %; NRBC Per 100 WBC 0 X 10*3/uL (0.00-0.01); Neutrophils % (A) 52.5 %; Platelet Count 299 X 10*3/uL (140-440); RBC 5.11 X 10*6/uL (4.40-5.60); RDW 12.5 % (11.5-14.5); WBC 6.65 X 10*3/uL (4.50-10.00)
[2024-04-01 18:42] LABS: ALT 23 U/L (10-49); AST 24 U/L (14-35); Albumin 4.6 g/dL (3.8-4.9); Albumin/Globulin Ratio 1.59 Ratio (1.60-3.17); Alkaline Phosphatase 119 U/L (41-126); BUN/Creat Ratio 14.67 Ratio (12.00-20.00); Blood Urea Nitrogen 17.6 mg/dL (9.0-27.0); Calcium 10.1 mg/dL (8.7-10.3); Carbon Dioxide 29.3 mmol/L (21.6-31.8); Chloride 102 mmol/L (96-109); Globulin 2.9 g/dL (1.6-3.3); Glucose 92 mg/dL (70-110); Potassium 4.8 mmol/L (3.5-5.5); Sodium 141 mmol/L (135-145); Total Bilirubin 0.2 mg/dL (0.3-1.2); Total Protein 7.5 g/dL (6.2-8.2)
== END | disposition home or self-care (01) ==
LOC: LABWHC1 15:31
PROVIDERS: ATTEND Internal Medicine Gastroenterology
DX: K50.80 Crohn's disease of both small and large intestine without complications (principal)
CPT/HCPCS: 36415; 80053; 85025